=== PATIENT | female | born 1985 | race American Indian/Alaskan Native ===

== ENCOUNTER 2017-08-17 13:41 | Inpatient (IN) | payer MEDICAID ==
[2017-08-17] MEDS ORDERED: TYLENOL PO PRN (15:01)
[2017-08-17 15:29] LABS: Hematocrit 31.6 % (30.3-42.9); Hemoglobin 10.4 gm/dl (10.1-14.3); Mean Corpuscular HGB Conc 33 % (30-34); Mean Corpuscular Hemoglobin 28 pg (28-32); Mean Corpuscular Volume 86 fl (79-97); Platelet Count 260 K/mm3 (140-440); Red Blood Count 3.67 M/mm3 (3.65-5.03); Red Cell Distribution Width 13.9 % (13.2-15.2); White Blood Count 7.7 K/mm3 (4.5-11.0)
[2017-08-17 15:49] LABS: Alanine Aminotransferase 9 units/L (7-56); Lactate Dehydrogenase 330 units/L (91-180); Uric Acid 4.4 mg/dL (3.5-7.6)
--- NOTE | 2017-08-17 16:02 | History and Physical Report ---
History of Present Illness Date of examination: 08/17/17 Date of admission: 08/17/17 15:12 Chief complaint: SIUP at 26 weeks Elevated BP Visual disturbances History of present illness: Patient is a 32 year old female , lMP 02/23/17, EDC 11/22/17 who is at 26 weeks and 1 day gestation who was sent form [facility] [place] ED for elevated BP and visual disturbances. She is a patient of [facility] [employer] who has a h/o chronic HTN and has been on labetolol 200 mg BID. She also has been seeing [facility]. She had missed several PN appointments. As per patient, she developed white spots in front of her eyes yesterday. She denied any headache, RUQ pain, or dizziness. She reported good movement. She went to the ER at [facility] [place] and was transferred here because there is no OB service over there. On arrival here , her BP was 156/104, repeat BP was 147/94. PMH: migraines, chronic HTN, bipolar. PSH: C/section x 1 Allergy: NKDA Social: denies any smoking, ETOH, IVDA. Fam Hx: DM, CAD, cancer. Meds: labetolol, PNV ROS: as above. Prenatals labs: early GcT 158 Physical exam: Gnl: NAD Vitals:BP 153/97, T98.1F, HR 97, RR 18 HEENT: normal Abd: soft, NT, gravid uterus 30 cm fundus. Vagina: cervix closed/long/post. Ext: no edema, no calf TN, no Idalia's sign. Labs: H/H: 10.4/31.6 Uric acid: 4.4, LFTs: WNL. Assessment: 1. 32 year old at 26 weeks and 1 day gestation with superimposed pre- eclampsia on chronic HTN. 2. Previous C/section x 1 Plan: 1. Admit to Labor and delivery. 2. start magnesium. Monitor Mg level. Monitor urine output. Monitor BP. 3. Start 24-hr urine. 4. [facility] consult. 5. GCT before 28 weeks. 6. Sonogram for BPP and growth. She was admitted amd Mg sulfate was started. She is is being maintained at 2gm/ hr. 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 STATE History: abnormal PAP smear, herpes Family/Genetic History: diabetes, heart disease, hypertension, cancer (breast, colon, skin) Social history: no significant social history - Obstetrical History Expected Date of Delivery: 11/22/17 Actual Gestation: 26 Week(s) 1 Day(s) : 5 Para: 4 Hx # Term Pregnancies: 2 (pre-eclampsia) Number of Pregnancies: 2 (#3, at 36 weeks, pre-eclampsia, #4, Emergency C/section at 31 weeks for NRFHT ) Number of Living Children: 4 Medications and Allergies Allergies Allergy/AdvReac Type Severity Reaction Status Date / Time No Known Allergies Allergy Verified 11/14/13 21:30 Home Medications Medication Instructions Recorded Confirmed Last Taken Type Labetalol HCl [Labetalol HCl] 300 mg PO BID 11/14/13 12/27/13 12/26/13 17:30 History 300 Pnv with Ca,No.72/Iron/FA 1 tab PO DAILY 11/14/13 12/27/13 12/26/13 12:30 History [ Plus Tablet] 1 HYDROcodone/APAP 10-325 [[place] 1 each PO Q8HR PRN #20 tablet 03/22/14 Unknown Rx 10/325] Active Meds: Active Medications Acetaminophen (Tylenol) 650 mg PO Q4H PRN PRN Reason: Pain MILD(1-3)/Fever >100.5/MAO Docusate Sodium (Colace) 100 mg PO Q12H PRN PRN Reason: Constipation Multivitamins/Iron/Calcium ( Vitamin) 1 each PO QDAY NOELLE Review of Systems Eyes: blurred vision - Vital Signs Vital signs: Vital Signs Temp Resp Pulse Ox 98.1 F 18 98 08/17/17 14:01 08/17/17 14:01 08/17/17 14:01 Temp Pulse Resp BP Pulse Ox 98.1 F 102 H 18 149/97 99 08/17/17 14:01 08/17/17 15:57 08/17/17 14:01 08/17/17 15:06 08/17/17 15:57 - Physical Exam Breasts: Positive: deferred Cardiovascular: Normal S1, Normal S2 Lungs: Positive: Clear to auscultation Vulva: both: normal Cervix: Positive: other (Closed/long/post) Uterus: Positive: other (30 week size) Adnexa: both: normal Deep Tendon Reflex Grade: Normal +2 - Obstetrical FHR: other (130's bpm, + accels) Cervical Dilatation: 0 (closed/long/post) Cervical Effacement Percentage: 0 Uterine Contraction Pattern: Absent Results Result Diagrams: 08/17/17 14:20 08/17/17 14:20 Abnormal lab results 08/17/17 Range/Units 14:20 Creatinine 0.4 L (0.7-1.2) mg/dL Lactate Dehydrogenase 330 H (91-180) units/L All other labs normal. Ultrasound: pending Assessment and Plan - Patient Problems (1) Pre-eclampsia superimposed on chronic hypertension, antepartum Onset Date: ~08/17/17 Current Visit: Yes Status: Acute Plan to address problem: 1. Admit to Labor and Delivery Floor. 2. Mg sulfate 4 gm loading dose, then at 2 gm/hr. Monitor Mg level Q 6 hrs. 3. Toxemia labs sent. F/U results. 24-hr urine for protein and Cr clearance. 3. Monitor BP, urine output, 4. Continous monitoring. 5. [facility] consult. (2) Previous delivery, antepartum Current Visit: Yes Status: Acute
[2017-08-17] MEDS ORDERED: MAGNESIUM SULFATE 4GM/100ML 4 GM/100 ML BAG IV ONE (16:35)
[2017-08-17] MEDS ORDERED: LACTATED RINGERS 1,000 ML ONE (17:11)
[2017-08-17] MEDS: MAGNESIUM SULFATE 40GM/1000ML 40 GM/1,000 ML BAG IV SCH (18:06)
[2017-08-18] MEDS ORDERED: LACTATED RINGERS 1,000 ML ONE ×2 (07:01→23:39)
--- NOTE | 2017-08-18 07:32 | Ultrasound Report ---
ULTRASOUND BIOPHYSICAL PROFILE: History: well being, chronic hypotension, lower abdominal pain during Technique: Transabdominal ultrasound with Doppler interrogation. 2 - breathing movements 2 - movements 2 - posture and tone 2 - Qualitative amniotic fluid volume 8 - TOTAL SCORE OF POSSIBLE 8 Heart Rate (bpm) 153
--- NOTE | 2017-08-18 09:06 | Progress Note ---
Assessment and Plan - Patient Problems (1) Pre-eclampsia superimposed on chronic hypertension, antepartum Onset Date: ~08/17/17 Current Visit: Yes Status: Acute (2) Previous delivery, antepartum Current Visit: Yes Status: Acute Subjective - Subjective Date of service: 08/18/17 Interval history: Patient is a 32 year old female , lMP 02/23/17, EDC 11/22/17 who is at 26 weeks and 2 day gestation who was sent form [facility] ED for elevated BP and visual disturbances. She is a patient of [facility] [employer] who has a h/o chronic HTN and has been on labetolol 200 mg BID. She also [facility]. She had missed several PN appointments. As per patient, she developed white spots in front of her eyes yesterday. She denied any headache, RUQ pain, or dizziness. She reported good movement. She went to the ER at [facility] and was transferred here because there is no OB service over there. On arrival here , her BP was 156/104, repeat BP was 147/94. Since admission, BP has been stable in the 130/80's range. Today, she denies any headache, visual changes or RUQ pain. NsT is CAT 1, BPP is 8/8. She has been on magnesium sulfate and level is therapeutic. LFTs were normal. PMH: migraines, chronic HTN, bipolar. PSH: C/section x 1 Allergy: NKDA Social: denies any smoking, ETOH, IVDA. Fam Hx: DM, CAD, cancer. Meds: labetolol, PNV ROS: as above. Prenatals labs: early GcT 158 Physical exam: Gnl: NAD Vitals:BP 153/97, T98.1F, HR 97, RR 18 HEENT: normal Abd: soft, NT, gravid uterus 30 cm fundus. Vagina: cervix closed/long/post. Ext: no edema, no calf TN, no Idalia's sign. Labs: H/H: 10.4/31.6 Uric acid: 4.4, LFTs: WNL. Mg level 4.6. Assessment: 1. 32 year old at 26 weeks and 2 day gestation with superimposed pre- eclampsia on chronic HTN. She has been on Mg. 2. Previous C/section x 1. Plan: 1. Admit to Labor and delivery. 2. Monitor Mg level. Monitor urine output. Monitor BP. 3. F/U 24-hr urine. 4. [facility] consult. 5. GCT before 28 weeks. She was admitted amd Mg sulfate was started. She is is being maintained at 2gm/ hr. Objective - Vital Signs Vital Signs: Vital Signs - 12hr 08/17/17 08/17/17 08/17/17 21:07 21:10 21:12 Temperature Pulse Rate 116 H 114 H 113 H Respiratory Rate Blood Pressure 129/68 Blood Pressure [Left] O2 Sat by Pulse 97 94 95 Oximetry 08/17/17 08/17/17 08/17/17 21:17 21:22 21:28 Temperature Pulse Rate 117 H 111 H 114 H Respiratory Rate Blood Pressure Blood Pressure [Left] O2 Sat by Pulse 98 98 98 Oximetry 08/17/17 08/17/17 08/17/17 21:33 21:38 21:40 Temperature Pulse Rate 125 H 107 H 107 H Respiratory Rate Blood Pressure 131/85 Blood Pressure [Left] O2 Sat by Pulse 98 97 Oximetry 08/17/17 08/17/17 08/17/17 21:43 21:48 21:53 Temperature Pulse Rate 109 H 107 H 111 H Respiratory Rate Blood Pressure Blood Pressure [Left] O2 Sat by Pulse 97 97 98 Oximetry 08/17/17 08/17/17 08/17/17 21:58 22:03 22:08 Temperature Pulse Rate 107 H 104 H 107 H Respiratory Rate Blood Pressure Blood Pressure [Left] O2 Sat by Pulse 97 97 98 Oximetry 08/17/17 08/17/17 08/17/17 22:10 22:13 22:18 Temperature Pulse Rate 107 H 108 H 112 H Respiratory Rate Blood Pressure 131/81 Blood Pressure [Left] O2 Sat by Pulse 97 97 Oximetry 08/17/17 08/17/17 08/17/17 22:23 22:28 22:33 Temperature Pulse Rate 107 H 107 H 107 H Respiratory Rate Blood Pressure Blood Pressure [Left] O2 Sat by Pulse 99 98 99 Oximetry 08/17/17 08/17/17 08/17/17 22:38 22:40 22:43 Temperature Pulse Rate 106 H 111 H 110 H Respiratory Rate Blood Pressure 131/92 Blood Pressure [Left] O2 Sat by Pulse 99 98 Oximetry 08/17/17 08/17/17 08/17/17 22:48 22:53 22:58 Temperature Pulse Rate 104 H 100 H 99 H Respiratory Rate Blood Pressure Blood Pressure [Left] O2 Sat by Pulse 99 99 100 Oximetry 08/17/17 08/17/17 08/17/17 23:03 23:08 23:10 Temperature Pulse Rate 99 H 102 H 105 H Respiratory Rate Blood Pressure 157/86 Blood Pressure [Left] O2 Sat by Pulse 98 99 Oximetry 08/17/17 08/17/17 08/17/17 23:13 23:18 23:23 Temperature Pulse Rate 102 H 107 H 113 H Respiratory Rate Blood Pressure Blood Pressure [Left] O2 Sat by Pulse 99 98 100 Oximetry 08/17/17 08/17/17 08/17/17 23:28 23:33 23:38 Temperature Pulse Rate 110 H 104 H 108 H Respiratory Rate Blood Pressure Blood Pressure [Left] O2 Sat by Pulse 98 98 99 Oximetry 08/17/17 08/17/17 08/17/17 23:40 23:43 23:48 Temperature Pulse Rate 100 H 102 H 105 H Respiratory Rate Blood Pressure 138/83 Blood Pressure [Left] O2 Sat by Pulse 98 98 Oximetry 08/17/17 08/17/17 08/18/17 23:53 23:58 00:03 Temperature Pulse Rate 104 H 104 H 103 H Respiratory Rate Blood Pressure Blood Pressure [Left] O2 Sat by Pulse 98 99 99 Oximetry 08/18/17 08/18/17 08/18/17 00:08 00:13 00:18 Temperature Pulse Rate 104 H 104 H 104 H Respiratory Rate Blood Pressure Blood Pressure [Left] O2 Sat by Pulse 99 100 99 Oximetry 08/18/17 08/18/17 08/18/17 00:23 00:28 00:33 Temperature Pulse Rate 105 H 104 H 105 H Respiratory Rate Blood Pressure Blood Pressure [Left] O2 Sat by Pulse 99 98 99 Oximetry 08/18/17 08/18/17 08/18/17 00:38 00:40 00:43 Temperature Pulse Rate 101 H 100 H 105 H Respiratory Rate Blood Pressure 142/84 Blood Pressure [Left] O2 Sat by Pulse 98 99 Oximetry 08/18/17 08/18/17 08/18/17 00:48 00:53 00:58 Temperature Pulse Rate 101 H 100 H 99 H Respiratory Rate Blood Pressure Blood Pressure [Left] O2 Sat by Pulse 97 99 99 Oximetry 08/18/17 08/18/17 08/18/17 01:03 01:08 01:10 Temperature Pulse Rate 103 H 98 H 98 H Respiratory Rate Blood Pressure 131/83 Blood Pressure [Left] O2 Sat by Pulse 99 98 Oximetry 08/18/17 08/18/17 08/18/17 01:13 01:18 01:23 Temperature Pulse Rate 99 H 102 H 104 H Respiratory Rate Blood Pressure Blood Pressure [Left] O2 Sat by Pulse 99 99 99 Oximetry 08/18/17 08/18/17 08/18/17 01:28 01:33 01:35 Temperature Pulse Rate 100 H 98 H 101 H Respiratory Rate Blood Pressure Blood Pressure [Left] O2 Sat by Pulse 99 98 89 Oximetry 08/18/17 08/18/17 08/18/17 01:38 01:40 01:43 Temperature Pulse Rate 99 H 100 H 106 H Respiratory Rate Blood Pressure 134/87 Blood Pressure [Left] O2 Sat by Pulse 98 97 Oximetry 08/18/17 08/18/17 08/18/17 01:44 01:48 01:53 Temperature Pulse Rate 103 H 107 H 104 H Respiratory Rate Blood Pressure Blood Pressure [Left] O2 Sat by Pulse 94 95 96 Oximetry 08/18/17 08/18/17 08/18/17 01:58 02:03 02:08 Temperature Pulse Rate 105 H 105 H 106 H Respiratory Rate Blood Pressure Blood Pressure [Left] O2 Sat by Pulse 97 97 95 Oximetry 08/18/17 08/18/17 08/18/17 02:10 02:13 02:14 Temperature Pulse Rate 107 H 107 H 109 H Respiratory Rate Blood Pressure 139/83 Blood Pressure [Left] O2 Sat by Pulse 96 93 Oximetry 08/18/17 08/18/17 08/18/17 02:18 02:23 02:26 Temperature Pulse Rate 106 H 107 H 105 H Respiratory Rate Blood Pressure Blood Pressure [Left] O2 Sat by Pulse 97 98 93 Oximetry 08/18/17 08/18/17 08/18/17 02:28 02:33 02:38 Temperature Pulse Rate 106 H 106 H 101 H Respiratory Rate Blood Pressure Blood Pressure [Left] O2 Sat by Pulse 97 88 94 Oximetry 08/18/17 08/18/17 08/18/17 02:40 02:43 02:48 Temperature Pulse Rate 104 H 108 H 109 H Respiratory Rate Blood Pressure 129/82 Blood Pressure [Left] O2 Sat by Pulse 99 99 Oximetry 08/18/17 08/18/17 08/18/17 02:53 02:58 03:03 Temperature Pulse Rate 111 H 105 H 107 H Respiratory Rate Blood Pressure Blood Pressure [Left] O2 Sat by Pulse 98 98 96 Oximetry 08/18/17 08/18/17 08/18/17 03:08 03:10 03:13 Temperature Pulse Rate 112 H 104 H 101 H Respiratory Rate Blood Pressure 136/86 Blood Pressure [Left] O2 Sat by Pulse 96 99 Oximetry 08/18/17 08/18/17 08/18/17 03:18 03:23 03:28 Temperature Pulse Rate 108 H 102 H 101 H Respiratory Rate Blood Pressure Blood Pressure [Left] O2 Sat by Pulse 98 98 98 Oximetry 08/18/17 08/18/17 08/18/17 03:33 03:38 03:43 Temperature Pulse Rate 106 H 107 H 105 H Respiratory Rate Blood Pressure Blood Pressure [Left] O2 Sat by Pulse 97 97 97 Oximetry 08/18/17 08/18/17 08/18/17 03:48 03:53 03:58 Temperature Pulse Rate 105 H 105 H 101 H Respiratory Rate Blood Pressure Blood Pressure [Left] O2 Sat by Pulse 97 96 96 Oximetry 08/18/17 08/18/17 08/18/17 04:00 04:03 04:08 Temperature Pulse Rate 103 H 106 H 106 H Respiratory Rate Blood Pressure Blood Pressure [Left] O2 Sat by Pulse 94 96 97 Oximetry 08/18/17 08/18/17 08/18/17 04:13 04:17 04:18 Temperature Pulse Rate 106 H 108 H 107 H Respiratory Rate Blood Pressure Blood Pressure [Left] O2 Sat by Pulse 96 94 96 Oximetry 08/18/17 08/18/17 08/18/17 04:20 04:23 04:25 Temperature Pulse Rate 103 H 110 H 98 H Respiratory Rate Blood Pressure 126/78 Blood Pressure [Left] O2 Sat by Pulse 98 87 Oximetry 08/18/17 08/18/17 08/18/17 04:34 04:39 04:44 Temperature Pulse Rate 103 H 110 H 106 H Respiratory Rate Blood Pressure Blood Pressure [Left] O2 Sat by Pulse 99 98 99 Oximetry 08/18/17 08/18/17 08/18/17 04:49 04:54 04:59 Temperature Pulse Rate 103 H 105 H 100 H Respiratory Rate Blood Pressure Blood Pressure [Left] O2 Sat by Pulse 99 99 97 Oximetry 08/18/17 08/18/17 08/18/17 05:04 05:09 05:14 Temperature Pulse Rate 105 H 107 H 104 H Respiratory Rate Blood Pressure Blood Pressure [Left] O2 Sat by Pulse 97 97 96 Oximetry 08/18/17 08/18/17 08/18/17 05:17 05:19 05:20 Temperature Pulse Rate 107 H 104 H 104 H Respiratory Rate Blood Pressure 134/82 Blood Pressure [Left] O2 Sat by Pulse 94 96 Oximetry 08/18/17 08/18/17 08/18/17 05:24 05:29 05:34 Temperature Pulse Rate 105 H 106 H 104 H Respiratory Rate Blood Pressure Blood Pressure [Left] O2 Sat by Pulse 96 96 97 Oximetry 08/18/17 08/18/17 08/18/17 05:39 05:40 05:44 Temperature Pulse Rate 102 H 107 H 109 H Respiratory Rate Blood Pressure Blood Pressure [Left] O2 Sat by Pulse 96 94 99 Oximetry 08/18/17 08/18/17 08/18/17 05:49 05:54 05:59 Temperature Pulse Rate 102 H 104 H 108 H Respiratory Rate Blood Pressure Blood Pressure [Left] O2 Sat by Pulse 98 99 96 Oximetry 08/18/17 08/18/17 08/18/17 06:00 06:04 06:09 Temperature Pulse Rate 112 H 107 H 102 H Respiratory Rate Blood Pressure Blood Pressure [Left] O2 Sat by Pulse 94 98 99 Oximetry 08/18/17 08/18/17 08/18/17 06:14 06:19 06:20 Temperature Pulse Rate 107 H 111 H 111 H Respiratory Rate Blood Pressure 123/87 Blood Pressure [Left] O2 Sat by Pulse 99 99 Oximetry 08/18/17 08/18/17 08/18/17 06:24 06:29 06:34 Temperature Pulse Rate 109 H 104 H 109 H Respiratory Rate Blood Pressure Blood Pressure [Left] O2 Sat by Pulse 95 93 99 Oximetry 08/18/17 08/18/17 08/18/17 06:39 06:41 06:44 Temperature Pulse Rate 105 H 103 H 105 H Respiratory Rate Blood Pressure Blood Pressure [Left] O2 Sat by Pulse 98 93 97 Oximetry 08/18/17 08/18/17 08/18/17 06:46 06:49 06:54 Temperature Pulse Rate 107 H 111 H 106 H Respiratory Rate Blood Pressure Blood Pressure [Left] O2 Sat by Pulse 94 95 96 Oximetry 08/18/17 08/18/17 08/18/17 06:59 07:04 07:10 Temperature Pulse Rate 111 H 108 H 107 H Respiratory Rate Blood Pressure Blood Pressure [Left] O2 Sat by Pulse 98 99 99 Oximetry 08/18/17 08/18/17 08/18/17 07:15 07:20 07:24 Temperature Pulse Rate 109 H 113 H 106 H Respiratory Rate Blood Pressure 134/89 Blood Pressure [Left] O2 Sat by Pulse 98 96 93 Oximetry 08/18/17 08/18/17 08/18/17 07:25 07:30 07:34 Temperature Pulse Rate 103 H 106 H 104 H Respiratory Rate Blood Pressure Blood Pressure [Left] O2 Sat by Pulse 93 97 94 Oximetry 08/18/17 08/18/17 08/18/17 07:35 07:40 07:45 Temperature Pulse Rate 104 H 104 H 105 H Respiratory Rate Blood Pressure Blood Pressure [Left] O2 Sat by Pulse 96 97 97 Oximetry 08/18/17 08/18/17 08/18/17 07:50 07:52 07:55 Temperature 97.7 F Pulse Rate 107 H 107 H 110 H Respiratory 20 Rate Blood Pressure Blood Pressure 134/89 [Left] O2 Sat by Pulse 99 99 98 Oximetry 08/18/17 08/18/17 08/18/17 08:00 08:05 08:10 Temperature Pulse Rate 106 H 105 H 108 H Respiratory Rate Blood Pressure Blood Pressure [Left] O2 Sat by Pulse 99 98 98 Oximetry 08/18/17 08/18/17 08/18/17 08:15 08:20 08:24 Temperature Pulse Rate 111 H 107 H 113 H Respiratory Rate Blood Pressure 107/68 Blood Pressure [Left] O2 Sat by Pulse 97 97 Oximetry 08/18/17 08/18/17 08/18/17 08:25 08:30 08:36 Temperature Pulse Rate 107 H 104 H 103 H Respiratory Rate Blood Pressure Blood Pressure [Left] O2 Sat by Pulse 98 99 97 Oximetry 08/18/17 08/18/17 08/18/17 08:40 08:45 08:50 Temperature Pulse Rate 104 H 113 H 114 H Respiratory Rate Blood Pressure Blood Pressure [Left] O2 Sat by Pulse 99 98 99 Oximetry 08/18/17 08/18/17 08:54 08:55 Temperature Pulse Rate 111 H 111 H Respiratory Rate Blood Pressure 123/78 Blood Pressure [Left] O2 Sat by Pulse 98 Oximetry - Labs Labs: Abnormal Labs 08/17/17 08/17/17 08/18/17 14:20 17:51 00:00 Creatinine 0.4 L Magnesium 3.30 H 4.20 H Lactate Dehydrogenase 330 H 08/18/17 05:40 Creatinine Magnesium 4.60 H Lactate Dehydrogenase Laboratory Results - last 24 hr 08/17/17 08/17/17 08/17/17 14:20 14:20 17:51 WBC 7.7 RBC 3.67 Hgb 10.4 Hct 31.6 MCV 86 MCH 28 MCHC 33 RDW 13.9 Plt Count 260 Creatinine 0.4 L Estimated GFR > 60 Uric Acid 4.4 Magnesium 3.30 H AST 25 ALT 9 Lactate Dehydrogenase 330 H 08/18/17 08/18/17 00:00 05:40 WBC RBC Hgb Hct MCV MCH MCHC RDW Plt Count Creatinine Estimated GFR Uric Acid Magnesium 4.20 H 4.60 H AST ALT Lactate Dehydrogenase
[2017-08-18] MEDS: PRENATAL VITAMIN PO SCH (09:58)
[2017-08-18] MEDS: COLACE PO PRN (10:02)
[2017-08-18] MEDS: MAGNESIUM SULFATE 40GM/1000ML 40 GM/1,000 ML BAG IV SCH (13:34)
[2017-08-18] MEDS: NORMODYNE PO SCH ×2 (16:50→23:42)
--- NOTE | 2017-08-19 09:00 | Progress Note ---
Assessment and Plan - Patient Problems (1) Pre-eclampsia superimposed on chronic hypertension, antepartum Onset Date: ~08/17/17 Current Visit: Yes Status: Acute (2) Previous delivery, antepartum Current Visit: Yes Status: Acute Subjective - Subjective Date of service: 08/19/17 Principal diagnosis: Superimposed pre-eclampsia on chronic HTN Interval history: Patient is a 32 year old female , LMP 02/23/17, EDC 11/22/17 who is at 26 weeks and 3 day gestation who was sent form [facility] [place] for elevated BP and visual disturbances. She is a patient of [facility] who has a h/o chronic HTN and has been on labetolol 200 mg BID. She also has been seeing [facility]. She had missed several PN appointments. As per patient, she developed white spots in front of her eyes yesterday. She denied any headache, RUQ pain, or dizziness. She reported good movement. She went to the [place] at [facility] and was transferred here because there is no OB service over there. On arrival here , her BP was 156/104, repeat BP was 147/94. She was started on Mg sulfate. Tox labs were normal, 24-hr urine protein was 30 mg. Since admission, BP has been stable in the 130/80's range yesterday and in the 120/70's range. Physical exam: Gnl: NAD Vitals:BP 107/75, T97.2F, HR 89, RR 18 HEENT: normal Abd: soft, NT, gravid uterus 30 cm fundus. Vagina: cervix closed/long/post. Ext: no edema, no calf TN, no Idalia's sign. Labs: H/H: 10.4/31.6 Uric acid: 4.4, LFTs: WNL. Mg level 4.6. Assessment: 1. 32 year old at 26 weeks and 3 day gestation with superimposed pre- eclampsia on chronic HTN. She has been on Mg. 2. Previous C/section x 1. Plan: 1. Admit to Labor and delivery. 2. Monitor Mg level. Monitor urine output. Monitor BP. 3. Betamethasone for lung maturity. 4. [facility] consult. 5. GCT before 28 weeks. She was admitted amd Mg sulfate was started. She is is being maintained at 2gm/ hr. Objective - Vital Signs Vital Signs: Vital Signs - 12hr 08/18/17 08/18/17 08/18/17 21:35 22:15 22:55 Temperature Pulse Rate 100 H 102 H 100 H Respiratory Rate Blood Pressure 136/73 133/86 130/76 Blood Pressure [Left] O2 Sat by Pulse Oximetry 08/18/17 08/18/17 08/18/17 23:35 23:42 23:44 Temperature Pulse Rate 100 H 100 H 100 H Respiratory Rate Blood Pressure 142/75 140/66 140/66 Blood Pressure [Left] O2 Sat by Pulse Oximetry 08/19/17 08/19/17 08/19/17 00:15 00:55 01:35 Temperature Pulse Rate 103 H 103 H 100 H Respiratory Rate Blood Pressure 132/73 123/76 118/74 Blood Pressure [Left] O2 Sat by Pulse Oximetry 08/19/17 08/19/17 08/19/17 02:15 02:38 02:39 Temperature 98.9 F Pulse Rate 100 H 98 H Respiratory 22 Rate Blood Pressure 120/65 Blood Pressure [Left] O2 Sat by Pulse 98 Oximetry 08/19/17 08/19/17 08/19/17 02:44 02:49 02:54 Temperature Pulse Rate 98 H 98 H 98 H Respiratory Rate Blood Pressure Blood Pressure [Left] O2 Sat by Pulse 97 97 96 Oximetry 08/19/17 08/19/17 08/19/17 02:55 02:59 03:04 Temperature Pulse Rate 96 H 98 H 97 H Respiratory Rate Blood Pressure 111/64 Blood Pressure [Left] O2 Sat by Pulse 96 96 Oximetry 08/19/17 08/19/17 08/19/17 03:09 03:14 03:19 Temperature Pulse Rate 97 H 97 H 95 H Respiratory Rate Blood Pressure Blood Pressure [Left] O2 Sat by Pulse 96 96 96 Oximetry 08/19/17 08/19/17 08/19/17 03:35 04:15 04:55 Temperature Pulse Rate 93 H 96 H 93 H Respiratory Rate Blood Pressure 107/65 110/80 106/56 Blood Pressure [Left] O2 Sat by Pulse Oximetry 08/19/17 08/19/17 08/19/17 05:35 05:50 05:52 Temperature Pulse Rate 93 H 95 H 98 H Respiratory Rate Blood Pressure 117/71 112/66 Blood Pressure [Left] O2 Sat by Pulse 98 Oximetry 08/19/17 08/19/17 08/19/17 05:57 06:02 06:07 Temperature Pulse Rate 95 H 95 H 95 H Respiratory Rate Blood Pressure Blood Pressure [Left] O2 Sat by Pulse 98 97 96 Oximetry 08/19/17 08/19/17 08/19/17 06:12 06:17 06:22 Temperature Pulse Rate 96 H 95 H 96 H Respiratory Rate Blood Pressure Blood Pressure [Left] O2 Sat by Pulse 97 97 97 Oximetry 08/19/17 08/19/17 08/19/17 06:27 06:32 06:33 Temperature Pulse Rate 100 H 94 H 98 H Respiratory Rate Blood Pressure Blood Pressure [Left] O2 Sat by Pulse 96 93 91 Oximetry 08/19/17 08/19/17 08/19/17 06:37 06:42 06:47 Temperature Pulse Rate 97 H 98 H 98 H Respiratory Rate Blood Pressure Blood Pressure [Left] O2 Sat by Pulse 94 98 97 Oximetry 08/19/17 08/19/17 08/19/17 06:52 06:57 07:02 Temperature Pulse Rate 96 H 99 H 98 H Respiratory Rate Blood Pressure Blood Pressure [Left] O2 Sat by Pulse 99 98 97 Oximetry 08/19/17 08/19/17 08/19/17 07:07 07:12 07:17 Temperature Pulse Rate 98 H 99 H 98 H Respiratory Rate Blood Pressure Blood Pressure [Left] O2 Sat by Pulse 97 95 96 Oximetry 08/19/17 08/19/17 08/19/17 07:22 07:27 07:32 Temperature Pulse Rate 99 H 97 H 98 H Respiratory Rate Blood Pressure Blood Pressure [Left] O2 Sat by Pulse 95 96 96 Oximetry 08/19/17 08/19/17 08/19/17 07:37 07:42 07:47 Temperature Pulse Rate 99 H 97 H 91 H Respiratory Rate Blood Pressure Blood Pressure [Left] O2 Sat by Pulse 95 100 97 Oximetry 08/19/17 08/19/17 08/19/17 07:52 07:57 08:02 Temperature Pulse Rate 98 H 97 H 92 H Respiratory Rate Blood Pressure Blood Pressure [Left] O2 Sat by Pulse 96 99 98 Oximetry 08/19/17 08/19/17 08/19/17 08:07 08:12 08:17 Temperature Pulse Rate 99 H 96 H 103 H Respiratory Rate Blood Pressure Blood Pressure [Left] O2 Sat by Pulse 98 99 98 Oximetry 08/19/17 08/19/17 08/19/17 08:21 08:22 08:25 Temperature 97.2 F L Pulse Rate 93 H 98 H 96 H Respiratory 18 Rate Blood Pressure 107/75 Blood Pressure 107/75 [Left] O2 Sat by Pulse 98 98 Oximetry 08/19/17 08/19/17 08/19/17 08:27 08:32 08:37 Temperature Pulse Rate 89 94 H 100 H Respiratory Rate Blood Pressure Blood Pressure [Left] O2 Sat by Pulse 97 98 98 Oximetry 08/19/17 08/19/17 08/19/17 08:42 08:47 08:50 Temperature Pulse Rate 99 H 101 H 100 H Respiratory Rate Blood Pressure 126/78 Blood Pressure [Left] O2 Sat by Pulse 96 90 Oximetry 08/19/17 08/19/17 08:52 08:57 Temperature Pulse Rate 98 H 103 H Respiratory Rate Blood Pressure Blood Pressure [Left] O2 Sat by Pulse 97 99 Oximetry - Labs Labs: Abnormal Labs 08/17/17 08/17/17 08/18/17 14:20 17:51 00:00 Creatinine 0.4 L Magnesium 3.30 H 4.20 H Lactate Dehydrogenase 330 H Ur Creatinine 24 Hour Ur Microalbumin 24 Hr 08/18/17 08/18/17 08/18/17 05:40 14:17 16:00 Creatinine Magnesium 4.60 H 4.40 H Lactate Dehydrogenase Ur Creatinine 24 Hour 0.7 L Ur Microalbumin 24 Hr 30.0 H 08/18/17 08/19/17 19:02 04:08 Creatinine Magnesium 4.60 H 4.50 H Lactate Dehydrogenase Ur Creatinine 24 Hour Ur Microalbumin 24 Hr Laboratory Results - last 24 hr 08/18/17 08/18/17 08/18/17 14:17 16:00 19:02 Magnesium 4.40 H 4.60 H Urine Total Volume 3600 Urine Creatinine 18.9 Ur Creatinine 24 Hour 0.7 L Urine Microalbumin < 1.2 Ur Microalbumin 24 Hr 30.0 H 08/19/17 04:08 Magnesium 4.50 H Urine Total Volume Urine Creatinine Ur Creatinine 24 Hour Urine Microalbumin Ur Microalbumin 24 Hr
[2017-08-19] MEDS ORDERED: LACTATED RINGERS 1,000 ML ONE (09:41)
[2017-08-19] MEDS: MAGNESIUM SULFATE 40GM/1000ML 40 GM/1,000 ML BAG IV SCH (09:49)
[2017-08-19] MEDS: NORMODYNE PO SCH ×2 (09:51→22:40)
[2017-08-19] MEDS: PRENATAL VITAMIN PO SCH (09:53)
[2017-08-19] MEDS: CELESTONE SOLUSPAN IM SCH (09:54)
[2017-08-19] MEDS ORDERED: LACTATED RINGERS 1,000 ML IV SCH (11:00)
--- NOTE | 2017-08-19 13:33 | Consultation ---
History of Present Illness Reason for consult: other (Patient is a 32 year old female , LMP 02/23/17 , EDC 11/22/17 who is at 26 weeks and 3 day gestation patient was admiited for elevated BP and visual disturbances. She is a patient of [facility] who has a h/o chronic HTN and has been on labetolol 200 mg BID. Followed by [facility] for CHTN and Morbid Obesity Reported non compliance with OB appointments . As per patient [place] [facility] [place] [facility] Admission BP 140-150's/90-100's. MgSO in progress and BMZ in progress 24-hr urine protein was 30 mg. Since admission, BP has been stable in the 130/80's range yesterday and today 110-120's/70's range. Denies VB, ABD pain, epigastric pain, contractions, and sxs of superimposed PreEclampsia. 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 History: abnormal PAP smear, herpes Family/Genetic History: diabetes, heart disease, hypertension, cancer (breast, colon, skin) - Obstetrical History : 5 Medications and Allergies Allergies Allergy/AdvReac Type Severity Reaction Status Date / Time No Known Allergies Allergy Verified 11/14/13 21:30 Home Medications Medication Instructions Recorded Confirmed Last Taken Type Pnv with Ca,No.72/Iron/FA 1 tab PO DAILY 11/14/13 08/18/17 08/16/17 21:00 History [ Plus Tablet] 1 Labetalol HCl [Labetalol HCl] 1 tab PO BID 08/18/17 08/18/17 08/17/17 09:00 History 1 Active Meds: Active Medications Acetaminophen (Tylenol) 650 mg PO Q4H PRN PRN Reason: Pain MILD(1-3)/Fever >100.5/MAO Last Admin: 08/18/17 07:51 Dose: 650 mg Betamethasone Acet/Betameth SodPhos (Celestone Soluspan) 12 mg IM Q24HR NOELLE Stop: 08/20/17 10:01 Last Admin: 08/19/17 09:54 Dose: 12 mg Docusate Sodium (Colace) 100 mg PO Q12H PRN PRN Reason: Constipation Last Admin: 08/18/17 10:02 Dose: 100 mg Lactated Ringer's (Lactated Ringers) 1,000 mls @ 75 mls/hr IV DIRECT [facility] Labetalol HCl (Normodyne) 200 mg PO BID [facility] Last Admin: 08/19/17 09:51 Dose: 200 mg Multivitamins/Iron/Calcium ( Vitamin) 1 each PO QDAY [facility] Last Admin: 08/19/17 09:53 Dose: 1 each Review of Systems Constitutional: no fever Eyes: no photophobia, no other (scotoma) Ears, nose, mouth and throat: no headache Cardiovascular: high blood pressure (CHTN under medical regimen ), no chest pain , no palpitations, no rapid/irregular heart beat, no edema, no syncope Respiratory: no shortness of breath Breasts: deferred Gastrointestinal: no abdominal pain, no nausea, no vomiting, no indigestion Genitourinary: no vaginal bleeding, no vaginal discharge, no leakage of fluid Integumentary: no rash Neurological: no seizures, no syncope, no headaches Hematologic/Lymphatic: no easy bruising, no easy bleeding Allergic/Immunologic: no wheezing - Vital Signs Vital signs: Vital Signs Temp Resp Pulse Ox 98.1 F 18 98 08/17/17 14:01 08/17/17 14:01 08/17/17 14:01 Temp Pulse Resp BP Pulse Ox 97.2 F L 98 H 18 121/69 100 08/19/17 08:21 08/19/17 12:51 08/19/17 08:21 08/19/17 12:51 08/19/17 10:10 - Physical Exam Cardiovascular: Regular rate Lungs: Positive: Normal air movement Abdomen: Negative: tenderness, guarding Uterus: Positive: other (gravid). Negative: tender Extremities: Positive: normal Deep Tendon Reflex Grade: Normal +2 - Obstetrical FHR: category 1 Uterine Contraction Monitor Mode: External Uterine Contraction Pattern: Absent Results Result Diagrams: 08/17/17 14:20 08/17/17 14:20 Abnormal lab results 08/18/17 08/18/17 08/18/17 Range/Units 14:17 16:00 16:00 Magnesium 4.40 H (1.7-2.3) mg/dL Ur Creatinine 24 Hour 0.7 L (0.8-2.8) Ur Microalbumin 24 Hr 30.0 H (0-29) mcg/min Urine Total Protein < 4 L (5-11.8) mg/dL 08/18/17 08/19/17 Range/Units 19:02 04:08 Magnesium 4.60 H 4.50 H (1.7-2.3) mg/dL Ur Creatinine 24 Hour (0.8-2.8) Ur Microalbumin 24 Hr (0-29) mcg/min Urine Total Protein (5-11.8) mg/dL All other labs normal. Ultrasound: pending (Preliminary [facility] report BPP 06/14 with + FHT 153), report reviewed Assessment and Plan Assessment: 1. IUP 26 .3 weeks 2. CHTN adeqaute BP control under current antihypertensive regimen ( Labetalol ) 3. BP 110-120's/70-80's mm Hg with no CLINICAL RESEARCH MANAGER findingd 4. Concern for superimposed pre-eclampsia on chronic HTN. 5. MgSO4 in progress 6. BPP 8/ on 08/17/17 7. Protein, 24 hr urine " Non reportable" 8. Previous C/section x 1. 9. History of PTD at 32 weeks currently 17 [place] 10. 1 GTT screen of 138 mg /dl 11. 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 LFT WNL Plan: 1. Continue inpatient management 2. Continue current medical regimen . 3. Complete Betamethasone for lung maturity. 4. NICU consult. 5. Daily Valtrex with any concern of outbreaks and for suppression regimen at 35-36 weeks 6. With concerns notify art consultant [facility] provider- Dr. Morales
--- NOTE | 2017-08-20 09:50 | Progress Note ---
Assessment and Plan A: 32 year old female , LMP 02/23/17, EDC 11/22/17 who is at 26 weeks and 4 day gestation -Chronic HTN Issues: - SONIA little BP control under current antihypertensive regimen ( Labetalol ) - BP 110-120's/70-80's mm Hg with no ELECTRIC CONTAINER TESTER findings - Oral hx of superimposed pre-eclampsia w/ prior deliveries - s/p Celestone on 08/20/17 - s/p MgSO4 - BPP 8/8 on 08/17/17 - Protein, 24 hr urine ~ less than 5 mg so Non reportable - Previous C/section x 1. 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 Bacon and he agrees Subjective - Subjective Date of service: 08/20/17 Principal diagnosis: IUP at 26+4 wks, r/o Superimposed pre-eclampsia on chronic HTN Interval history: Patient seen and examined, stable doing well. Denies headache, shortness of breath or chest pain, no scotomata or epigastric discomfort. Blood pressure has been well controlled on labetalol 200 mg twice a day, currently 116-120/60 to 80s. Last BPP on 08/17/2017 was 8 out of 8. She has no contractions, no vaginal bleeding and no loss of fluid plus movement She will complete her second dose of steroids today at about ~ 10 AM Patient reports: new complaints, movement normal, no loss of fluid, no vaginal bleeding, no contractions Objective - Vital Signs Vital Signs: Vital Signs - 12hr 08/19/17 08/19/17 08/19/17 21:52 21:57 22:02 Temperature Pulse Rate 107 H 109 H 104 H Respiratory Rate Blood Pressure Blood Pressure [Left] O2 Sat by Pulse 100 99 99 Oximetry 08/19/17 08/19/17 08/19/17 22:07 22:12 22:17 Temperature Pulse Rate 107 H 108 H 103 H Respiratory Rate Blood Pressure Blood Pressure [Left] O2 Sat by Pulse 99 99 98 Oximetry 08/19/17 08/19/17 08/19/17 22:22 22:27 22:32 Temperature Pulse Rate 105 H 111 H 111 H Respiratory Rate Blood Pressure Blood Pressure [Left] O2 Sat by Pulse 99 99 99 Oximetry 08/19/17 08/19/17 08/19/17 22:37 22:40 22:42 Temperature Pulse Rate 108 H 106 H 109 H Respiratory Rate Blood Pressure 124/77 Blood Pressure [Left] O2 Sat by Pulse 99 100 Oximetry 08/19/17 08/19/17 08/19/17 22:47 22:50 22:51 Temperature Pulse Rate 113 H 110 H 105 H Respiratory Rate Blood Pressure 124/77 Blood Pressure [Left] O2 Sat by Pulse 99 73 L Oximetry 08/19/17 08/19/17 08/19/17 22:52 22:57 23:00 Temperature 99.1 F Pulse Rate 108 H 107 H 105 H Respiratory 20 Rate Blood Pressure Blood Pressure 124/77 [Left] O2 Sat by Pulse 99 98 97 Oximetry 08/19/17 08/19/17 08/19/17 23:02 23:07 23:12 Temperature Pulse Rate 108 H 105 H 105 H Respiratory Rate Blood Pressure Blood Pressure [Left] O2 Sat by Pulse 98 97 97 Oximetry 08/19/17 08/19/17 08/20/17 23:17 23:22 00:21 Temperature Pulse Rate 107 H 106 H 109 H Respiratory Rate Blood Pressure Blood Pressure [Left] O2 Sat by Pulse 98 97 97 Oximetry 08/20/17 08/20/17 08/20/17 00:26 00:31 00:36 Temperature Pulse Rate 98 H 104 H 102 H Respiratory Rate Blood Pressure Blood Pressure [Left] O2 Sat by Pulse 97 97 98 Oximetry 08/20/17 08/20/17 08/20/17 00:41 00:46 00:55 Temperature Pulse Rate 97 H 100 H 95 H Respiratory Rate Blood Pressure Blood Pressure [Left] O2 Sat by Pulse 97 97 98 Oximetry 08/20/17 08/20/17 08/20/17 01:00 01:05 01:10 Temperature Pulse Rate 96 H 99 H 99 H Respiratory Rate Blood Pressure Blood Pressure [Left] O2 Sat by Pulse 97 98 96 Oximetry 08/20/17 08/20/17 08/20/17 01:18 01:23 01:28 Temperature Pulse Rate 103 H 100 H 98 H Respiratory Rate Blood Pressure Blood Pressure [Left] O2 Sat by Pulse 100 98 99 Oximetry 08/20/17 08/20/17 08/20/17 01:33 01:38 01:43 Temperature Pulse Rate 98 H 100 H 101 H Respiratory Rate Blood Pressure Blood Pressure [Left] O2 Sat by Pulse 100 99 99 Oximetry 08/20/17 08/20/17 08/20/17 01:58 03:17 03:22 Temperature Pulse Rate 62 104 H 93 H Respiratory Rate Blood Pressure Blood Pressure [Left] O2 Sat by Pulse 71 L 98 97 Oximetry 08/20/17 08/20/17 08/20/17 03:27 03:32 03:37 Temperature Pulse Rate 98 H 94 H 99 H Respiratory Rate Blood Pressure Blood Pressure [Left] O2 Sat by Pulse 97 98 98 Oximetry 08/20/17 08/20/17 08/20/17 03:42 03:47 03:52 Temperature Pulse Rate 89 88 87 Respiratory Rate Blood Pressure Blood Pressure [Left] O2 Sat by Pulse 95 95 95 Oximetry 08/20/17 08/20/17 08/20/17 03:57 04:02 04:07 Temperature Pulse Rate 87 87 96 H Respiratory Rate Blood Pressure Blood Pressure [Left] O2 Sat by Pulse 98 97 96 Oximetry 08/20/17 08/20/17 08/20/17 04:12 04:17 04:22 Temperature Pulse Rate 94 H 102 H 93 H Respiratory Rate Blood Pressure Blood Pressure [Left] O2 Sat by Pulse 98 96 96 Oximetry 08/20/17 08/20/17 08/20/17 04:27 04:32 04:37 Temperature Pulse Rate 90 90 96 H Respiratory Rate Blood Pressure Blood Pressure [Left] O2 Sat by Pulse 96 96 97 Oximetry 08/20/17 08/20/17 08/20/17 04:42 04:47 04:50 Temperature 98.2 F Pulse Rate 93 H 84 90 Respiratory 18 Rate Blood Pressure 120/63 122/62 Blood Pressure 122/62 [Left] O2 Sat by Pulse 96 96 Oximetry 08/20/17 08/20/17 08/20/17 04:52 04:57 05:02 Temperature Pulse Rate 96 H 95 H 94 H Respiratory Rate Blood Pressure Blood Pressure [Left] O2 Sat by Pulse 97 99 95 Oximetry 08/20/17 08/20/17 08/20/17 05:07 05:12 05:17 Temperature Pulse Rate 98 H 98 H 121 H Respiratory Rate Blood Pressure Blood Pressure [Left] O2 Sat by Pulse 95 94 94 Oximetry 08/20/17 08/20/17 08/20/17 05:22 05:27 05:32 Temperature Pulse Rate 97 H 96 H 104 H Respiratory Rate Blood Pressure Blood Pressure [Left] O2 Sat by Pulse 96 97 96 Oximetry 08/20/17 08/20/17 08/20/17 05:37 05:42 05:47 Temperature Pulse Rate 96 H 101 H 102 H Respiratory Rate Blood Pressure Blood Pressure [Left] O2 Sat by Pulse 96 95 96 Oximetry 08/20/17 08/20/17 08/20/17 05:51 05:52 05:57 Temperature Pulse Rate 95 H 98 H 98 H Respiratory Rate Blood Pressure 121/75 Blood Pressure [Left] O2 Sat by Pulse 96 95 Oximetry 08/20/17 08/20/17 08/20/17 06:02 06:07 06:12 Temperature Pulse Rate 98 H 99 H 96 H Respiratory Rate Blood Pressure Blood Pressure [Left] O2 Sat by Pulse 96 97 95 Oximetry 08/20/17 08/20/17 08/20/17 06:17 06:22 06:27 Temperature Pulse Rate 94 H 73 99 H Respiratory Rate Blood Pressure Blood Pressure [Left] O2 Sat by Pulse 96 91 95 Oximetry 08/20/17 08/20/17 08/20/17 06:32 06:37 06:42 Temperature Pulse Rate 103 H 101 H 101 H Respiratory Rate Blood Pressure Blood Pressure [Left] O2 Sat by Pulse 94 94 94 Oximetry 08/20/17 08/20/17 08/20/17 06:47 06:51 06:52 Temperature Pulse Rate 92 H 100 H 83 Respiratory Rate Blood Pressure 121/70 Blood Pressure [Left] O2 Sat by Pulse 97 74 L Oximetry 08/20/17 08/20/17 08/20/17 06:57 07:02 07:07 Temperature Pulse Rate 101 H 100 H 100 H Respiratory Rate Blood Pressure Blood Pressure [Left] O2 Sat by Pulse 96 96 96 Oximetry 08/20/17 08/20/17 08/20/17 07:12 07:17 07:22 Temperature Pulse Rate 104 H 104 H 93 H Respiratory Rate Blood Pressure Blood Pressure [Left] O2 Sat by Pulse 96 96 98 Oximetry 08/20/17 08/20/17 08/20/17 07:27 07:32 07:37 Temperature Pulse Rate 96 H 95 H 99 H Respiratory Rate Blood Pressure Blood Pressure [Left] O2 Sat by Pulse 97 97 96 Oximetry 08/20/17 08/20/17 08/20/17 07:42 07:47 07:51 Temperature Pulse Rate 100 H 92 H 96 H Respiratory Rate Blood Pressure 112/55 Blood Pressure [Left] O2 Sat by Pulse 97 96 Oximetry 08/20/17 08/20/17 08/20/17 07:52 07:57 08:02 Temperature Pulse Rate 95 H 94 H 97 H Respiratory Rate Blood Pressure Blood Pressure [Left] O2 Sat by Pulse 97 98 97 Oximetry 08/20/17 08/20/17 08/20/17 08:07 08:12 08:16 Temperature 99.1 F Pulse Rate 97 H 94 H Respiratory 18 Rate Blood Pressure Blood Pressure [Left] O2 Sat by Pulse 98 97 Oximetry 08/20/17 08/20/17 08/20/17 09:17 09:50 09:51 Temperature Pulse Rate 107 H 96 H 56 L Respiratory Rate Blood Pressure 127/73 Blood Pressure [Left] O2 Sat by Pulse 98 67 L Oximetry - Exam Cardiovascular: Regular rate, Normal S1, Normal S2 Lungs: Clear to auscultation, Normal air movement Abdomen: Present: normal appearance, soft. Absent: distention, tenderness, guarding, rigidity Uterus: Absent: tenderness - Labs Labs: Abnormal Labs 08/17/17 08/17/17 08/18/17 14:20 17:51 00:00 Creatinine 0.4 L Magnesium 3.30 H 4.20 H Lactate Dehydrogenase 330 H Ur Creatinine 24 Hour Ur Microalbumin 24 Hr Urine Total Protein 08/18/17 08/18/17 08/18/17 05:40 14:17 16:00 Creatinine Magnesium 4.60 H 4.40 H Lactate Dehydrogenase Ur Creatinine 24 Hour 0.7 L Ur Microalbumin 24 Hr 30.0 H Urine Total Protein 08/18/17 08/18/17 08/19/17 16:00 19:02 04:08 Creatinine Magnesium 4.60 H 4.50 H Lactate Dehydrogenase Ur Creatinine 24 Hour Ur Microalbumin 24 Hr Urine Total Protein < 4 L Laboratory Results - last 24 hr 08/18/17 08/20/17 16:00 08:16 Urine Total Volume 3600 Ur Total Protein 24 Hr Not Reportable Urine Total Protein < 4 L Blood Type O POSITIVE
--- NOTE | 2017-08-20 10:06 | Discharge Summary ---
Providers - Providers Date of Admission: 08/18/17 09:11 Date of discharge: 08/20/17 Attending physician: KARLA HOWE MD Primary care physician: KARLA HOWE MD Hospitalization Reason for admission: IUP - , observation Discharge diagnosis: other (IUP at 26+4 weeks, Chronic HTN hypertension) Hospital course: Patient is a 32 year old female , LMP 02/23/17, EDC 11/22/17 admitted at 26 weeks and 1 day gestation for elevated BP and visual disturbances. She is a patient of [facility] who has a h/o chronic HTN and has been on labetolol 200 mg BID. Followed by [facility] for CHTN and Morbid Obesity Reported non compliance with OB appointments . As per patient Initial addmission @ [facility] [place] and was then tranferred to [facility]. Admission BP 140-150's/90-100's. She completed Celestone course and magnesium sulfate per protocol . 24-hr urine protein was less than 5 mg in 24 hours so nonreportable HELLP labs were negative Since admission, BP has been stable in the 130/80's range yesterday and today 110-120's/70's range. Denies VB, ABD pain, epigastric pain, contractions, and sxs of superimposed PreEclampsia. Patient reports AFM BPP on 08/20/2017 was 8 out of 8 She is discharged home to follow-up with M and her primary care physician Condition at discharge: Good Disposition: DC-01 TO HOME OR SELFCARE - Discharge Diagnoses (1) 26 weeks gestation of Status: Acute (2) Hypertension complicating Status: Acute Qualifiers: Trimester: T (3) Non-compliance with treatment Status: Acute Plan - Provider Discharge Summary Activity: no heavy lifting 4 weeks, no strenuous exercise Diet: other (Low salt diet) Instructions: other (RTC for headache, scotomata, DFM, VBor epigastric pain) Additional instructions: [] Smoking cessation referral if applicable(refer to patient education folder for contact #) [] Refer to [facility] Booklet Call your doctor immediately for: * Fever > 100.5 * Heavy vaginal bleeding ( >1 pad per hour) * Severe persistent headache * Shortness of breath * Reddened, hot, painful area to leg or breast * Drainage or odor from incision. * Keep incision clean and dry at all times and follow doctor's instructions regarding bathing/showering - Follow up plan Follow up: KARLA HOWE MD [Primary Care Provider] - 3 Days
[2017-08-20] MEDS: PRENATAL VITAMIN PO SCH (10:20)
[2017-08-20] MEDS: NORMODYNE PO SCH (10:20)
[2017-08-20] MEDS: COLACE PO PRN (10:20)
[2017-08-20] MEDS: CELESTONE SOLUSPAN IM SCH (10:23)
[2017-08-20 12:49] VITALS: BP 126/78
--- NOTE | 2017-08-21 13:38 | Ultrasound Report ---
BIOPHYSICAL PROFILE: 08/18/17 09:11:00 CLINICAL: [facility] FINDINGS: The biophysical profile was scored as followin - breathing movements 2 - movements 2 - posture and tone 2 - Qualitative amniotic fluid volume 8 - TOTAL SCORE OF POSSIBLE 8 Heart Rate (bpm) = 160 IMPRESSION: Normal study
== END 2017-08-20 12:50 | disposition home or self-care (01) | DRG 781 ==
LOC: TRG 13:41 → LD 15:12 → OBSVTOIN 08-18 09:11
PROVIDERS: ADMIT Obstetrics & Gynecology; ATTEND Obstetrics & Gynecology
DX: O11.2 Pre-existing hypertension with pre-eclampsia, second trimester (principal); O34.211 Maternal care for low transverse scar from previous cesarean delivery; O99.352 Diseases of the nervous system complicating pregnancy, second trimester; G43.909 Migraine, unspecified, not intractable, without status migrainosus; O99.342 Other mental disorders complicating pregnancy, second trimester; F31.9 Bipolar disorder, unspecified; Z3A.26 26 weeks gestation of pregnancy; Z83.3 Family history of diabetes mellitus; Z82.49 Family history of ischemic heart disease and other diseases of the circulatory system; Z91.19 Patient's noncompliance with other medical treatment and regimen
CPT/HCPCS: 36415; 76819; 82043; 82565; 82570; 83615; 83735; 84156; 84450; 84460; 84550; 85027; 86900; 86901; G0378; J0702; J3475; J7120

== ENCOUNTER 2017-10-08 08:48 | Inpatient (IN) | payer MEDICAID ==
[2017-10-08] MEDS ORDERED: LACTATED RINGERS 500 ML IV ONE (09:15)
[2017-10-08] MEDS ORDERED: APRESOLINE IV ONE ×2 (10:10→12:00)
[2017-10-08] MEDS ORDERED: CELESTONE SOLUSPAN IM NR (10:17)
[2017-10-08] MEDS ORDERED: MAGNESIUM SULFATE 4GM/100ML 4 GM/100 ML BAG IV NR (10:18)
[2017-10-08] MEDS ORDERED: MAGNESIUM SULFATE 40GM/1000ML 40 GM/1,000 ML BAG IV SCH (11:00)
--- NOTE | 2017-10-08 11:15 | History and Physical Report ---
History of Present Illness Date of examination: 10/08/17 Date of admission: 10/08/17 09:15 Chief complaint: Chief complaint: fell at home. HPI: 32 year old presented to L&D at 33 weeks, 4 days gestation complaining of falling at home this morning in her kitchen. Patient states that when she awakened this morning she felt dizzy and had a headache; she also states she had visual disturbance (saw "stars"). Patient states she walked into her kitchen to get something to eat and she fell in the kitchen and hit her abdomen on the open refrigerator door. She also landed on her left wrist as she fell. She states she thinks she may have also hit her head but does not know. She states she does not think she lost consciousness and does not know how long she remained on the floor. She did not feel confused; she did not have chest pain, shortness of breath, or palpitations prior to or after falling. She states she still has a frontal headache and still has visual disturbance. She states her left wrist hurts and she is now also having abodominal pain. She denies vaginal bleeding or leaking of fluid. She reports active movement. She denies contractions. Patient has been receiving care at [facility] but no records are available here in L&D. She states she takes Labetalol 200 mg po BID for chronic hypertension and that she has also been told she has preeclampsia. She states she sees [facility]. Patient has had 3 previous vaginal deliveries and one LTCS (with her last delivery). Patient reports that at her last visit to [facility] she was told she has extra amniotic fluid. She also states she failed her first sugar test but passed her second sugar test at the office. History of present illness: See above. 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 denies: smoking, alcohol abuse, prescription drug abuse, IV drug use - Obstetrical History Expected Date of Delivery: 11/22/17 Actual Gestation: 33 Week(s) 4 Day(s) : 5 Para: 4 Hx # Term Pregnancies: 2 Number of Pregnancies: 3 Spontaneous Abortions: 0 Induced : 0 Number of Living Children: 4 Medications and Allergies Allergies Allergy/AdvReac Type Severity Reaction Status Date / Time No Known Allergies Allergy Verified 11/14/13 21:30 Home Medications Medication Instructions Recorded Confirmed Last Taken Type Pnv with Ca,No.72/Iron/FA 1 tab PO DAILY 11/14/13 10/08/17 10/07/17 21:00 History [ Plus Tablet] Labetalol [Normodyne TAB] 200 mg PO BID #60 tablet 08/20/17 10/08/17 10/07/17 21 :00 Rx Active Meds: Active Medications Betamethasone Acet/Betameth SodPhos (Celestone Soluspan) 12 mg IM ONCE NR Stop: 10/08/17 12:00 Magnesium Sulfate (Magnesium Sulfate 4gm/100ml) 4 gm in 100 mls @ 300 mls/hr IV ONCE NR Stop: 10/08/17 11:18 Magnesium Sulfate (Magnesium Sulfate 40gm/1000ml) 40 gm in 1,000 mls @ 50 mls/ hr IV DIRECT NOELLE PRN Reason: 2 GM/HR Review of Systems All systems: negative (headache, visual changes, dizziness, abdominal pain) - Vital Signs Vital signs: Vital Signs Pulse Pulse Ox 100 H 99 10/08/17 09:15 10/08/17 09:15 Temp Pulse Resp BP Pulse Ox 98.6 F 105 H 20 156/97 100 10/08/17 09:17 10/08/17 11:06 10/08/17 09:17 10/08/17 11:06 10/08/17 10:34 - Physical Exam Cardiovascular: Regular rate, Normal S1, Normal S2 Lungs: Positive: Clear to auscultation Abdomen: Positive: normal appearance, soft. Negative: distention, tenderness, guarding, rigidity Genitourinary (Female): Positive: other (genital exam deferred until US for placental location is available) Uterus: Positive: enlarged. Negative: tender Extremities: Positive: edema. Negative: tenderness - Obstetrical FHR: category 1 Uterine Contraction Monitor Mode: External Uterine Contraction Pattern: Irregular Uterine Contraction Intensity: Mild Results Result Diagrams: 10/08/17 10:53 All other labs normal. Assessment and Plan A: at 33 weeks, 4 days gestation. Severe preeclampsia superimposed on chronic hypertension. Fall at home. Abdominal pain. Previous low transverse section. P: Admit patient. IV hydralazine for elevated blood pressure. Magnesium sulfate per protocol for prevention of seizures. US for placental integrity and location and BPP. Preeclamptic labs stat. Continuous EFM. Consulted with Dr. Wei regarding this patient due to severe preeclampsia, fall at home, abdominal pain, previous section, and headache with dizziness and visual change. Dr. Wei to assume care of this patient for remainder of her stay.
[2017-10-08 11:17] LABS: Urine Drugs of Abuse Note Disclamer
[2017-10-08 11:23] LABS: Basophils % (Auto) 0.1 % (0.0-1.8); Eosinophils % (Auto) 1.1 % (0.0-4.3); Hematocrit 28.8 % (30.3-42.9); Hemoglobin 9.8 gm/dl (10.1-14.3); Mean Corpuscular HGB Conc 34 % (30-34); Mean Corpuscular Hemoglobin 27 pg (28-32); Mean Corpuscular Volume 80 fl (79-97); Platelet Count 248 K/mm3 (140-440); Red Blood Count 3.59 M/mm3 (3.65-5.03); Red Cell Distribution Width 14.1 % (13.2-15.2); White Blood Count 7.3 K/mm3 (4.5-11.0)
[2017-10-08 11:35] LABS: Bacteria,Urine 1+ /HPF (Negative); Bilirubin,Urine NEG (Negative); Blood,Urine SM (Negative); Ketones,Urine NEG (Negative); Leukocyte Esterase,Urine TR (Negative); Nitrite,Urine NEG (Negative); Protein,Urine <15 mg/dL mg/dL (Negative); Urobilinogen,Urine < 2.0 mg/dL (<2.0)
[2017-10-08 11:43] LABS: Alanine Aminotransferase 6 units/L (7-56); Albumin/Globulin Ratio 0.9 %; Alkaline Phosphatase 72 units/L (35-129); Anion Gap 20 mmol/L; BUN/Creatinine Ratio 10; Blood Urea Nitrogen 3 mg/dL (7-17); Calcium 8.7 mg/dL (8.4-10.2); Carbon Dioxide 20 mmol/L (22-30); Glucose 83 mg/dL (65-100); Potassium 3.6 mmol/L (3.6-5.0); Sodium 141 mmol/L (137-145); Total Protein 6.2 g/dL (6.3-8.2)
--- NOTE | 2017-10-08 11:56 | Ultrasound Report ---
ULTRASOUND BIOPHYSICAL PROFILE: History: well being, maternal fall Technique: Transabdominal ultrasound with Doppler interrogation. 2 - breathing movements 2 - movements 2 - posture and tone 2 - Qualitative amniotic fluid volume 8 - TOTAL SCORE OF POSSIBLE 8 Heart Rate (bpm) 157
--- NOTE | 2017-10-08 11:57 | Ultrasound Report ---
ULTRASOUND OB LIMITED History: well being, maternal fall, abdominal pain Technique: Transabdominal ultrasound with Doppler interrogation. Gestation: Single Position: Transverse, head to maternal right Amniotic Fluid: Normal YOVANI = 18.1 cm Placenta: Posterior Placental Grade: 0 Heart Rate: 141 BPM Comment: No evidence for abruption.
--- NOTE | 2017-10-08 13:48 | Cat Scan Report ---
CT HEAD WITHOUT CONTRAST: HISTORY: Headache. TECHNIQUE: Sequential 2.5mm CT images. COMPARISON: none. FINDINGS: Cerebral Parenchyma: Within normal limits. Cerebellum: Within normal limits. Brainstem: Within normal limits. Ventricles: Normal. Sella: Normal. Extra-axial spaces: Normal. Basal Cisterns: Normal. Intracranial Hemorrhage: None. Midline Shift: None. Calvarium: Normal. Sinuses: Normal. Mastoid Air Cells: Normal. Visualized Orbits: Normal. IMPRESSION: Cranial CT scan within normal limits.
[2017-10-08] MEDS ORDERED: SUBLIMAZE ONE (16:30)
--- NOTE | 2017-10-08 16:31 | Event Note ---
Date: 10/08/17 Pt having chest pains, SOB and nelsy q 1 min despite IV Magnesium sulfate. BP's still elevated 170/94; P 134; Pulse ox 98% Will proceed with a Repeat C Section ANA MARIA.
[2017-10-08] MEDS ORDERED: ANCEF/STERILE WATER 2 GM/20 ML 2 GM/20 ML SYRINGE IV ONE (16:35)
[2017-10-08] MEDS ORDERED: PITOCin/NS 20 UNIT/1000ML DRIP 20,000 MILLIUNITS/1,000 ML BAG IV ONE (16:35)
[2017-10-08] MEDS ORDERED: BICITRA ONE (16:35)
[2017-10-08] MEDS ORDERED: REGLAN ONE (16:35)
[2017-10-08] MEDS ORDERED: PEPCID IV ONE ×2 (16:35→17:00)
[2017-10-08] MEDS ORDERED: REGLAN IV ONE (16:46)
[2017-10-08] MEDS ORDERED: PITOCin/NS 20 UNIT/1000ML DRIP 20 UNITS/1,000 ML BAG IV SCH ×2 (17:00→19:00)
[2017-10-08] MEDS ORDERED: LACTATED RINGERS 1,000 ML IV SCH (17:00)
[2017-10-08] MEDS ORDERED: ANCEF/STERILE WATER 2 GM/20 ML 2 GM/20 ML SYRINGE IV NR (17:00)
[2017-10-08] MEDS ORDERED: BICITRA PO ONE (17:00)
[2017-10-08] MEDS ORDERED: ZOFRAN ONE (17:11)
[2017-10-08] MEDS ORDERED: MORPHINE ONE (17:11)
[2017-10-08] MEDS ORDERED: NEO SYNEPHRINE/NS Syringe(OR USE) IV ONE (17:30)
[2017-10-08] MEDS ORDERED: XYLOCAINE MPF 2% ONE ×2 (17:30→17:37)
[2017-10-08] MEDS ORDERED: VERSED ONE (17:43)
--- NOTE | 2017-10-08 18:23 | Operative Report ---
Operative Report Operative Report: Date of procedure: 10/08/2017 Pre-operative diagnosis: 1. Intrauterine at 33-4/7 weeks in labor 2. Chronic hypertension with superimposed preeclampsia 3. Previous C- section 4. Transverse presentation Post-operative diagnosis: Same Procedure name(s): Repeat low transverse section Surgeon: Chino Wei MD Manager Employee Relations: None Anesthesia: Spinal anesthesia by Dr. Carpenter EBL: 800 mL Findings: A 2622 g female Apgars 8 at 1 minute and 8 at 5 minutes. Clear amniotic fluid. Normal uterus. Normal tubes and ovaries bilaterally Procedure: After the patient was prepped and draped in usual sterile fashion, and after satisfactory level of epidural anesthesia was obtained, the skin knife was used to make a transverse skin incision through the previous skin scar. The incision was excised down to layer of the fascia, which was nicked in the midline and extended laterally using the Bovie cautery. The rectus muscles were dissected off the rectus fascia both superiorly and inferiorly. The rectus bellies in the midline, and the peritoneum was entered under direct visualization. The peritoneal incision was extended superiorly and inferiorly. A bladder flap was created and the bladder blade was then placed. The uterus was scored in a curvilinear linear fashion, entered in the midline revealing clear amniotic fluid. The infant's head was delivered from a transverse position onto the surgical field, and the oropharynx and nasopharynx were bulb suctioned. The rest of the infant's body was delivered, cord was doubly clamped and cut and the was handed to the waiting respiratory team. Cord blood was then obtained. The placenta was manually removed from the uterus, and the uterus removed from its normal anatomical position. After gentle uterine lavage, the incision was inspected and found to be without extensions. It was then closed in 2 layers using 0 Vicryl suture in a running interlocking fashion, the second layer imbricating the first. After good hemostasis was achieved, copious amounts or irrigation was performed, and the gutters were suctioned free of blood and blood clots. The uterus was then returned to its normal anatomical position, and after excellent hemostasis assured, the peritoneum was re-approximated using 3-0 Vicryl suture in a running interlocking fashion, and then the rectus muscles were re-approximated using 3-0 Vicryl suture in a [id number] configuration. The fascia was then re-approximated using 0 Vicryl suture in running interlocking fashion. The subcutaneous layer was made hemostatic using Bovie cautery, and the skin edges re-approximated using 4-0 Vicryl suture in a sub-cuticular fashion. Patient tolerated the procedure well was transported to recovery in stable condition.
[2017-10-08] MEDS ORDERED: NARCAN 0.4 MG/1 ML IV PRN ×2 (18:24→18:25)
[2017-10-08] MEDS ORDERED: ZOFRAN IV PRN (18:24)
--- NOTE | 2017-10-08 18:24 | Anesthesia Consultation ---
Anesthesia Consult and Med Hx Date of service: 10/08/17 - Airway Anesthetic Teeth Evaluation: Good ROM Head & Neck: Adequate Mental/Hyoid Distance: Adequate Mallampati Class: Class II Intubation Access Assessment: Probably Good - Pulmonary Exam CTA: Yes - Cardiac Exam Cardiac Exam: RRR - Pre-Operative Health Status ASA Pre-Surgery Classification: ASA3, Emergency Proposed Anesthetic Plan: Epidural, Spinal - Pulmonary Hx Asthma: No COPD: No Hx Pneumonia: No - Cardiovascular System Hx Hypertension: Yes (CHRONIC HTN WITH SUPERIMPOSED PRE-ECLAMPSIA) - Central Nervous System Hx Seizures: No Hx Psychiatric Problems: No - Endocrine Hx Renal Disease: No Hx End Stage Renal Disease: No Hx Hypothyroidism: No Hx Hyperthyroidism: No - Hematic Hx Anemia: Yes Hx Sickle Cell Disease: No - Other Systems Hx Alcohol Use: No Hx Obesity: Yes - Additional Comments Anesthesia Medical History Comments: IUP, PREVIOUS
--- NOTE | 2017-10-08 18:24 | Anesthesia Day of Surgery ---
Anesthesia Day of Surgery - Day of Surgery Patient Examined: Yes Patient H&P Reviewed: Yes Patient is NPO: Yes Beta Blockers: Yes
--- NOTE | 2017-10-08 18:24 | Post Anesthesia Evaluation ---
- Post Anesthesia Evaluation Patient Participated: Yes Airway Patent: Yes Stable Respiratory Function: Yes Nausea/Vomiting: No Temp > 96.8F: Yes Pain Manageable: Yes Adequeate Hydration: Yes Anesthesia Complications: No Block Receding Appropriately: Not Applicable Patient on Ventilator: No
[2017-10-08] MEDS ORDERED: MILK OF MAGNESIA PO PRN (18:25)
[2017-10-08] MEDS ORDERED: MYLICON PO PRN (18:25)
[2017-10-08] MEDS ORDERED: SENOKOT PO PRN (18:25)
[2017-10-08] MEDS ORDERED: DILAUDID IV PRN (18:25)
[2017-10-08] MEDS ORDERED: TUCKS PAD TP PRN (18:25)
[2017-10-08] MEDS ORDERED: PHENERGAN PR PRN (18:25)
[2017-10-08] MEDS ORDERED: NORCO 5/325 PO PRN (18:25)
[2017-10-08] MEDS ORDERED: TYLENOL PO PRN (18:25)
[2017-10-08] MEDS ORDERED: BENADRYL IV PRN (18:26)
[2017-10-08] MEDS ORDERED: SODIUM CHLORIDE FLUSH SYRINGE 10 ML IV NR ×2 (19:00)
[2017-10-08] MEDS ORDERED: ANCEF/NS 1 GM/50 ML 1 GM/50 ML BAG IV SCH (19:00)
[2017-10-08] MEDS ORDERED: D5LR 1,000 ML IV SCH (19:00)
[2017-10-08] MEDS: TORADOL IV PRN (20:19)
[2017-10-09] MEDS: ceFAZolin 1 GM in NACL 0.9% 20 ML IV SCH ×2 (00:45→11:01)
[2017-10-09] MEDS ORDERED: ANCEF/NS 1 GM/50 ML 1 GM/50 ML BAG IV SCH (01:00)
[2017-10-09] MEDS: TORADOL IV PRN (02:30)
[2017-10-09] MEDS: FEOSOL PO SCH (10:05)
[2017-10-09] MEDS: PRENATAL VITAMIN PO SCH (10:05)
[2017-10-09] MEDS: NORMODYNE PO SCH ×2 (10:05→21:31)
--- NOTE | 2017-10-09 11:48 | Progress Note ---
Assessment and Plan A: /postop day 1 S/P repeat LTCS. Anemia. Preeclampsia. P: Continue magnesium sulfate. Iron supplementation when eating normally. Subjective - Subjective Date of service: 10/09/17 Principal diagnosis: /postop day 1 S/P repeat LTCS Interval history: day 1 S/P repeat LTCS. Patient feels well. She is still receiving magnesium sulfate. She denies headache, visual disturbance, cough, shortness of breath, chest pain, nausea or vomiting, abdominal pain, or leg pain. She reports small amount of lochia. Patient reports: appetite normal, pain well controlled, flatus : doing well, in NICU Objective - Vital Signs Latest vital signs: Vital Signs Temp Pulse Resp BP BP BP Pulse Ox 10/09/17 10:05 108 H 139/94 10/09/17 10:00 99 F 108 H 18 139/94 97 10/09/17 08:00 98.9 F 97 H 18 138/93 98 10/09/17 05:49 98.5 F 90 18 141/95 10/09/17 04:05 98.2 F 94 H 18 143/94 10/09/17 02:30 16 10/09/17 02:00 97.8 F 90 20 145/100 10/09/17 00:05 98.5 F 86 18 140/89 10/08/17 22:10 98.7 F 88 16 141/86 10/08/17 20:57 98.5 F 84 18 143/97 10/08/17 20:49 16 10/08/17 20:19 16 10/08/17 19:21 99 H 23 156/101 100 10/08/17 19:20 97.4 F L 102 H 19 156/101 100 10/08/17 19:15 102 H 20 150/104 100 10/08/17 19:10 109 H 24 146/101 100 10/08/17 19:05 107 H 21 144/92 100 10/08/17 19:01 118 H 32 H 135/87 100 10/08/17 18:55 113 H 24 135/87 99 10/08/17 18:50 111 H 22 133/84 100 10/08/17 18:45 111 H 18 126/83 100 10/08/17 18:40 113 H 19 126/77 100 10/08/17 18:35 106 H 18 120/72 99 10/08/17 18:30 106 H 19 121/66 100 10/08/17 18:25 108 H 15 104/65 97 10/08/17 18:20 108 H 20 100/59 99 10/08/17 18:16 110 H 15 97 10/08/17 16:57 123 H 165/99 10/08/17 16:54 129 H 167/108 10/08/17 16:44 131 H 98 10/08/17 16:39 134 H 98 10/08/17 16:34 133 H 98 10/08/17 16:29 122 H 97 10/08/17 16:27 125 H 170/94 10/08/17 16:24 134 H 98 10/08/17 16:19 132 H 99 10/08/17 16:12 122 H 135/75 10/08/17 15:57 120 H 138/88 10/08/17 15:42 115 H 139/84 10/08/17 13:11 122 H 99 10/08/17 13:06 125 H 98 10/08/17 13:01 126 H 129/76 99 10/08/17 12:56 116 H 99 10/08/17 12:51 119 H 99 10/08/17 12:46 125 H 99 10/08/17 12:44 118 H 152/75 10/08/17 12:40 118 H 131/68 10/08/17 12:34 116 H 138/68 10/08/17 12:29 121 H 148/83 10/08/17 12:23 125 H 139/73 10/08/17 12:18 123 H 132/72 10/08/17 12:14 125 H 136/74 10/08/17 12:08 120 H 136/71 10/08/17 12:03 123 H 141/75 10/08/17 12:00 120 H 135/73 10/08/17 11:55 137 H 183/99 10/08/17 11:50 122 H 133/89 Intake and Output 10/08/17 10/09/17 10/09/17 23:59 07:59 15:59 Intake Total 1200 Output Total 575 1400 Balance 625 -1400 Intake: IV 1200 Output: Urine 575 1400 Indwelling Catheter 1400 Other: Total, Output Amount 1400 - Exam Cardiovascular: Present: Regular rate, Normal S1, Normal S2 Lungs: Present: Clear to auscultation Abdomen: Present: normal appearance, soft, normal bowel sounds. Absent: tenderness, guarding, rigidity Uterus: Present: normal, firm, fundal height below umbilicus. Absent: bogginess , tenderness Extremities: Present: edema (mild pedal edema bilaterally). Absent: tenderness Incision: Present: normal, dry, intact, dressed - Labs Labs: Abnormal lab results 10/08/17 10/09/17 10/09/17 Range/Units 12:51 00:21 05:48 Magnesium 3.90 H 4.50 H (1.7-2.3) mg/dL Lactate Dehydrogenase 228 H (91-180) units/L
[2017-10-09] MEDS: MOTRIN PO PRN ×2 (14:12→21:30)
[2017-10-09] MEDS: PERCOCET 5/325 PO PRN ×2 (14:13→21:30)
[2017-10-09 14:15] LABS: Hemoglobin 9.6 gm/dl (10.1-14.3)
[2017-10-09 14:52] LABS: HIV-1 Antigen p24 Non React (Non React); HIVR-1/2 Ab Non React (Non React)
--- NOTE | 2017-10-09 16:18 | Event Note ---
Date: 10/09/17 Labs show rubella non-immune. Patient will need rubella vaccination on day of hospital discharge.
[2017-10-09] MEDS ORDERED: BOOSTRIX IM ONE (18:28)
[2017-10-09] MEDS ORDERED: M-M-R II VACCINE SUB-Q ONE (18:28)
[2017-10-10] MEDS: PERCOCET 5/325 PO PRN ×2 (05:21→17:56)
[2017-10-10] MEDS: MOTRIN PO PRN ×2 (05:21→12:11)
[2017-10-10] MEDS ORDERED: BOOSTRIX IM ONE (06:00)
[2017-10-10] MEDS: NORMODYNE PO SCH ×3 (10:37→22:08)
[2017-10-10] MEDS: FEOSOL PO SCH (10:38)
[2017-10-10] MEDS: PRENATAL VITAMIN PO SCH (10:38)
--- NOTE | 2017-10-10 12:50 | Progress Note ---
Subjective Date of service: 10/10/17 Principal diagnosis: /postop day 1 S/P repeat LTCS Interval history: 2nd POD after Patient is in the bed, comfortable. Pain is well controlled with pain meds. Ambulated well. No residual neurological deficit. No anesthesia complications Objective - Constitutional Vitals: Vital Signs - 12hr 10/10/17 10/10/17 10/10/17 05:50 08:05 10:37 Temperature 97.9 F 98.6 F Pulse Rate 93 H 94 H 85 Respiratory 20 20 Rate Blood Pressure 145/98 138/86 Blood Pressure 127/72 145/98 [Left] - Labs CBC & Chem 7: 10/09/17 13:53 10/08/17 10:53 Labs: Abnormal lab results 10/09/17 10/09/17 10/09/17 Range/Units 13:53 13:53 19:33 Hgb 9.6 L (10.1-14.3) gm/dl Hct 29.0 L (30.3-42.9) % Magnesium 3.80 H 3.00 H (1.7-2.3) mg/dL
--- NOTE | 2017-10-10 18:10 | Progress Note ---
Assessment and Plan A: POD 2 - stable Chronic HTN with superimposed pre-eclampsia Anemia - asymptomatic P: Continue current management Anticipate discharge tomorrow Subjective - Subjective Date of service: 10/10/17 Principal diagnosis: /postop day 2 S/P repeat LTCS Interval history: Magnesium therapy completed 10/09/17. Patient denies headache, vision changes, epigastric pain or nausea and vomiting. Patient reports: appetite normal, voiding normally, pain well controlled, flatus , ambulating normally : doing well, in NICU Objective - Vital Signs Latest vital signs: Vital Signs Temp Pulse Resp BP BP Pulse Ox 10/10/17 17:56 20 10/10/17 17:05 98.8 F 107 H 20 137/87 98 10/10/17 12:50 98.7 F 89 20 142/85 10/10/17 10:37 85 138/86 10/10/17 08:05 98.6 F 94 H 20 145/98 145/98 10/10/17 05:50 97.9 F 93 H 20 127/72 10/10/17 00:40 98.5 F 89 20 111/60 10/09/17 21:34 98 H 146/82 10/09/17 21:31 98 H 146/82 Intake and Output 10/10/17 10/10/17 10/10/17 07:59 15:59 23:59 Intake Total 240 600 Output Total 500 Balance 240 100 Intake: Oral 600 Intake, Free Water 240 Output: Urine 500 Void 500 Other: Total, Intake Amount 240 Total, Output Amount 500 # Voids Void 1 1 - Exam Breasts: Present: deferred Cardiovascular: Present: Regular rate, Normal S1, Normal S2 Lungs: Present: Clear to auscultation, Normal air movement Abdomen: Present: normal appearance, soft Vulva: both: normal Uterus: Present: normal, firm, fundal height below umbilicus. Absent: bogginess Extremities: Present: edema (1+ BLE). Absent: tenderness Deep Tendon Reflex Grade: Normal +2 Incision: Present: normal, dry, intact - Labs Labs: Abnormal lab results 10/09/17 Range/Units 19:33 Magnesium 3.00 H (1.7-2.3) mg/dL
[2017-10-11] MEDS: PERCOCET 5/325 PO PRN ×3 (02:54→17:05)
[2017-10-11] MEDS: MOTRIN PO PRN ×2 (08:41→17:04)
--- NOTE | 2017-10-11 09:19 | Progress Note ---
Assessment and Plan A: POD # 3 stable P; Discharge home today. Subjective - Subjective Date of service: 10/11/17 Principal diagnosis: /postop day 3 S/P repeat LTCS Patient reports: appetite normal [place]: in NICU Objective - Vital Signs Latest vital signs: Vital Signs Temp Pulse Resp BP BP Pulse Ox 10/11/17 03:54 16 10/11/17 02:54 16 10/11/17 00:25 98.4 F 100 H 20 117/75 97 10/10/17 22:08 90 140/85 10/10/17 18:56 18 10/10/17 17:56 20 10/10/17 17:05 98.8 F 107 H 20 137/87 98 10/10/17 12:50 98.7 F 89 20 142/85 10/10/17 10:37 85 138/86 Intake and Output 10/10/17 10/11/17 10/11/17 22:59 06:59 14:59 Intake Total 480 Balance 480 Intake: Oral 480 Other: Total, Intake Amount 240 # Voids Void 1 - Exam Breasts: Present: deferred, mass Lungs: Present: Clear to auscultation Abdomen: Present: soft Vulva: both: normal Uterus: Present: fundal height below umbilicus Extremities: Present: normal Incision: Present: intact
--- NOTE | 2017-10-11 09:21 | Discharge Summary ---
Providers - Providers Date of Admission: 10/08/17 09:15 Date of discharge: 10/11/17 Attending physician: KARLA HOWE MD Primary care physician: KARLA HOWE MD Hospitalization Reason for admission: active labor, IUP - Delivery: Procedure: repeat low transverse Episiotomy: none Laceration: none Incision: intact Other procedures: none complications: none Discharge diagnosis: IUP at term delivered baby: female Condition at discharge: Good Disposition: DC-01 TO HOME OR SELFCARE Plan - Discharge Medications Prescriptions: Ferrous Sulfate [Feosol 325 MG tab] 325 mg PO BID #60 tablet HYDROcodone/APAP 5-325 [[place] 5/325] 1 each PO Q6HR PRN #30 tablet PRN Reason: Pain Ibuprofen [Motrin] 800 mg PO Q8HR PRN #30 tablet PRN Reason: Moder Pain Unrelieved By [place] Labetalol [Normodyne TAB] 200 mg PO BID #60 tablet Vit Calc,Iron,Folic [ Vitamins] 1 each PO DAILY #30 tablet - Provider Discharge Summary Activity: routine, no sex for 6 weeks, no strenuous exercise Diet: routine Instructions: routine Additional instructions: [] Smoking cessation referral if applicable(refer to patient education folder for contact #) [] Refer to [facility]'s [facility] Booklet Call your doctor immediately for: * Fever > 100.5 * Heavy vaginal bleeding ( >1 pad per hour) * Severe persistent headache * Shortness of breath * Reddened, hot, painful area to leg or breast * Drainage or odor from incision. * Keep incision clean and dry at all times and follow doctor's instructions regarding bathing/showering - Follow up plan Follow up: KARLA HOWE MD [Primary Care Provider] - 14 Days
[2017-10-11] MEDS: NORMODYNE PO SCH (10:02)
[2017-10-11] MEDS: FEOSOL PO SCH (10:02)
[2017-10-11] MEDS: PRENATAL VITAMIN PO SCH (10:02)
[2017-10-11] MEDS ORDERED: M-M-R II VACCINE SUB-Q ONE (12:17)
[2017-10-11 19:00] VITALS: BP 140/88
== END 2017-10-11 18:15 | disposition home or self-care (01) | DRG 765 ==
LOC: TRG 08:48 → LD 09:15 → OBSVTOIN 09:15 → OB 19:51
PROVIDERS: ADMIT Obstetrics & Gynecology; ATTEND Obstetrics & Gynecology
PROC: 10D00Z1 Extraction of Products of Conception, Low, Open Approach (ICD-10-PCS; principal; 2017-10-08)
PROC: 3E0234Z Introduction of Serum, Toxoid and Vaccine into Muscle, Percutaneous Approach (ICD-10-PCS; 2017-10-09)
DX: O34.211 Maternal care for low transverse scar from previous cesarean delivery (principal); O11.4 Pre-existing hypertension with pre-eclampsia, complicating childbirth; O10.92 Unspecified pre-existing hypertension complicating childbirth; O99.02 Anemia complicating childbirth; D64.9 Anemia, unspecified; O99.214 Obesity complicating childbirth; E66.9 Obesity, unspecified; Z3A.33 33 weeks gestation of pregnancy; Z37.0 Single live birth; Z83.3 Family history of diabetes mellitus; Z82.3 Family history of stroke; Z82.49 Family history of ischemic heart disease and other diseases of the circulatory system; Z68.38 Body mass index [BMI] 38.0-38.9, adult; Z23 Encounter for immunization
CPT/HCPCS: 36415; 70450; 76815; 76819; 80053; 80307; 81001; 83615; 83735; 85014; 85018; 85025; 86592; 86706; 86762; 86850; 86900; 86901; 87806; 88307; 90471; 90472; 90707; 90715; 93005; 93010; 99211; G0463; J0360; J0690; J0702; J1885; J2250; J2270; J2370; J2405; J2590; J2765; J3010; J3475; J7120; J7121

== ENCOUNTER 2017-10-22 23:14 | Inpatient (IN) | payer MEDICAID ==
[2017-10-22] MEDS ORDERED: PROVENTIL IH ONE ×2 (23:38→23:51)
[2017-10-22] MEDS ORDERED: ATROVENT IH ONE (23:38)
--- NOTE | 2017-10-22 23:44 | Emergency Department Report ---
HPI - General Chief Complaint: Dyspnea/Respdistress Time Seen by Provider: 10/22/17 23:34 - HPI HPI: This is a 32-year-old female presents to the emergency department via EMS from home with a complaint of shortness of breath and a mixed dry and productive cough. The cough has been going on for a couple of days and the patient thought that she was getting over a cold or upper respiratory infection. However this evening she started having some trouble breathing. She did not receive anything for her symptoms or take anything prior to presentation. She presents with a pulse ox of about 90% on room air. She has a past medical history only significant for hypertension. She denies any tobacco or illicit drug use. Her primary care doctor is a doctor Ana. No recent travel, recent surgeries, or any sick contacts at home. She denies any fever, chest pain, back pain, nausea, vomiting or diaphoresis. ED Past Medical Hx - Past Medical History Previous Medical History?: Yes Hx Hypertension: Yes (CHRONIC HTN WITH SUPERIMPOSED PRE-ECLAMPSIA) Hx Congestive Heart Failure: No Hx Diabetes: No Hx Deep Vein Thrombosis: No Hx Renal Disease: No Hx Sickle Cell Disease: No Hx Seizures: No Hx Asthma: No Hx COPD: No Hx HIV: No Additional medical history: - Surgical History Past Surgical History?: Yes Additional Surgical History: c section - Social History Smoking Status: Never Smoker Substance Use Type: Alcohol - Medications Home Medications: Home Medications Medication Instructions Recorded Confirmed Last Taken Type Pnv with Ca,No.72/Iron/FA 1 tab PO DAILY 11/14/13 10/08/17 10/07/17 21:00 History [ Plus Tablet] Ferrous Sulfate [Feosol 325 MG tab] 325 mg PO BID #60 tablet 10/08/17 Unknown Rx HYDROcodone/APAP 5-325 [[place] 1 each PO Q6HR PRN #30 tablet 10/08/17 Unknown Rx 5/325] Ibuprofen [Motrin] 800 mg PO Q8HR PRN #30 tablet 10/08/17 Unknown Rx Labetalol [Normodyne TAB] 200 mg PO BID #60 tablet 10/08/17 Unknown Rx Vit Calc,Iron,Folic 1 each PO DAILY #30 tablet 10/08/17 Unknown Rx [ Vitamins] ED Review of Systems ROS: Stated complaint: DIFFICULTY IN BREATHING Other details as noted in HPI Comment: All other systems reviewed and negative Constitutional: denies: chills, fever Eyes: denies: eye pain, eye discharge, vision change ENT: denies: ear pain, throat pain Respiratory: cough, shortness of breath, wheezing Cardiovascular: denies: chest pain, edema Gastrointestinal: denies: abdominal pain, nausea, diarrhea Genitourinary: denies: urgency, dysuria, discharge Musculoskeletal: denies: back pain, joint swelling, arthralgia Skin: denies: rash, lesions Neurological: denies: headache, weakness, paresthesias Physical Exam - Physical Exam Vital Signs: Vital Signs 10/22/17 10/22/17 23:34 23:39 Temperature 98.8 F Pulse Rate 119 H 119 H Respiratory 24 Rate Blood Pressure 176/145 O2 Sat by Pulse 96 Oximetry Physical Exam: GENERAL: The patient is well-developed well-nourished. HENT: Normocephalic. Atraumatic. Patient has moist mucous membranes. EYES: Extraocular motions are intact. Pupils equal reactive to light bilaterally. NECK: Supple. Trachea is midline. CHEST/LUNGS: There are some coarse breath sounds heard throughout the chest. There is some rhonchi heard bilaterally. There is tachypnea and accessory muscle use. She has a hacking cough heard. There is some conversational dyspnea. There is respiratory distress noted. HEART/CARDIOVASCULAR: Regular. There is mild tachycardia. There is no murmur. ABDOMEN: Abdomen is soft, nontender. Patient has normal bowel sounds. There is no abdominal distention. SKIN: Skin is warm and dry. NEURO: The patient is awake, alert, and oriented. The patient is cooperative. The patient has no focal neurologic deficits. The patient has normal speech. MUSCULOSKELETAL: There is no tenderness or deformity. There is no limitation range of motion. There is no evidence of acute injury. ED Course Vital Signs 10/22/17 10/22/17 23:34 23:39 Temperature 98.8 F Pulse Rate 119 H 119 H Respiratory 24 Rate Blood Pressure 176/145 O2 Sat by Pulse 96 Oximetry ED Medical Decision Making - Lab Data Result diagrams: 10/22/17 23:51 10/22/17 23:51 - EKG Data -: EKG Interpreted by Wi EKG shows normal: sinus rhythm, axis, intervals, QRS complexes, ST-T waves ( there are some lateral T-wave inversions) Rate: tachycardia (119 bpm) - EKG Data Interpretation: other (sinus tachycardia, normal axis, normal intervals, T-wave inversions to the lateral leads. No ST elevation ID) - Radiology Data Radiology results: report reviewed, image reviewed interpreted by me: Chest x-ray shows bilateral infiltrates with right greater than left, especially in the perihilar region. There also appears to be some vascular congestion. EXAM: CTA Chest w Contrast CLINICAL INDICATIONS: SOB, ELEV D-DIMER FINDINGS: Contrast-enhanced CT angiography of the chest was performed and data was reformatted into the sagittal and coronal planes. These images demonstrate no CT evidence of pulmonary thromboembolic disease. There is no aortic dissection. There is extensive bilateral airspace disease affecting all lobes of both lungs which could represent pulmonary edema or pneumonitis. There are small bilateral pleural effusions. There is no pericardial effusion. In the upper abdomen the adrenal glands are within normal limits. The visualized portion of the liver and spleen are unremarkable. IMPRESSION: NO CT EVIDENCE OF PULMONARY THROMBOEMBOLIC DISEASE EXTENSIVE BILATERAL AIRSPACE DISEASE AFFECTING ALL LOBES OF BOTH LUNGS WHICH COULD REPRESENT PULMONARY EDEMA OR EXTENSIVE PNEUMONITIS SMALL BILATERAL PLEURAL EFFUSIONS Transcribed By: TRIP Dictated By: CARSON ALCANTAR MD Electronically Authenticated By: CARSON ALCANTAR MD Signed Date/Time: 10/22/172153 - Medical Decision Making This patient presents with some acute shortness of breath and a few days of a cough. She has some hypoxia. She has coarse breath sounds and some rhonchi. X -ray shows infiltrates and some fluid. She has a BNP of almost 3000. Elevated d-dimer greater than 1000. CT angiography was done that does not show any pulmonary blows them but shows diffuse pneumonitis, infiltrates and possible pleural effusions. The patient presented with some respiratory distress but after getting supplemental oxygen, breathing treatments and steroids, she is feeling improved and no longer appears in distress. However she still will require admission and further evaluation. She has gotten Lasix for diuresis, antibiotics and blood cultures have been sent. She has been accepted for admission by the hospitalist, Dr. Laguna. - Differential Diagnosis pneumonia, CHF, PE, bronchitis Critical Care Time: No Critical care attestation.: If time is entered above; I have spent that time in minutes in the direct care of this critically ill patient, excluding procedure time. ED Disposition Clinical Impression: Hypertension Qualifiers: Hypertension type: essential hypertension Qualified Code(s): I10 - Essential ( primary) hypertension CHF (congestive heart failure) Qualifiers: Congestive heart failure type: unspecified congestive heart failure type Congestive heart failure chronicity: acute Qualified Code(s): I50.9 - Heart failure, unspecified Pneumonia Qualifiers: Pneumonia type: due to unspecified organism Laterality: bilateral Lung location : unspecified part of lung Qualified Code(s): J18.9 - Pneumonia, unspecified organism Disposition: 09 OP ADMIT IP TO THIS HOSP Is pt being admited?: Yes Condition: Fair Time of Disposition: 04:41
[2017-10-23] MEDS ORDERED: ROBITUSSIN AC PO ONE (00:09)
[2017-10-23 00:12] LABS: Basophils % (Auto) 0.3 % (0.0-1.8); Eosinophils % (Auto) 2.2 % (0.0-4.3); Hematocrit 38.7 % (30.3-42.9); Hemoglobin 12.1 gm/dl (10.1-14.3); Mean Corpuscular HGB Conc 31 % (30-34); Mean Corpuscular Hemoglobin 26 pg (28-32); Mean Corpuscular Volume 84 fl (79-97); Platelet Count 371 K/mm3 (140-440); Red Blood Count 4.61 M/mm3 (3.65-5.03); Red Cell Distribution Width 17.2 % (13.2-15.2); White Blood Count 10.1 K/mm3 (4.5-11.0)
[2017-10-23] MEDS ORDERED: ROBITUSSIN ONE (00:14)
[2017-10-23 00:27] LABS: Anion Gap 19 mmol/L; BUN/Creatinine Ratio 17; Blood Urea Nitrogen 15 mg/dL (7-17); Calcium 8.4 mg/dL (8.4-10.2); Carbon Dioxide 18 mmol/L (22-30); Chloride 108.1 mmol/L (98-107); Glucose 96 mg/dL (65-100); Potassium 4.4 mmol/L (3.6-5.0); Sodium 141 mmol/L (137-145)
[2017-10-23 00:34] LABS: ISTAT Base Excess -7; ISTAT HCO3 17.9; ISTAT PCO2 30.5 (35-45); ISTAT PH 7.377 (7.35-7.45); ISTAT PO2 67 (80-105); ISTAT SO2 93; ISTAT TCO2 19
[2017-10-23] MEDS ORDERED: NACL ONE (00:56)
--- NOTE | 2017-10-23 01:58 | Cat Scan Report ---
FINAL REPORT EXAM: CTA Chest w Contrast CLINICAL INDICATIONS: SOB, ELEV D-DIMER FINDINGS: Contrast-enhanced CT angiography of the chest was performed and data was reformatted into the sagittal and coronal planes. These images demonstrate no CT evidence of pulmonary thromboembolic disease. There is no aortic dissection. There is extensive bilateral airspace disease affecting all lobes of both lungs which could represent pulmonary edema or pneumonitis. There are small bilateral pleural effusions. There is no pericardial effusion. In the upper abdomen the adrenal glands are within normal limits. The visualized portion of the liver and spleen are unremarkable. IMPRESSION: NO CT EVIDENCE OF PULMONARY THROMBOEMBOLIC DISEASE EXTENSIVE BILATERAL AIRSPACE DISEASE AFFECTING ALL LOBES OF BOTH LUNGS WHICH COULD REPRESENT PULMONARY EDEMA OR EXTENSIVE PNEUMONITIS SMALL BILATERAL PLEURAL EFFUSIONS
[2017-10-23] MEDS ORDERED: ZITHROMAX 500 MG in NACL 0.9% 250ML 250 ML IV ONE (02:09)
[2017-10-23] MEDS ORDERED: cefTRIAXone 1 GM in NACL 0.9% 20 ML IV ONE (02:09)
--- NOTE | 2017-10-23 02:41 | XRay Report ---
FINAL REPORT PROCEDURE: XR CHEST 1V AP TECHNIQUE: Chest radiograph anteroposterior view. CPT 68252 HISTORY: Dyspnea COMPARISON: No prior studies are available for comparison. FINDINGS: Heart: Normal. Mediastinum/Vessels: Normal. Lungs/Pleural space: There are bilateral pulmonary infiltrates worse on the right. There are no effusions or pneumothoraces per. Bony thorax: No acute osseous abnormality. Life support devices: None. IMPRESSION: Bilateral perihilar pneumonitis worse on the right..
[2017-10-23] MEDS ORDERED: LASIX IV ONE (02:43)
--- NOTE | 2017-10-23 03:11 | History and Physical Report ---
History of Present Illness Date of examination: 10/23/17 Date of admission: 10/23/17 Chief complaint: cough History of present illness: This is a 32-year-old female with a past medical history of hypertension who presents to the emergency department via EMS from home with a complaint of shortness of breath and productive cough. The cough has progressively worsened over the last couple of days. The patient also reports progressive shortness of breath that started today. She did not receive anything for her symptoms or take anything prior to presentation. Patient presented to the ER with a pulse ox of about 90% on room air. She denies any tobacco or illicit drug use. Patient does report recent hospitalization with a performed on 10/08/[address] Chilel.the patient was discharged home on 10/11/17. Patient denies recent travel, recent surgeries, or any sick contacts at home. She denies any fever, chest pain, back pain, nausea, vomiting or diaphoresis. Past History Past Medical History: hypertension Past Surgical History: Social history: no significant social history Family history: no significant family history Medications and Allergies Allergies Allergy/AdvReac Type Severity Reaction Status Date / Time No Known Allergies Allergy Verified 11/14/13 21:30 Home Medications Medication Instructions Recorded Confirmed Last Taken Type Pnv with Ca,No.72/Iron/FA 1 tab PO DAILY 11/14/13 10/08/17 10/07/17 21:00 History [ Plus Tablet] Ferrous Sulfate [Feosol 325 MG tab] 325 mg PO BID #60 tablet 10/08/17 Unknown Rx HYDROcodone/APAP 5-325 [[place] 1 each PO Q6HR PRN #30 tablet 10/08/17 Unknown Rx 5/325] Ibuprofen [Motrin] 800 mg PO Q8HR PRN #30 tablet 10/08/17 Unknown Rx Labetalol [Normodyne TAB] 200 mg PO BID #60 tablet 10/08/17 Unknown Rx Vit Calc,Iron,Folic 1 each PO DAILY #30 tablet 10/08/17 Unknown Rx [ Vitamins] Active Meds: Active Medications Azithromycin 500 mg/ Sodium (Chloride) 250 mls @ 250 mls/hr IV ONCE.ED ONE Stop: 10/23/17 03:08 Review of Systems All systems: negative Exam - Constitutional Vitals: Temp Pulse Resp BP Pulse Ox 98.5 F 116 H 22 176/145 93 10/22/17 23:51 10/23/17 00:12 10/23/17 00:12 10/22/17 23:34 10/22/17 23:51 General appearance: Present: no acute distress, well-nourished - EENT Eyes: Present: PERRL ENT: hearing intact, clear oral mucosa - Neck Neck: Present: supple, normal ROM - Respiratory Respiratory effort: normal Respiratory: bilateral: diminished, rhonchi - Cardiovascular Heart Sounds: Present: S1 & S2. Absent: rub, click - Extremities Extremities: pulses symmetrical, No edema Peripheral Pulses: within normal limits - Abdominal General gastrointestinal: Present: soft, non-tender, non-distended, normal bowel sounds Female genitourinary: Present: normal - Integumentary Integumentary: Present: clear, warm, dry - Musculoskeletal Musculoskeletal: gait normal, strength equal bilaterally - Psychiatric Psychiatric: appropriate mood/affect, intact judgment & insight - Neurologic Neurologic: CNII-XII intact, moves all extremities Results - Labs CBC & Chem 7: 10/22/17 23:51 10/22/17 23:51 Labs: Laboratory Last Values WBC 10.1 K/mm3 (4.5-11.0) 10/22/17 23:51 RBC 4.61 M/mm3 (3.65-5.03) 10/22/17 23:51 Hgb 12.1 gm/dl (10.1-14.3) 10/22/17 23:51 Hct 38.7 % (30.3-42.9) 10/22/17 23:51 MCV 84 fl (79-97) 10/22/17 23:51 MCH 26 pg (28-32) L 10/22/17 23:51 MCHC 31 % (30-34) 10/22/17 23:51 RDW 17.2 % (13.2-15.2) H 10/22/17 23:51 Plt Count 371 K/mm3 (140-440) 10/22/17 23:51 Lymph % (Auto) 17.6 % (13.4-35.0) 10/22/17 23:51 [place] % (Auto) 3.8 % (0.0-7.3) 10/22/17 23:51 Eos % (Auto) 2.2 % (0.0-4.3) 10/22/17 23:51 Baso % (Auto) 0.3 % (0.0-1.8) 10/22/17 23:51 Lymph # 1.8 K/mm3 (1.2-5.4) 10/22/17 23:51 [place] # 0.4 K/mm3 (0.0-0.8) 10/22/17 23:51 Eos # 0.2 K/mm3 (0.0-0.4) 10/22/17 23:51 Baso # 0.0 K/mm3 (0.0-0.1) 10/22/17 23:51 Seg Neutrophils % 76.1 % (40.0-70.0) H 10/22/17 23:51 Seg Neutrophils # 7.7 K/mm3 (1.8-7.7) 10/22/17 23:51 D-Dimer 1221.57 ng/mlDDU (0-234) H 10/22/17 23:51 POC ABG pH 7.377 (7.35-7.45) 10/23/17 00:20 POC ABG pCO2 30.5 (35-45) L 10/23/17 00:20 POC ABG pO2 67 (80-105) L 10/23/17 00:20 POC ABG HCO3 17.9 10/23/17 00:20 POC ABG Total CO2 19 10/23/17 00:20 POC ABG O2 Sat 93 10/23/17 00:20 POC ABG Base Excess -7 10/23/17 00:20 FiO2 55 % 10/23/17 00:20 Sodium 141 mmol/L (137-145) 10/22/17 23:51 Potassium 4.4 mmol/L (3.6-5.0) 10/22/17 23:51 Chloride 108.1 mmol/L (98-107) H 10/22/17 23:51 Carbon Dioxide 18 mmol/L (22-30) L 10/22/17 23:51 Anion Gap 19 mmol/L 10/22/17 23:51 BUN 15 mg/dL (7-17) 10/22/17 23:51 Creatinine 0.9 mg/dL (0.7-1.2) 10/22/17 23:51 Estimated GFR > 60 ml/min 10/22/17 23:51 BUN/Creatinine Ratio 17 % 10/22/17 23:51 Glucose 96 mg/dL (65-100) 10/22/17 23:51 Calcium 8.4 mg/dL (8.4-10.2) 10/22/17 23:51 Magnesium 1.90 mg/dL (1.7-2.3) 10/22/17 23:51 Troponin T < 0.010 ng/mL (0.00-0.029) 10/22/17 23:51 NT-Pro-B Natriuret Pep 2927 pg/mL (0-450) H 10/23/17 02:08 HCG, Qual Positive (Negative) 10/22/17 23:51 Assessment and Plan Assessment and plan: Acute hypoxemic respiratory failure. Continue O2 for supportive care. [place] BiPAP as clinically indicated. Etiology may be secondary to pneumonitis versus pulmonary edema. CT of the chest reveals extensive bilateral airspace disease affecting all lobes of both lungs which could represent pulmonary edema or extensive pneumonitis. Consider cardiology and pulmonary consultations. Acute pulmonary edema. Etiology may be secondary to cardiomyopathy. Check echocardiogram and consider cardiology consultation. Patient does have elevated BNP at 2927. Patient may also have flash pulmonary edema secondary to elevated BP. Start Lasix IV daily. ? Pneumonitis. Continue empiric antibiotics of ceftriaxone and azithromycin. Accelerated hypertension/preeclampsia persisting after delivery. Continue current medications. Labetalol IV prn
[2017-10-23] MEDS ORDERED: NORMODYNE PO ONE (03:13)
[2017-10-23] MEDS ORDERED: NORMODYNE ONE (03:16)
[2017-10-23] MEDS ORDERED: MOTRIN PO PRN (03:46)
[2017-10-23] MEDS ORDERED: DULCOLAX PR PRN (03:48)
[2017-10-23] MEDS ORDERED: TYLENOL PO PRN (03:48)
[2017-10-23] MEDS ORDERED: MILK OF MAGNESIA PO PRN (03:48)
[2017-10-23] MEDS ORDERED: ZOFRAN IV PRN (03:48)
[2017-10-23] MEDS ORDERED: NORMODYNE IV PRN (03:54)
[2017-10-23] MEDS ORDERED: NORCO 5/325 ONE (04:38)
[2017-10-23] MEDS ORDERED: NORMODYNE IV ONE ×2 (04:38→05:22)
[2017-10-23] MEDS: NORCO 5/325 PO PRN ×2 (04:42→18:55)
[2017-10-23] MEDS: FEOSOL PO SCH ×2 (09:39→21:45)
[2017-10-23] MEDS: LASIX IV SCH (09:41)
[2017-10-23] MEDS: ZITHROMAX 500 MG in NACL 0.9% 250ML 250 ML IV SCH (09:41)
[2017-10-23] MEDS: LOVENOX SUB-Q SCH (09:42)
[2017-10-23] MEDS ORDERED: NORMODYNE PO SCH ×2 (10:00→14:00)
[2017-10-23] MEDS ORDERED: [UNRECOGNIZED DRUG - REMARK] PO SCH (10:00)
[2017-10-23] MEDS ORDERED: ROCEPHIN/NS 1 GM/50 ML 1 GM/50 ML BAG IV SCH ×2 (10:00)
[2017-10-23] MEDS: PRENATAL VITAMIN PO SCH (10:30)
[2017-10-23] MEDS: PROCARDIA XL PO SCH (13:36)
[2017-10-23] MEDS: APRESOLINE PO SCH ×2 (13:36→21:45)
[2017-10-23] MEDS ORDERED: MAGNESIUM SULFATE 4GM/100ML 4 GM/100 ML BAG IV ONE (14:00)
[2017-10-23 14:12] LABS: Basophils % (Auto) 0.6 % (0.0-1.8); Hematocrit 39.9 % (30.3-42.9); Hemoglobin 12.9 gm/dl (10.1-14.3); Mean Corpuscular HGB Conc 32 % (30-34); Mean Corpuscular Hemoglobin 27 pg (28-32); Mean Corpuscular Volume 84 fl (79-97); Platelet Count 330 K/mm3 (140-440); Red Blood Count 4.73 M/mm3 (3.65-5.03); Red Cell Distribution Width 17.4 % (13.2-15.2); White Blood Count 7.9 K/mm3 (4.5-11.0)
[2017-10-23 14:31] LABS: Bilirubin,Urine NEG (Negative); Blood,Urine NEG (Negative); Ketones,Urine NEG (Negative); Leukocyte Esterase,Urine NEG (Negative); Mucus,Urine FEW /HPF; Nitrite,Urine NEG (Negative); Protein,Urine <15 mg/dL mg/dL (Negative); RBC,Urine < 1.0 /HPF (0.0-6.0); Urobilinogen,Urine < 2.0 mg/dL (<2.0); WBC,Urine < 1.0 /HPF (0.0-6.0)
[2017-10-23 14:32] LABS: Alanine Aminotransferase 11 units/L (7-56); Albumin 3.7 g/dL (3.9-5); Alkaline Phosphatase 59 units/L (35-129); Anion Gap 22 mmol/L; BUN/Creatinine Ratio 23; Blood Urea Nitrogen 18 mg/dL (7-17); Calcium 8.7 mg/dL (8.4-10.2); Carbon Dioxide 19 mmol/L (22-30); Chloride 101.5 mmol/L (98-107); Glucose 152 mg/dL (65-100); Potassium 4.4 mmol/L (3.6-5.0); Sodium 138 mmol/L (137-145); Total Protein 7.3 g/dL (6.3-8.2)
[2017-10-23] MEDS ORDERED: APRESOLINE IV ONE (14:56)
[2017-10-23] MEDS ORDERED: MAGNESIUM SULFATE 40GM/1000ML 40 GM/1,000 ML BAG IV SCH (15:00)
--- NOTE | 2017-10-23 18:49 | Event Note ---
Date: 10/23/17 Patient seen and examined Medical records reviewed admitted this morning with worsening shortness of breath and hypoxic respiratory failure Workup is in progress, agree with the current management Plan of care discussed with the patient and her nurse
[2017-10-23] MEDS: GUAIFENESIN DM SYRUP PO PRN (18:55)
[2017-10-23] MEDS: NORMODYNE PO SCH (21:46)
--- NOTE | 2017-10-23 22:02 | Consultation ---
History of Present Illness Consult date: 10/23/17 Reason for consult: other (HTN) History of present illness: Patient is a 32 year old , who is s/p repeat C/section at 33 weeks on for severe superimposed pre-eclampsia on chronic HTN, who presented to the ER last night complaining of shortness of breath and productive cough for 4 days. She denied any fever or chest pain. She has been on PO labetolol for her chronic HTN. As per patient, she developed a cough and suddenly became unable to breath. In the ER, her O2 sat was 90% at RA, BP was 181/142, repeat was 176/ 145, HR 123. She was given oxygen, BiPAP, IV anti-hypertensive. CXR showed bilateral pulmonary infiltrates and pulmonary edema. Chest CT showed similar findings and was negative for pulmonary embolism. She was given IV rocephin and zithromax for pneumonia. She has been under the care of the hospitalist team since admission. I was called for a automatic typewriter inspector consult today. I found the patient sitting in bed with oxygen via NC. She denies any headache, visual changes, or RUQ pain. When I was called for the consult, I ordered toxemia labs and started her on magnesium sulfate for superimposed pre-eclampsia on chronic HTN. Past History Past Medical History: hypertension Past Surgical History: section - Obstetrical History : 5 Para: 5 Hx # Term Pregnancies: 2 Number of Pregnancies: 3 Number of Living Children: 5 Medications and Allergies Allergies Allergy/AdvReac Type Severity Reaction Status Date / Time No Known Allergies Allergy Verified 11/14/13 21:30 Home Medications Medication Instructions Recorded Confirmed Last Taken Type Pnv with Ca,No.72/Iron/FA 1 tab PO DAILY 11/14/13 10/08/17 10/07/17 21:00 History [ Plus Tablet] Ferrous Sulfate [Feosol 325 MG tab] 325 mg PO BID #60 tablet 10/08/17 Unknown Rx HYDROcodone/APAP 5-325 [[place] 1 each PO Q6HR PRN #30 tablet 10/08/17 Unknown Rx 5/325] Ibuprofen [Motrin] 800 mg PO Q8HR PRN #30 tablet 10/08/17 Unknown Rx Labetalol [Normodyne TAB] 200 mg PO BID #60 tablet 10/08/17 Unknown Rx Vit Calc,Iron,Folic 1 each PO DAILY #30 tablet 10/08/17 Unknown Rx [ Vitamins] Active Meds: Active Medications Acetaminophen (Tylenol) 650 mg PO Q4H PRN PRN Reason: Pain MILD(1-3)/Fever >100.5/MAO Acetaminophen/Hydrocodone Bitart ([place] 5/325) 1 each PO Q6H PRN PRN Reason: Pain Last Admin: 10/23/17 18:55 Dose: 1 each Bisacodyl (Dulcolax) 10 mg DC QDAY PRN PRN Reason: Constipation unrelieved by MOM Enoxaparin Sodium (Lovenox) 40 mg SUB-Q QDAY [facility] Last Admin: 10/23/17 09:42 Dose: 40 mg Ferrous Sulfate (Feosol) 325 mg PO BID [facility] Last Admin: 10/23/17 21:45 Dose: 325 mg Furosemide (Lasix) 40 mg IV DAILY [facility] Last Admin: 10/23/17 09:41 Dose: 40 mg Guaifenesin (Guaifenesin Dm Syrup) 10 ml PO Q8H PRN PRN Reason: Cough Last Admin: 10/23/17 18:55 Dose: 10 ml Hydralazine HCl (Apresoline) 25 mg PO Q8HR [facility] Last Admin: 10/23/17 21:45 Dose: 25 mg Azithromycin 500 mg/ Sodium (Chloride) 250 mls @ 250 mls/hr IV Q24HR [facility] Last Admin: 10/23/17 09:41 Dose: 250 mls/hr Ceftriaxone Sodium 1 gm/ (Sodium Chloride) 20 mls @ 2 mls/min IV Q24HR [facility] Magnesium Sulfate (Magnesium Sulfate 40gm/1000ml) 40 gm in 1,000 mls @ 25 mls/ hr IV DIRECT [facility] PRN Reason: 1 GM/HR Last Admin: 10/23/17 15:51 Dose: 1 gm/hr, 25 mls/hr Ibuprofen (Motrin) 800 mg PO Q8H PRN PRN Reason: Moder Pain unrelieved by [place] Labetalol HCl (Normodyne) 10 mg IV PRN PRN PRN Reason: Blood Pressure Last Admin: 10/23/17 04:42 Dose: 10 mg Labetalol HCl (Normodyne) 100 mg PO NOW [facility] Last Admin: 10/23/17 13:36 Dose: 100 mg Labetalol HCl (Normodyne) 300 mg PO BID [facility] Last Admin: 10/23/17 21:46 Dose: 300 mg Magnesium Hydroxide (Milk Of Magnesia) 30 ml PO Q4H PRN PRN Reason: Constipation Multivitamins/Iron/Calcium ( Vitamin) 1 each PO DAILY [facility] Last Admin: 10/23/17 10:30 Dose: 1 each Nifedipine (Procardia Xl) 30 mg PO QDAY [facility] Last Admin: 10/23/17 13:36 Dose: 30 mg Ondansetron HCl (Zofran) 4 mg IV Q8H PRN PRN Reason: N/V unrelieved by Reglan Pneumococcal Polyvalent Vaccine (Pneumovax 23) 0.5 ml IM .ONCE ONE Stop: 10/24/17 12:01 - Vital Signs Vital signs: Vital Signs BP 181/142 10/22/17 23:24 Temp Pulse Resp BP Pulse Ox 98.4 F 104 H 20 126/86 96 10/23/17 20:07 10/23/17 21:40 10/23/17 20:07 10/23/17 21:40 10/23/17 21:40 - Physical Exam Cardiovascular: Normal S1, Normal S2 Lungs: Positive: Other (rales B/L) Vulva: both: normal Results Result Diagrams: 10/23/17 13:45 10/23/17 13:45 Abnormal lab results 10/22/17 10/22/17 10/22/17 Range/Units 23:51 23:51 23:51 MCH 26 L (28-32) pg RDW 17.2 H (13.2-15.2) % Lymph % (Auto) (13.4-35.0) % Lymph # (1.2-5.4) K/mm3 Seg Neutrophils % 76.1 H (40.0-70.0) % D-Dimer 1221.57 H (0-234) ng/mlDDU POC ABG pCO2 (35-45) POC ABG pO2 (80-105) Chloride 108.1 H (98-107) mmol/L Carbon Dioxide 18 L (22-30) mmol/L BUN (7-17) mg/dL Glucose (65-100) mg/dL Lactate Dehydrogenase (91-180) units/L NT-Pro-B Natriuret Pep (0-450) pg/mL Albumin (3.9-5) g/dL 10/23/17 10/23/17 10/23/17 Range/Units 00:20 02:08 13:45 MCH 27 L (28-32) pg RDW 17.4 H (13.2-15.2) % Lymph % (Auto) 8.5 L (13.4-35.0) % Lymph # 0.7 L (1.2-5.4) K/mm3 Seg Neutrophils % 88.4 H (40.0-70.0) % D-Dimer (0-234) ng/mlDDU POC ABG pCO2 30.5 L (35-45) POC ABG pO2 67 L (80-105) Chloride (98-107) mmol/L Carbon Dioxide (22-30) mmol/L BUN (7-17) mg/dL Glucose (65-100) mg/dL Lactate Dehydrogenase (91-180) units/L NT-Pro-B Natriuret Pep 2927 H (0-450) pg/mL Albumin (3.9-5) g/dL 10/23/17 10/23/17 Range/Units 13:45 13:45 MCH (28-32) pg RDW (13.2-15.2) % Lymph % (Auto) (13.4-35.0) % Lymph # (1.2-5.4) K/mm3 Seg Neutrophils % (40.0-70.0) % D-Dimer (0-234) ng/mlDDU POC ABG pCO2 (35-45) POC ABG pO2 (80-105) Chloride (98-107) mmol/L Carbon Dioxide 19 L (22-30) mmol/L BUN 18 H (7-17) mg/dL Glucose 152 H (65-100) mg/dL Lactate Dehydrogenase 389 H (91-180) units/L NT-Pro-B Natriuret Pep (0-450) pg/mL Albumin 3.7 L (3.9-5) g/dL All other labs normal. Assessment and Plan - Patient Problems (1) delivery delivered Current Visit: Yes Status: Acute Plan to address problem: Patient is taking tylenol and motrin for pain as needed. Incision is healing well. (2) Respiratory failure Current Visit: Yes Status: Acute Plan to address problem: Patient is on oxygen, IV antibiotics for pneumonia. Continue care as per hospitalist and ball truing machine operator. (3) Pneumonia Current Visit: Yes Status: Acute Plan to address problem: care as per ball truing machine operator. (4) Pre-eclampsia superimposed on chronic hypertension Current Visit: Yes Status: Acute Plan to address problem: Patient is on Magnesium sulfate. Will continue to monitor BP, Mg level, DTR, and urine output. She is on labetolol and nifedipine. IV hydralazine for diastolic BP >105. (5) Pulmonary edema Current Visit: Yes Status: Acute Plan to address problem: Care as per ball truing machine operator.
[2017-10-24] MEDS: NORCO 5/325 PO PRN (00:55)
[2017-10-24] MEDS: APRESOLINE PO SCH ×3 (06:26→21:38)
[2017-10-24] MEDS: PROCARDIA XL PO SCH (09:49)
[2017-10-24] MEDS: NORMODYNE PO SCH ×2 (09:49→21:39)
[2017-10-24] MEDS: PRENATAL VITAMIN PO SCH (09:52)
[2017-10-24] MEDS: FEOSOL PO SCH ×2 (09:52→21:38)
[2017-10-24] MEDS: LOVENOX SUB-Q SCH (09:53)
[2017-10-24] MEDS: LASIX IV SCH (09:53)
[2017-10-24] MEDS ORDERED: PNEUMOVAX 23 IM ONE (12:00)
[2017-10-24] MEDS: ROCEPHIN 1 GM in NACL 0.9% 20 ML IV SCH (12:25)
[2017-10-24] MEDS: ZITHROMAX 500 MG in NACL 0.9% 250ML 250 ML IV SCH (12:26)
--- NOTE | 2017-10-24 13:32 | Progress Note ---
Assessment and Plan A: 32 year old who is admitted for acute respiratory failure -?Pneumonia -?Peripartum cardiomyopathy with Diastolic dysfunction (NB: BNP >2000) -s/p repeat C/section at 33 weeks on 10/08/17 -Superimposed pre-eclampsia on chronic HTN Meds: -Labetalol 300 mg twice a day -Procardia 30 mg XL daily -Lasix 40 mg daily -Magnesium sulfate per protocol P: -Hospitalist notes reviewed, thanks -We'll discontinue magnesium at this time -Echo result appears to show normal ejection fraction ?Diastolic dysfxn -Disposition as per hospitalist team/internal medicine - Patient Problems (1) Respiratory failure Current Visit: Yes Status: Acute (2) delivery delivered Current Visit: Yes Status: Acute (3) Pre-eclampsia superimposed on chronic hypertension Current Visit: Yes Status: Acute Subjective - Subjective Date of service: 10/24/17 Principal diagnosis: ARF ?Pneumonia ??Peripartum cardiomyopathy Interval history: Patient seen and examined, still complains of shortness of breath. No chest pain. No headache, no scotomata or epigastric pain. As adequate urine output Echo seems to show normal ejection fraction Patient reports: appetite normal, voiding normally, pain well controlled Objective - Vital Signs Latest vital signs: Vital Signs Temp Pulse Resp BP BP Pulse Ox 10/24/17 09:49 114/67 10/24/17 07:33 98.6 F 92 H 20 114/67 98 10/24/17 06:23 88 18 113/68 95 10/24/17 04:36 97.8 F 92 H 18 121/73 98 10/24/17 00:22 98.6 F 92 H 20 129/78 96 10/23/17 21:40 104 H 126/86 96 10/23/17 20:07 98.4 F 109 H 20 128/84 97 10/23/17 18:51 104 H 10/23/17 18:09 104 H 150/102 10/23/17 15:38 99.1 F 103 H 20 138/80 10/23/17 15:12 100 H 156/109 10/23/17 14:39 99.1 F 100 H 18 156/109 95 10/23/17 13:36 99 H 154/106 Intake and Output 10/23/17 10/24/17 10/24/17 23:59 07:59 15:59 Intake Total 100 480 Output Total 550 675 Balance -450 -195 Intake: Oral 100 480 Output: Urine 550 675 Indwelling Catheter 550 675 Other: Total, Intake Amount 100 120 Total, Output Amount 200 200 Voiding Method Indwelling Catheter # Bowel Movements 0 Weight 88.496 kg Patient Weight 10/24/17 23:59 Weight 88.496 kg - Exam Abdomen: Present: normal appearance, soft. Absent: distention, tenderness, guarding, rigidity Uterus: Present: firm, fundal height below umbilicus Extremities: Present: normal Incision: Present: dry, intact - Labs Labs: Abnormal lab results 10/23/17 10/23/17 10/23/17 Range/Units 13:45 13:45 13:45 MCH 27 L (28-32) pg RDW 17.4 H (13.2-15.2) % Lymph % (Auto) 8.5 L (13.4-35.0) % Lymph # 0.7 L (1.2-5.4) K/mm3 Seg Neutrophils % 88.4 H (40.0-70.0) % Carbon Dioxide 19 L (22-30) mmol/L BUN 18 H (7-17) mg/dL Glucose 152 H (65-100) mg/dL Lactate Dehydrogenase 389 H (91-180) units/L Albumin 3.7 L (3.9-5) g/dL
--- NOTE | 2017-10-24 17:58 | Progress Note ---
Assessment and Plan Assessment and plan: --Acute hypoxic respiratory failure; secondary to fluid overload Possible .Marisela/ cardiomyopathy, diastolic dysfunction BNP more than 2000s, left ventricle ejection fraction 50-55% Continue anti-failure medications, closely monitor input output, consider cardiology evaluation if needed --Malignant hypertension/ preeclampsia and chronic hypertension; Continue current antihypertensives and when necessary medications,PIZZA DELIVERY DRIVER following --Acute pulmonary edema/secondary to diastolic congestive heart failure and fluid overload, IV diuretics, fluid restriction, input output monitoring --Elevated d-dimer's; negative PE, check lower extremity venous Doppler to rule out DVT, supportive care --Status post /peripartum state, continue supportive care --DVT prophylaxis; Lovenox Ambulate as tolerated, follow lower extremity venous Doppler We will closely monitor the patient and adjust management as needed Possible discharge home tomorrow if stable History Interval history: Patient seen and evaluated this morning medical records reviewed No new events reported by nursing staff Patient has mild shortness of breath, received magnesium sulfate drip per PIZZA DELIVERY DRIVER Vital signs reviewed Hospitalist Physical - Constitutional Vitals: Temp Pulse Resp BP Pulse Ox 98.6 F 72 20 128/73 93 10/24/17 15:28 10/24/17 15:31 10/24/17 15:28 10/24/17 16:33 10/24/17 15:31 General appearance: Present: no acute distress, well-nourished, obese - EENT Eyes: Present: PERRL, EOM intact - Neck Neck: Present: supple, normal ROM - Respiratory Respiratory effort: normal Respiratory: bilateral: diminished, negative: rales, rhonchi, wheezing - Cardiovascular Rhythm: regular Heart Sounds: Present: S1 & S2 - Extremities Extremities: no ischemia, No edema - Abdominal General gastrointestinal: soft, non-tender, non-distended, normal bowel sounds - Integumentary Integumentary: Present: clear, warm - Psychiatric Psychiatric: appropriate mood/affect, cooperative - Neurologic Neurologic: CNII-XII intact, moves all extremities Results - Labs CBC & Chem 7: 10/23/17 13:45 10/23/17 13:45 Labs: Laboratory Last Values WBC 7.9 K/mm3 (4.5-11.0) 10/23/17 13:45 RBC 4.73 M/mm3 (3.65-5.03) 10/23/17 13:45 Hgb 12.9 gm/dl (10.1-14.3) 10/23/17 13:45 Hct 39.9 % (30.3-42.9) 10/23/17 13:45 MCV 84 fl (79-97) 10/23/17 13:45 MCH 27 pg (28-32) L 10/23/17 13:45 MCHC 32 % (30-34) 10/23/17 13:45 RDW 17.4 % (13.2-15.2) H 10/23/17 13:45 Plt Count 330 K/mm3 (140-440) 10/23/17 13:45 Lymph % (Auto) 8.5 % (13.4-35.0) L 10/23/17 13:45 [place] % (Auto) 2.5 % (0.0-7.3) 10/23/17 13:45 Eos % (Auto) 0.0 % (0.0-4.3) 10/23/17 13:45 Baso % (Auto) 0.6 % (0.0-1.8) 10/23/17 13:45 Lymph # 0.7 K/mm3 (1.2-5.4) L 10/23/17 13:45 [place] # 0.2 K/mm3 (0.0-0.8) 10/23/17 13:45 Eos # 0.0 K/mm3 (0.0-0.4) 10/23/17 13:45 Baso # 0.0 K/mm3 (0.0-0.1) 10/23/17 13:45 Seg Neutrophils % 88.4 % (40.0-70.0) H 10/23/17 13:45 Seg Neutrophils # 6.9 K/mm3 (1.8-7.7) 10/23/17 13:45 D-Dimer 1221.57 ng/mlDDU (0-234) H 10/22/17 23:51 POC ABG pH 7.377 (7.35-7.45) 10/23/17 00:20 POC ABG pCO2 30.5 (35-45) L 10/23/17 00:20 POC ABG pO2 67 (80-105) L 10/23/17 00:20 POC ABG HCO3 17.9 10/23/17 00:20 POC ABG Total CO2 19 10/23/17 00:20 POC ABG O2 Sat 93 10/23/17 00:20 POC ABG Base Excess -7 10/23/17 00:20 FiO2 55 % 10/23/17 00:20 Sodium 138 mmol/L (137-145) 10/23/17 13:45 Potassium 4.4 mmol/L (3.6-5.0) 10/23/17 13:45 Chloride 101.5 mmol/L (98-107) 10/23/17 13:45 Carbon Dioxide 19 mmol/L (22-30) L 10/23/17 13:45 Anion Gap 22 mmol/L 10/23/17 13:45 BUN 18 mg/dL (7-17) H 10/23/17 13:45 Creatinine 0.8 mg/dL (0.7-1.2) 10/23/17 13:45 Estimated GFR > 60 ml/min 10/23/17 13:45 BUN/Creatinine Ratio 23 % 10/23/17 13:45 Glucose 152 mg/dL (65-100) H 10/23/17 13:45 Uric Acid 6.7 mg/dL (3.5-7.6) 10/23/17 02:13 Calcium 8.7 mg/dL (8.4-10.2) 10/23/17 13:45 Magnesium 1.90 mg/dL (1.7-2.3) 10/22/17 23:51 Total Bilirubin 0.30 mg/dL (0.1-1.2) 10/23/17 13:45 AST 17 units/L (5-40) 10/23/17 13:45 ALT 11 units/L (7-56) 10/23/17 13:45 Alkaline Phosphatase 59 units/L (35-129) 10/23/17 13:45 Lactate Dehydrogenase 389 units/L (91-180) H 10/23/17 13:45 Troponin T < 0.010 ng/mL (0.00-0.029) 10/22/17 23:51 NT-Pro-B Natriuret Pep 2927 pg/mL (0-450) H 10/23/17 02:08 Total Protein 7.3 g/dL (6.3-8.2) 10/23/17 13:45 Albumin 3.7 g/dL (3.9-5) L 10/23/17 13:45 Albumin/Globulin Ratio 1.0 % 10/23/17 13:45 HCG, Qual Positive (Negative) 10/22/17 23:51 Urine Color Yellow (Yellow) 10/23/17 14:00 Urine Turbidity Clear (Clear) 10/23/17 14:00 Urine pH 5.0 (5.0-7.0) 10/23/17 14:00 Ur Specific [place] 1.012 (1.003-1.030) 10/23/17 14:00 Urine Protein <15 mg/dl mg/dL (Negative) 10/23/17 14:00 Urine Glucose (UA) Neg mg/dL (Negative) 10/23/17 14:00 Urine Ketones Neg mg/dL (Negative) 10/23/17 14:00 Urine Blood Neg (Negative) 10/23/17 14:00 Urine Nitrite Neg (Negative) 10/23/17 14:00 Urine Bilirubin Neg (Negative) 10/23/17 14:00 Urine Urobilinogen < 2.0 mg/dL (<2.0) 10/23/17 14:00 Ur Leukocyte Esterase Neg (Negative) 10/23/17 14:00 Urine WBC (Auto) < 1.0 /HPF (0.0-6.0) 10/23/17 14:00 Urine RBC (Auto) < 1.0 /HPF (0.0-6.0) 10/23/17 14:00 Hyaline Casts 1 /LPF 10/23/17 14:00 Urine Mucus Few /HPF 10/23/17 14:00
[2017-10-24] MEDS: GUAIFENESIN DM SYRUP PO PRN (22:12)
[2017-10-25] MEDS: APRESOLINE PO SCH ×2 (06:33→13:48)
[2017-10-25] MEDS ORDERED: ZITHROMAX PO SCH (10:00)
[2017-10-25] MEDS: LOVENOX SUB-Q SCH (11:13)
[2017-10-25] MEDS: PRENATAL VITAMIN PO SCH (11:14)
[2017-10-25] MEDS: NORMODYNE PO SCH (11:14)
[2017-10-25] MEDS: PROCARDIA XL PO SCH (11:14)
[2017-10-25] MEDS: LASIX IV SCH (11:14)
[2017-10-25] MEDS: FEOSOL PO SCH (11:15)
[2017-10-25] MEDS: ROCEPHIN 1 GM in NACL 0.9% 20 ML IV SCH (12:04)
--- NOTE | 2017-10-25 12:10 | Discharge Summary ---
Providers - Providers Date of Admission: 10/23/17 03:48 Date of discharge: 10/25/17 Attending physician: BAYRON CADENA 10/23/17 03:48 Consult to Physician [CONS] Routine Consulting Provider: KARLA GREGG Reason For Exam: recent C-sec Place consult to:: dr. gregg Notified:: answering service Phone number called:: Was contact made?: Yes If yes, spoke with:: jessica Time called:: 12:21 Primary care physician: SCARLET JUÁREZ Hospitalization Reason for admission: worsening shortness of breath/cough Condition: Fair Pertinent studies: Lower extremity venous Doppler; negative for DVT CT angiogram of the chest; pulmonary edema, pneumonitis Chest x-ray; bilateral perihilar pneumonitis Echocardiogram; ejection fraction 50-55%, small pericardial effusion Hospital course: Pleasant 52-year-old -[place]e female patient with past medical history of hypertension recently had a on 10/08/2017 is admitted through emergency room with worsening shortness of breath and cough Patient was initially evaluated and admitted to the hospital symptomatically managed for pulmonary edema secondary to congestive heart failure Echocardiogram revealed diastolic dysfunction Patient had elevated d-dimer is, negative for PE and DVT CT scan and chest x-ray show acute pneumonitis for which patient received empiric antibiotics Symptoms significantly improved Today she is comfortable in bed no new complaints, Vital signs stable [id number] evaluation and physical examination done by me. Discharge is unremarkable Patient is hemodynamically and clinically stable for discharge, Follow-up with primary care physician/primary ADMINISTRATIVE TECHNICIAN and wild animal caretaker per Scheduled for further evaluation and management Patient is stable at the time of discharge Discharge diagnosis: --Acute hypoxic respiratory failure; secondary to fluid overload --Acute pneumonitis --Acute pulmonary edema due to diastolic congestive heart failure --Peripartum diastolic congestive heart failure and fluid overload, --Malignant hypertension/ preeclampsia and chronic hypertension; --Elevated d-dimer's; negative PE, negative DVT --Status post /peripartum state, Disposition: DC-30 STILL A PATIENT Time spent for discharge: 33 min Core Measure Documentation - Palliative Care Palliative Care/ Comfort Measures: Not Applicable - Core Measures Any of the following diagnoses?: none Exam - Constitutional Vitals: Temp Pulse Resp BP Pulse Ox 98.8 F 80 20 146/86 97 10/25/17 11:52 10/25/17 11:52 10/25/17 11:52 10/25/17 11:52 10/25/17 11:52 General appearance: Present: no acute distress, well-nourished - EENT Eyes: Present: PERRL, EOM intact - Neck Neck: Present: supple, normal ROM - Respiratory Respiratory effort: normal Respiratory: negative: rales, rhonchi, wheezing - Cardiovascular Rhythm: regular Heart Sounds: Present: S1 & S2 - Extremities Extremities: no ischemia Extremity abnormal: edema - Abdominal General gastrointestinal: Present: soft, non-tender, non-distended, normal bowel sounds - Integumentary Integumentary: Present: clear, warm - Musculoskeletal Musculoskeletal: strength equal bilaterally - Psychiatric Psychiatric: appropriate mood/affect, cooperative - Neurologic Neurologic: CNII-XII intact, moves all extremities Plan Activity: no restrictions Diet: low salt Follow up with: SCARLET JUÁREZ MD [Primary Care Provider] - 3-5 Days MILI LOW MD [Staff Physician] - 7 Days VLADIMIR HICKEY MD [Staff Physician] - 7 Days Forms: Work/School Release Form Prescriptions: Cephalexin [Keflex] 500 mg PO Q8HR #15 cap Furosemide [Lasix] 20 mg PO DAILY #30 tablet hydrALAZINE [Apresoline TAB] 25 mg PO Q8HR #90 tablet Labetalol [Normodyne TAB] 300 mg PO BID #60 tablet NIFEdipine XL [Procardia Xl] 30 mg PO QDAY #30 tablet
[2017-10-25 17:38] VITALS: BP 135/93
== END 2017-10-25 17:50 | disposition home or self-care (01) | DRG 776 ==
LOC: ED 23:14 → 3A 10-23 03:48 → UNDOADMIN 10-23 03:48
PROVIDERS: ADMIT Hospitalist; ATTEND Internal Medicine
PROC: 4A033R1 Measurement of Arterial Saturation, Peripheral, Percutaneous Approach (ICD-10-PCS; 2017-10-23)
PROC: 3E0234Z Introduction of Serum, Toxoid and Vaccine into Muscle, Percutaneous Approach (ICD-10-PCS; principal; 2017-10-24)
DX: O99.53 Diseases of the respiratory system complicating the puerperium (principal); J96.01 Acute respiratory failure with hypoxia; J18.9 Pneumonia, unspecified organism; O11.5 Pre-existing hypertension with pre-eclampsia, complicating the puerperium; O10.93 Unspecified pre-existing hypertension complicating the puerperium; I50.30 Unspecified diastolic (congestive) heart failure; I11.0 Hypertensive heart disease with heart failure; O90.89 Other complications of the puerperium, not elsewhere classified; O88.23 Thromboembolism in the puerperium; O90.3 Peripartum cardiomyopathy; Z23 Encounter for immunization
CPT/HCPCS: 36415; 71010; 71275; 80048; 80053; 81001; 82803; 83615; 83735; 83880; 84484; 84550; 84703; 85025; 85379; 87040; 90732; 93306; 93970; 94640; 96365; 96366; 96367; 96375; J0360; J0456; J0696; J1650; J1940; J2930; J3475; J7050; Q9967

== ENCOUNTER 2019-07-10 15:43 | Inpatient (IN) | payer MEDICAID ==
[2019-07-10] MEDS ORDERED: LACTATED RINGERS 500 ML IV ONE (16:03)
[2019-07-10 17:02] LABS: Bilirubin,Urine NEG (Negative); Blood,Urine NEG (Negative); Color,Urine Straw (Yellow); Mucus,Urine FEW /HPF; Protein,Urine <15 mg/dL mg/dL (Negative); Urobilinogen,Urine < 2.0 mg/dL (<2.0)
[2019-07-10 17:08] LABS: Amphetamine Screen,Urine PRESUMPTIVE NEGATIVE; Benzodiazepines Screen,Urine PRESUMPTIVE NEGATIVE; Cannabinoid Screen,Urine PRESUMPTIVE NEGATIVE; Cocaine Screen,Urine PRESUMPTIVE NEGATIVE; Methadone Screen,Urine PRESUMPTIVE NEGATIVE; Opiate Screen,Urine PRESUMPTIVE NEGATIVE
[2019-07-10 17:09] LABS: Hematocrit 31.6 % (30.3-42.9); Hemoglobin 10.3 gm/dl (10.1-14.3); Mean Corpuscular HGB Conc 33 % (30-34); Mean Corpuscular Volume 80 fl (79-97); Platelet Count 254 K/mm3 (140-440); Red Blood Count 3.93 M/mm3 (3.65-5.03)
[2019-07-10 17:14] LABS: Red Cell Distribution Width 20.2 % (13.2-15.2)
[2019-07-10 17:36] LABS: Alanine Aminotransferase 5 units/L (7-56); Uric Acid 4.5 mg/dL (3.5-7.6)
[2019-07-10] MEDS ORDERED: ZOFRAN IV PRN (17:52)
[2019-07-10] MEDS ORDERED: ALUM-MAG HYDROX-SIMETH 200-200-20MG/5ML PO PRN (17:52)
--- NOTE | 2019-07-10 18:10 | History and Physical Report ---
History of Present Illness Date of examination: 07/10/19 Date of admission: 07/10/19 Chief complaint: SIUP at 24 weeks and 1 day gestation with elevated BP. Previous C/section. History of present illness: Patient is a 34 year old , LMP 01/22/19, EDC 10/29/19 at 24 weeks and 1 day gestation who was sent from the office for elevated BP. She has a history of chronic HTN and has been on lebetolol 200 mg BID. In the office, her BP [id number]/102-119. In the triage, her BP was 168/90. She denies any headache, visual changes or RUQ pain, any contraction, fluid leakage or bleeding. She reports movement. She is co-managed with [facility] for CHTN and advanced maternal age. Past History Past Medical History: hypertension, migraines, other (schizophrenia) Past Surgical History: section, D&C STEMHOLE BORER History: herpes Family/Genetic History: none - Obstetrical History Expected Date of Delivery: 10/29/19 Actual Gestation: 24 Week(s) 1 Day(s) : 7 Para: 5 Hx # Term Pregnancies: 3 Number of Pregnancies: 2 Number of Living Children: 5 Medications and Allergies Allergies Allergy/AdvReac Type Severity Reaction Status Date / Time No Known Allergies Allergy Verified 11/14/13 21:30 Home Medications Medication Instructions Recorded Confirmed Last Taken Type Pnv with Ca,No.72/Iron/FA 1 tab PO DAILY 11/14/13 10/24/17 10/23/17 History [ Plus Tablet] Ferrous Sulfate [Feosol 325 MG tab] 325 mg PO BID #60 tablet 10/08/17 10/24/17 10/23/17 Rx HYDROcodone/APAP 5-325 [[place] 1 each PO Q6HR PRN #30 tablet 10/08/17 10/24/17 10/23/17 Rx 5-325 mg TAB] Labetalol [Labetalol 200mg TAB] 200 mg PO BID #60 tablet 10/08/17 10/24/17 10/23/17 Rx Vit Calc,Iron,Folic 1 each PO DAILY #30 tablet 10/08/17 10/24/17 10/23/17 Rx [ Vitamins] Furosemide [Lasix] 20 mg PO DAILY #30 tablet 12/19/17 Unknown Rx Labetalol [Labetalol 200mg TAB] 300 mg PO BID #60 tablet 10/25/17 Unknown Rx NIFEdipine XL [Procardia Xl] 30 mg PO QDAY #30 tablet 10/25/17 Unknown Rx cephALEXin [Keflex] 500 mg PO Q8HR #15 cap 10/25/17 Unknown Rx hydrALAZINE [Apresoline TAB] 25 mg PO Q8HR #90 tablet 10/25/17 Unknown Rx - Vital Signs Vital signs: Vital Signs Pulse BP 92 H 178/95 07/10/19 16:09 07/10/19 16:09 Temp Pulse Resp BP Pulse Ox 98.3 F 90 20 145/84 98 07/10/19 16:11 07/10/19 16:36 07/10/19 16:11 07/10/19 16:36 07/10/19 16:33 - Physical Exam Cardiovascular: Normal S1, Normal S2 Lungs: Positive: Clear to auscultation Vulva: both: normal Adnexa: both: normal Deep Tendon Reflex Grade: Normal +2 - Obstetrical FHR: category 1 Uterine Contraction Monitor Mode: External Cervical Dilatation: 0 Uterine Contraction Pattern: Absent Results Result Diagrams: 07/10/19 16:26 07/10/19 16:26 Abnormal lab results 07/10/19 07/10/19 Range/Units 16:26 16:26 MCH 26 L (28-32) pg RDW 20.2 H (13.2-15.2) % Creatinine 0.6 L (0.7-1.2) mg/dL ALT 5 L (7-56) units/L All other labs normal. Assessment and Plan - Patient Problems (1) 24 weeks gestation of Current Visit: Yes Status: Acute (2) Pre-eclampsia superimposed on chronic hypertension Current Visit: No Status: Acute Plan to address problem: Admit to labor floor. Toxemia labs are normal. Magnesium sulfate. Monitor Magnesium levels, urine output, DTRs. Monitor BP. Continue labetolol 300 PO BID. Add nefedipine. Celestone for FLM. 24-hr urine for protein and creatinine clearance. monitoring. BPP 8/8, YOVANI 14 cm. NICU and [facility] consults. (3) Previous section Current Visit: Yes Status: Acute (4) Advanced maternal age (AMA) in Current Visit: Yes Status: Acute (5) Late care Current Visit: Yes Status: Acute (6) Anemia Current Visit: Yes Status: Acute Qualifiers: Anemia type: iron deficiency
[2019-07-10] MEDS ORDERED: CELESTONE SOLUSPAN IM SCH (19:00)
--- NOTE | 2019-07-10 19:02 | Ultrasound Report ---
ULTRASOUND BIOPHYSICAL PROFILE AND LIMITED OB ULTRASOUND INDICATION / CLINICAL INFORMATION: Estimated weight. COMPARISON: None available. FINDINGS: BREATHING MOVEMENT = 2 GROSS BODY MOVEMENT = 2 TONE = 2 QUALITATIVE AMNIOTIC FLUID VOLUME = 2 TOTAL BIOPHYSICAL SCORE = 8/8 AMNIOTIC FLUID INDEX (cm) = 11.4 PRESENTATION: Cephalic. HEART RATE (beats per minute): 145 The estimated sonographic gestational age is 24 weeks 3 days with an IRASEMA of 10/27/2019. The estimated weight is 691 +/- 102 g. IMPRESSION: 1. biophysical profile = 8/8 2. The estimated weight is 691 +/- 102 g. Signer Name: Brown Deluca MD Signed: 07/10/2019 6:58 PM Workstation Name: [email or web address]
[2019-07-10] MEDS: MAGNESIUM SULFATE 4GM/100ML 4 GM/100 ML BAG IV ONE ×2 (20:02→20:33)
[2019-07-10] MEDS ORDERED: LACTATED RINGERS 1,000 ML ONE (20:08)
[2019-07-10] MEDS: PROCARDIA XL PO SCH (20:22)
[2019-07-10] MEDS: NORMODYNE PO SCH (23:27)
[2019-07-10] MEDS: MAGNESIUM SULFATE 40GM/1000ML 40 GM/1,000 ML BAG IV SCH (23:27)
[2019-07-11] MEDS: COLACE PO PRN (08:56)
[2019-07-11] MEDS: TYLENOL PO PRN ×2 (08:56→17:57)
--- NOTE | 2019-07-11 09:40 | Progress Note ---
Assessment and Plan - Patient Problems (1) 24 weeks gestation of Current Visit: Yes Status: Acute (2) Pre-eclampsia superimposed on chronic hypertension Current Visit: No Status: Acute Plan to address problem: Continue Magnesium sulfate until 6 PM tonight. Monitor Magnesium levels, urine output, DTRs. Mg level was not done at 12 AM and 6 AM as ordered. STAT Mg level ordered and I called the lab and spoke with Glenda. She will sned someone to draw it now. Monitor BP. Continue labetolol 300 PO BID and nefedipine 30 mg PO QD. Celestone for FLM, second dose due tonight. 24-hr urine for protein and creatinine clearance in progress. Continuous monitoring. NICU and [facility] consults. (3) Previous section Current Visit: Yes Status: Acute (4) Advanced maternal age (AMA) in Current Visit: Yes Status: Acute (5) Late care Current Visit: Yes Status: Acute (6) Anemia Current Visit: Yes Status: Acute Qualifiers: Anemia type: iron deficiency Subjective - Subjective Date of service: 07/11/19 Principal diagnosis: 24 weeks with pre-eclampsia superimposed on CHTN. Interval history: Patient is a 34 year old , LMP 01/22/19, EDC 10/29/19 at 24 weeks and 2 days gestation who was sent from the office yesterday for elevated BP. She has a history of chronic HTN and has been on lebetolol 200 mg BID. In the office, her BP [id number]/102-119. In the triage, her BP was 168/90. She denies any headache, visual changes or RUQ pain, any contraction, fluid leakage or bleeding. She reports movement. She is co-managed with [facility] for CHTN and advanced maternal age. Sonogram showed BPP 8/8, YOVANI 11.4, EFW 691 gm. Her toxemia labs were normal. 24-hr urine is in progress. She is on magnesium sulfate at 2gm/hr, labetolol 300 mg PO BID, nifedipine 30 mg PO QD. Celestone for FLM dose# has been given. Her BP has been stable overnight. This AM, she denies any headache, visual changes or RUQ pain. Mg level was ordered but was not done. Patient's DTRs are normal. Objective - Vital Signs Vital Signs: Vital Signs - 12hr 07/10/19 07/10/19 07/11/19 23:32 23:34 00:38 Temperature Pulse Rate 113 H 106 H 96 H Respiratory Rate Blood Pressure 166/107 138/78 115/62 07/11/19 07/11/19 07/11/19 01:38 02:38 03:38 Temperature Pulse Rate 95 H 100 H 93 H Respiratory Rate Blood Pressure 129/70 130/73 124/76 07/11/19 07/11/19 07/11/19 04:38 05:38 06:38 Temperature Pulse Rate 95 H 97 H 104 H Respiratory Rate Blood Pressure 131/79 127/80 129/67 07/11/19 07/11/19 07/11/19 07:38 08:32 08:38 Temperature 97.7 F Pulse Rate 100 H 102 H Respiratory 20 Rate Blood Pressure 119/57 134/85 - Exam Cardiovascular: Normal S1, Normal S2 Lungs: Clear to auscultation Vulva: both: normal FHR: category 1 Uterine Contraction Monitor Mode: External Uterine Contraction Pattern: Absent Deep Tendon Reflex Grade: Normal +2 - Labs Labs: Abnormal Labs 07/10/19 07/10/19 16:26 16:26 MCH 26 L RDW 20.2 H Creatinine 0.6 L ALT 5 L Laboratory Results - last 24 hr 07/10/19 07/10/19 07/10/19 16:26 16:26 Unknown WBC 6.9 RBC 3.93 Hgb 10.3 Hct 31.6 MCV 80 MCH 26 L MCHC 33 RDW 20.2 H Plt Count 254 Creatinine 0.6 L Estimated GFR > 60 Uric Acid 4.5 AST 12 ALT 5 L Lactate Dehydrogenase 175 Urine Color Straw Urine Turbidity Clear Urine pH 7.0 Ur Specific [place] 1.006 Urine Protein <15 mg/dl Urine Glucose (UA) Neg Urine Ketones Neg Urine Blood Neg Urine Nitrite Neg Urine Bilirubin Neg Urine Urobilinogen < 2.0 Ur Leukocyte Esterase Neg Urine WBC (Auto) 1.0 Urine RBC (Auto) 1.0 U Epithel Cells (Auto) 4.0 Urine Mucus Few Urine Opiates Screen Urine Methadone Screen Ur Barbiturates Screen Ur Phencyclidine Scrn Ur Amphetamines Screen U Benzodiazepines Scrn Urine Cocaine Screen U Marijuana (THC) Screen Drugs of Abuse Note 07/10/19 Unknown WBC RBC Hgb Hct MCV MCH MCHC RDW Plt Count Creatinine Estimated GFR Uric Acid AST ALT Lactate Dehydrogenase Urine Color Urine Turbidity Urine pH Ur Specific [place] Urine Protein Urine Glucose (UA) Urine Ketones Urine Blood Urine Nitrite Urine Bilirubin Urine Urobilinogen Ur Leukocyte Esterase Urine WBC (Auto) Urine RBC (Auto) U Epithel Cells (Auto) Urine Mucus Urine Opiates Screen Presumptive negative Urine Methadone Screen Presumptive negative Ur Barbiturates Screen Presumptive negative Ur Phencyclidine Scrn Presumptive negative Ur Amphetamines Screen Presumptive negative U Benzodiazepines Scrn Presumptive negative Urine Cocaine Screen Presumptive negative U Marijuana (THC) Screen Presumptive negative Drugs of Abuse Note Disclamer - Results US- obstetric: report reviewed
[2019-07-11] MEDS: PRENATAL VITAMIN PO SCH (10:11)
[2019-07-11] MEDS: PROCARDIA XL PO SCH (10:11)
[2019-07-11] MEDS: NORMODYNE PO SCH ×2 (10:12→22:02)
[2019-07-11] MEDS ORDERED: LACTATED RINGERS 1,000 ML ONE (10:19)
--- NOTE | 2019-07-11 10:57 | Consultation ---
Consult Note - Parent Education I met with parent(s) and discussed the following:: Need for NICU admission, Poss ible need for intubation and surfactant or other resp support, Temperature regulation, Head ultrasounds to evaluate IVH, Eye exams for ROP screening, Possible need for IV fluids/TPN and IV antibiotics, Possible need for umbilical lines, Importance of providing breast milk & encouraged pumping aft delivery (Mother would like to breastfeed and is interested in DBM ), Donor breast milk if baby meets criteria after , Slow feeding advancement and monitoring of tolerance. NG/OG feeds, Need to monitor for jaundice, Data for survival & survival without significant co-morbidities Parent(s) demonstrated understanding of all the information:: Yes Assessment and Plan - Assessment Gestation:: 24 Estimated Weight: 691 grams (+/- 102 grams) PER US Baby's gender: Male Baby's name: Elias Additional Comment: 34 YO mother with h/o chronic HTN on labetol and nefedipine. H/o of previous at 32 week and 33 week in the NICU, bipolar, schizophrenia, HSV + on suppression. - Plan Plan: Agree with Mag & steroids Will attend delivery Please call NICU with questions
--- NOTE | 2019-07-11 12:13 | Consultation ---
History of Present Illness Consult date: 07/11/19 Reason for consult: other (Suspected Preeclampsia, CHTN hx) History of present illness: Ms. Mustafa is a 34 year old , IRASEMA 10/29/19 at 24.1 weeks who was sent from primary OB office to [facility] for elevated BP on 07/10/19. She is followed outpatient by [facility] due to CHTN hx, Preeclampsia hx, PTL/D hx, and AMA. Oupatient CHTN management on Labetalol 200mg BID. Initial BPs on admission to [facility] 160s-200s/80s-100s. Since admission, she has been initiated on Labetalol 300mg BID and Nifedipine ER 30mg once daily for antihypertensive management. Magnesium sulfate infusing and she has also received Betamethasone x 1. 24hour urine protein in progress. She denies any headache, visual changes, edema, or RUQ pain. She reports positive movements. She denies contractions, leaking of fluid, and bleeding. 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 [employer] History: herpes Family/Genetic History: none - Obstetrical History : 7 Medications and Allergies Allergies Allergy/AdvReac Type Severity Reaction Status Date / Time No Known Allergies Allergy Verified 11/14/13 21:30 Home Medications Medication Instructions Recorded Confirmed Last Taken Type Vit Calc,Iron,Folic 1 each PO DAILY #30 tablet 10/08/17 10/24/17 07/10/19 09:00 Rx [ Vitamins] Labetalol [Labetalol 200mg TAB] 300 mg PO BID #60 tablet 10/25/17 07/11/19 07/10/19 09:00 Rx 300 MG NIFEdipine XL [Procardia Xl] 30 mg PO QDAY #30 tablet 10/25/17 07/11/19 Unknown Rx Active Meds: Active Medications Acetaminophen (Tylenol) 650 mg PO Q4H PRN PRN Reason: Pain MILD(1-3)/Fever >100.5/MAO Last Admin: 07/11/19 08:56 Dose: 650 mg Documented by: Al Hydrox/Mg Hydrox/Simethicone (Alum-Mag Hydrox-Simeth [id number]/5ml) 30 ml PO Q6H PRN PRN Reason: Indigestion Docusate Sodium (Colace) 100 mg PO Q12H PRN PRN Reason: Constipation Last Admin: 07/11/19 08:56 Dose: 100 mg Documented by: Magnesium Sulfate (Magnesium Sulfate 40gm/1000ml) 40 gm in 1,000 mls @ 50 mls/hr IV DIRECT [facility] Last Admin: 07/10/19 23:27 Dose: 2 gm/hr, 50 mls/hr Documented by: Labetalol HCl (Normodyne) 300 mg PO BID [facility] Last Admin: 07/11/19 10:12 Dose: 300 mg Documented by: Multivitamins/Iron/Calcium ( Vitamin) 1 each PO QDAY [facility] Last Admin: 07/11/19 10:11 Dose: 1 each Documented by: Nifedipine (Procardia Xl) 30 mg PO QDAY [facility] Last Admin: 07/11/19 10:11 Dose: 30 mg Documented by: Ondansetron HCl (Zofran) 4 mg IV Q6H PRN PRN Reason: Nausea And Vomiting Zolpidem Tartrate (Ambien) 5 mg PO QHS PRN PRN Reason: Sleep Review of Systems Constitutional: other (denies fatigue, chills, fever) Eyes: other (denies visual disturbances) Ears, nose, mouth and throat: deferred Cardiovascular: other (denies chest pain, palpitations, edema) Respiratory: other (denies SOB, wheezing, coughing) Breasts: deferred Gastrointestinal: other (denies RUQ pain, diarrhea, constipation, nausea) Genitourinary: other (denies contractions, leaking of fluid, and bleeding) Rectal Exam: deferred Neurological: other (denies headaches) - Vital Signs Vital signs: Vital Signs Pulse BP 92 H 178/95 07/10/19 16:09 07/10/19 16:09 Temp Pulse Resp BP Pulse Ox 97.7 F 96 H 20 137/69 98 07/11/19 08:32 07/11/19 11:38 07/11/19 08:32 07/11/19 11:38 07/10/19 16:33 - Physical Exam Breasts: Positive: deferred Cardiovascular: Regular rate, Normal S1, Normal S2 Lungs: Positive: Clear to auscultation, Normal air movement Abdomen: Positive: soft, other (nontender, gravid) Deep Tendon Reflex Grade: Dull/Diminished +1 Results Result Diagrams: 07/10/19 16:26 07/10/19 16:26 Abnormal lab results 07/10/19 07/10/19 07/11/19 Range/Units 16:26 16:26 09:37 MCH 26 L (28-32) pg RDW 20.2 H (13.2-15.2) % Creatinine 0.6 L (0.7-1.2) mg/dL Magnesium 4.70 H (1.7-2.3) mg/dL ALT 5 L (7-56) units/L All other labs normal. Assessment and Plan A- Savage IUP at 24.1 weeks (IRASEMA 10/29/19) CHTN- managed on Labetalol 300mg BID, Nifedipine ER 30mg once daily VSS- 120s-130s/60s-90s Denies Preeclampsia symptoms 24 hour urine protein pending Plts- 254, AST/ALT 12/5, Uric Acid 4.5, LDH 175 Magneisum Sulfate infusing Betamethasone x1 received, 2nd dose this evening S/P ultrasound- please confirm ultrasound used correct IRASEMA of 10/29/19 S/P NICU consult Preeclampsia hx PTL/D hx history x 2 P- Continue with current plan of care Document 24 hour urine protein results Magnesium Sulfate x 24 hours Complete Betamethasone Aspirin 81mg PO once daily, due to preeclampsia hx With worsening Preeclampsia symptoms and poorly controlled blood pressures, consider delivery. With continued improvement in blood pressures, consider discharge with outpatient management. Thank you for your consult. For any additional questions/concerns, please contact land acquisition analyst ROCCO ARMSTRONG.
[2019-07-11] MEDS: BABY ASPIRIN PO SCH (17:45)
[2019-07-11] MEDS: MAGNESIUM SULFATE 40GM/1000ML 40 GM/1,000 ML BAG IV SCH (20:19)
--- NOTE | 2019-07-12 09:55 | Progress Note ---
Assessment and Plan - Patient Problems (1) 24 weeks gestation of Current Visit: Yes Status: Acute (2) Pre-eclampsia superimposed on chronic hypertension Current Visit: No Status: Acute Plan to address problem: Magnesium sulfate discontinued. Monitor BP. Continue labetolol 300 PO BID and nefedipine 30 mg PO QD. Celestone for FLM completed. 24-hr urine for protein and creatinine clearance in progress. Continuous monitoring. NICU and [facility] consults. (3) Previous section Current Visit: Yes Status: Acute (4) Advanced maternal age (AMA) in Current Visit: Yes Status: Acute (5) Late care Current Visit: Yes Status: Acute (6) Anemia Current Visit: Yes Status: Acute Qualifiers: Anemia type: iron deficiency Subjective - Subjective Date of service: 07/12/19 Principal diagnosis: 24 weeks with pre-eclampsia superimposed on CHTN. Interval history: Patient is a 34 year old , LMP 01/22/19, EDC 10/29/19 at 24 weeks and 3 days gestation who was admitted for elevated BP. She has a history of chronic HTN and has been on lebetolol 200 mg BID. In the office, her BP was 168-190/102-119. In the triage, her BP was 168/90. She denies any headache, visual changes or RUQ pain, any contraction, fluid leakage or bleeding. She reports movement. She is co-managed with [facility] for CHTN and advanced maternal age. Sonogram on admission showed BPP 8/8, YOVNAI 11.4, EFW 691 gm. Her toxemia labs were normal. 24-hr urine is in progress. She was given magnesium sulfate which was discontinued after 24-hrs (07/11), currently on labetolol 300 mg PO BID and nifedipine 30 mg PO QD. Celestone for FLM 2 doses have been given. Her BP has been elevated but stable overnight. This AM, she denies any headache, visual changes or RUQ pain. [facility] and NICU consults were done. Objective - Vital Signs Vital Signs: Vital Signs - 12hr 07/11/19 07/11/19 07/11/19 22:02 22:38 23:38 Temperature Pulse Rate 87 88 91 H Respiratory Rate Blood Pressure 143/80 138/84 133/75 Blood Pressure [Right] 09/03/2507/12/19 07/12/19 00:38 01:38 02:38 Temperature Pulse Rate 98 H 95 H 89 Respiratory Rate Blood Pressure 143/80 131/67 131/74 Blood Pressure [Right] 07/12/19 07/12/19 07/12/19 03:38 04:38 05:38 Temperature Pulse Rate 105 H 95 H 91 H Respiratory Rate Blood Pressure 137/83 138/65 148/76 Blood Pressure [Right] 07/12/19 07/12/19 07/12/19 06:38 07:24 07:26 Temperature Pulse Rate 81 90 107 H Respiratory Rate Blood Pressure 130/78 140/89 143/82 Blood Pressure [Right] 07/12/19 07/12/19 07/12/19 07:27 07:38 09:38 Temperature 98.9 F Pulse Rate 107 H 86 91 H Respiratory 16 Rate Blood Pressure 134/69 169/85 Blood Pressure 143/82 [Right] - Exam Cardiovascular: Normal S1, Normal S2 Lungs: Clear to auscultation Vulva: both: normal FHR: category 1 Uterine Contraction Monitor Mode: External Uterine Contraction Pattern: Absent Deep Tendon Reflex Grade: Normal +2 - Labs Labs: Abnormal Labs 07/10/19 07/10/19 07/11/19 16:26 16:26 09:37 MCH 26 L RDW 20.2 H Creatinine 0.6 L Magnesium 4.70 H ALT 5 L 07/11/19 07/12/19 20:31 00:34 MCH RDW Creatinine Magnesium 4.50 H 2.80 H ALT Laboratory Results - last 24 hr 07/11/19 07/11/19 07/12/19 09:37 20:31 00:34 Magnesium 4.70 H 4.50 H 2.80 H - Results US- obstetric: report reviewed
[2019-07-12] MEDS: NORMODYNE PO SCH ×2 (10:21→22:07)
[2019-07-12] MEDS: PRENATAL VITAMIN PO SCH (10:21)
[2019-07-12] MEDS: PROCARDIA XL PO SCH (10:24)
[2019-07-12] MEDS: BABY ASPIRIN PO SCH (10:25)
--- NOTE | 2019-07-12 12:02 | Ultrasound Report ---
ULTRASOUND BIOPHYSICAL PROFILE INDICATION: pre-eclampsia. COMPARISON: 07/10/2019 FINDINGS: heart rate is 141 beats per minute. breathing movement = 2 Gross body movement = 2 tone = 2 Qualitative amniotic fluid volume = 2 IMPRESSION: biophysical profile = 06/14 Signer Name: Chino Mahan Jr, MD Signed: 07/12/2019 11:57 AM Workstation Name: [id number]
--- NOTE | 2019-07-12 12:07 | Ultrasound Report ---
ULTRASOUND OB VELOCIMETRY UMBILICAL ARTERY HISTORY: Preeclampsia. TECHNIQUE: Transabdominal ultrasound with color and spectral Doppler imaging. COMPARISON: None. FINDINGS: 3 segments of the umbilical cord were evaluated. heart rate measures 139 bpm. The spectral wave forms are normal and persistent. No evidence for loss of end-diastolic flow. The resistive index ave rage measures 0.59. The S/D ratio average measures 2.45. IMPRESSION: Umbilical cord Doppler within normal limits. Signer Name: Chino Mahan Jr, MD Signed: 07/12/2019 12:02 PM Workstation Name: [id number]
--- NOTE | 2019-07-12 13:09 | Progress Note ---
Assessment and Plan A- Savage IUP at 24+ weeks (IRASEMA 10/29/19) CHTN- managed on Labetalol 300mg BID, Nifedipine ER 30mg once daily VSS- 130s-140s/60s-80s Denies Preeclampsia symptoms 24 hour urine protein in progress Plts- 254, AST/ALT 12/5, Uric Acid 4.5, LDH 175 S/P Magneisum Sulfate S/P Betamethasone S/P ultrasound- please confirm ultrasound used correct IRASEMA of 10/29/19 S/P NICU consult Preeclampsia hx PTL/D hx history x 2 P- Continue with current plan of care Document 24 hour urine protein results Complete Betamethasone Aspirin 81mg PO once daily, due to preeclampsia hx With worsening Preeclampsia symptoms and poorly controlled blood pressures, consider delivery. With continued improvement in blood pressures, normal labs and 24H urine, consider discharge tomorrow with outpatient management. Thank you for your consult. For any additional questions/concerns, please contact land commissioner ROCCO ARMSTRONG. Subjective - Subjective Date of service: 07/12/19 Principal diagnosis: 24+ weeks with pre-eclampsia superimposed on CHTN. Patient reports: other (patient denies headache, visual disturbances, epigastric pain, leakage of fluid, vaginal bleeding, contractions.) Objective - Vital Signs Vital Signs: Vital Signs - 12hr 07/12/19 07/12/19 07/12/19 01:38 02:38 03:38 Temperature Pulse Rate 95 H 89 105 H Respiratory Rate Blood Pressure 131/67 131/74 137/83 Blood Pressure [Right] 07/12/19 07/12/19 07/12/19 04:38 05:38 06:38 Temperature Pulse Rate 95 H 91 H 81 Respiratory Rate Blood Pressure 138/65 148/76 130/78 Blood Pressure [Right] 07/12/19 07/12/19 07/12/19 07:24 07:26 07:27 Temperature 98.9 F Pulse Rate 90 107 H 107 H Respiratory 16 Rate Blood Pressure 140/89 143/82 Blood Pressure 143/82 [Right] 07/12/19 07/12/19 07/12/19 07:38 09:38 10:21 Temperature Pulse Rate 86 91 H Respiratory Rate Blood Pressure 134/69 169/85 134/69 Blood Pressure [Right] - Exam Breasts: deferred Cardiovascular: Regular rate Lungs: Normal air movement Abdomen: Present: other (gravid) - Labs Labs: Abnormal Labs 07/10/19 07/10/19 07/11/19 16:26 16:26 09:37 MCH 26 L RDW 20.2 H Creatinine 0.6 L Magnesium 4.70 H ALT 5 L 07/11/19 07/12/19 20:31 00:34 MCH RDW Creatinine Magnesium 4.50 H 2.80 H ALT Laboratory Results - last 24 hr 07/11/19 07/12/19 20:31 00:34 Magnesium 4.50 H 2.80 H
[2019-07-13] MEDS: TYLENOL PO PRN (01:25)
[2019-07-13] MEDS: APRESOLINE IV PRN ×3 (03:37→16:28)
[2019-07-13] MEDS ORDERED: LACTATED RINGERS 1,000 ML ONE (03:53)
[2019-07-13] MEDS: NORMODYNE PO SCH ×2 (09:56→22:07)
[2019-07-13] MEDS: BABY ASPIRIN PO SCH (09:56)
[2019-07-13] MEDS: PRENATAL VITAMIN PO SCH (09:56)
[2019-07-13] MEDS: PROCARDIA XL PO SCH (09:58)
--- NOTE | 2019-07-13 12:26 | Progress Note ---
Assessment and Plan A- Savage IUP at 24.3 weeks (IRASEMA 10/29/19) CHTN- managed on Labetalol 300mg BID, Nifedipine ER 30mg once daily Labile BPs today- 130s-170s/60s-100s Denies Preeclampsia symptoms 24 hour urine protein-210, normal Plts- 254, AST/ALT 12/5, Uric Acid 4.5, LDH 175 (07/10/19) S/P Magneisum Sulfate S/P Betamethasone x 2 S/P NICU consult Preeclampsia hx PTL/D hx history x 2 P- Continue with current plan of care With continued labile BPs, consider Labetalol 400mg BID for CHTN management With worsening Preeclampsia symptoms and poorly controlled blood pressures, consider delivery. With improvement in blood pressures, consider discharge with outpatient management. Thank you for your consult. For any additional questions/concerns, please contact plant protection superintendent ROCCO ARMSTRONG. Subjective - Subjective Date of service: 07/13/19 Principal diagnosis: CHTN Patient reports: other (patient denies headache, visual disturbances, epigastric pain, leakage of fluid, vaginal bleeding, contractions.) Objective - Vital Signs Vital Signs: Vital Signs - 12hr 07/13/19 07/13/19 07/13/19 00:26 01:12 01:26 Temperature Pulse Rate 80 80 80 Respiratory Rate Blood Pressure 148/75 184/107 178/89 Blood Pressure [Left] Blood Pressure [Right] 07/13/19 07/13/19 07/13/19 01:41 01:56 02:11 Temperature Pulse Rate 64 78 83 Respiratory Rate Blood Pressure 175/97 178/100 182/107 Blood Pressure [Left] Blood Pressure [Right] 07/13/19 07/13/19 07/13/19 02:25 02:26 02:41 Temperature Pulse Rate 73 77 Respiratory 20 Rate Blood Pressure 172/98 159/96 Blood Pressure [Left] Blood Pressure [Right] 07/13/19 07/13/19 07/13/19 02:51 02:56 03:11 Temperature Pulse Rate 68 79 80 Respiratory Rate Blood Pressure 161/100 166/101 172/101 Blood Pressure [Left] Blood Pressure [Right] 07/13/19 07/13/19 07/13/19 03:37 03:44 03:52 Temperature Pulse Rate 80 75 86 Respiratory Rate Blood Pressure 172/101 170/92 154/83 Blood Pressure [Left] Blood Pressure [Right] 07/13/19 07/13/19 07/13/19 04:25 04:55 05:25 Temperature Pulse Rate 95 H 96 H 99 H Respiratory Rate Blood Pressure 155/84 164/80 170/90 Blood Pressure [Left] Blood Pressure [Right] 07/13/19 07/13/19 07/13/19 05:45 05:55 06:55 Temperature Pulse Rate 99 H 98 H 99 H Respiratory Rate Blood Pressure 170/90 139/68 143/87 Blood Pressure [Left] Blood Pressure [Right] 07/13/19 07/13/19 07/13/19 07:25 07:55 08:03 Temperature Pulse Rate 96 H 90 90 Respiratory Rate Blood Pressure 154/86 157/78 157/81 Blood Pressure [Left] Blood Pressure [Right] 07/13/19 07/13/19 07/13/19 08:04 09:03 09:56 Temperature 98.1 F Pulse Rate 90 96 H 100 H Respiratory 18 Rate Blood Pressure 144/84 159/83 Blood Pressure [Left] Blood Pressure 157/81 [Right] 07/13/19 07/13/19 09:58 11:33 Temperature 97.4 F L Pulse Rate 96 H 103 H Respiratory 18 Rate Blood Pressure 159/83 141/82 Blood Pressure 141/82 [Left] Blood Pressure [Right] - Exam Breasts: deferred Cardiovascular: Regular rate, Normal S1, Normal S2 Lungs: Clear to auscultation, Normal air movement Abdomen: Present: soft, other (nontender, gravid) - Labs Labs: Abnormal Labs 07/10/19 07/10/19 07/11/19 16:26 16:26 09:37 MCH 26 L RDW 20.2 H Creatinine 0.6 L Magnesium 4.70 H ALT 5 L 07/11/19 07/12/19 20:31 00:34 MCH RDW Creatinine Magnesium 4.50 H 2.80 H ALT
[2019-07-13 13:06] LABS: Creatinine 24 Hour,Urine 1.9 (0.8-2.8); Creatinine,Urine 61.7 mg/dL (0.1-20.0)
--- NOTE | 2019-07-13 16:52 | Progress Note ---
Subjective - Subjective Date of service: 07/13/19 Principal diagnosis: CHTN Interval history: S: At bedside, patient teary, wanting to go home. I explained in detail CHTN and PE, risks to mom and baby to include but not limited to . BP at bedside 183/94 I called for nursing to give Hydralazine 5mg IVPx1 dose stat. Patient and her mother understand plan of care. Patient is w/out complaint currently. No MAO, no BV, no swelling, no contractions, leaking or bleeding. Good movement. Vital Signs - 12hr 07/13/19 07/13/19 07/13/19 04:55 05:25 05:45 Temperature Pulse Rate 96 H 99 H 99 H Respiratory Rate Blood Pressure 164/80 170/90 170/90 Blood Pressure [Left] Blood Pressure [Right] 07/13/19 07/13/19 07/13/19 05:55 06:55 07:25 Temperature Pulse Rate 98 H 99 H 96 H Respiratory Rate Blood Pressure 139/68 143/87 154/86 Blood Pressure [Left] Blood Pressure [Right] 07/13/19 07/13/19 07/13/19 07:55 08:03 08:04 Temperature 98.1 F Pulse Rate 90 90 90 Respiratory 18 Rate Blood Pressure 157/78 157/81 Blood Pressure [Left] Blood Pressure 157/81 [Right] 07/13/19 07/13/19 07/13/19 09:03 09:56 09:58 Temperature Pulse Rate 96 H 100 H 96 H Respiratory Rate Blood Pressure 144/84 159/83 159/83 Blood Pressure [Left] Blood Pressure [Right] 07/13/19 07/13/19 07/13/19 11:33 13:06 14:04 Temperature 97.4 F L Pulse Rate 103 H 99 H 100 H Respiratory 18 Rate Blood Pressure 141/82 171/88 133/81 Blood Pressure 141/82 [Left] Blood Pressure [Right] 07/13/19 07/13/19 07/13/19 15:04 16:04 16:28 Temperature Pulse Rate 96 H 92 H Respiratory Rate Blood Pressure 135/76 184/93 184/93 Blood Pressure [Left] Blood Pressure [Right] PE: vitas as above RRR LCTAB Soft, NT, FH24cm Pelvic deferred Ext: no edema, DTR2/4 bilaterally Active Medications Generic Name Dose Route Start Last Admin Trade Name Freq PRN Reason Stop Dose Admin Acetaminophen 650 mg 07/10/19 17:52 07/13/19 01:25 Tylenol PO 650 mg Q4H PRN Administration Pain MILD(1-3)/Fever >100.5/MAO Al Hydrox/Mg Hydrox/Simethicone 30 ml 07/10/19 17:52 Alum-Mag Hydrox-Simeth [id number]/5ml PO Q6H PRN Indigestion Aspirin 81 mg 07/11/19 15:00 07/13/19 09:56 Baby Aspirin PO 81 mg QDAY NOELLE Administration Docusate Sodium 100 mg 07/10/19 17:52 07/11/19 08:56 Colace PO 100 mg Q12H PRN Administration Constipation Hydralazine HCl 10 mg 07/13/19 03:25 07/13/19 16:28 Apresoline IV 10 mg Q30MIN PRN Administration Blood Pressure Magnesium Sulfate 40 gm in 1,000 mls @ 50 mls/hr 07/10/19 19:00 07/11/19 20:33 Magnesium Sulfate 40gm/1000ml IV Infused DIRECT NOELLE Infusion 2 GM/HR Labetalol HCl 300 mg 07/10/19 22:00 07/13/19 09:56 Normodyne PO 300 mg BID NOELLE Administration Multivitamins/Iron/Calcium 1 each 07/11/19 10:00 07/13/19 09:56 Vitamin PO 1 each QDAY NOELLE Administration Nifedipine 30 mg 07/10/19 19:00 07/13/19 09:58 Procardia Xl PO 30 mg QDAY NOELLE Administration Ondansetron HCl 4 mg 07/10/19 17:52 Zofran IV Q6H PRN Nausea And Vomiting Zolpidem Tartrate 5 mg 07/10/19 17:52 Ambien PO QHS PRN Sleep Abnormal Lab Results 07/12/19 Unknown Urine Total Volume 3000 Urine Creatinine 61.7 H Ur Creatinine 24 Hour 1.9 Ur Total Protein 24 Hr 210.00 H Urine Total Protein 7 A: CHTN with suspected Superimposed Pre-eclampsia P: Hydralazine 5mgx1 dose, monitor BP closely. Continue to be labile on Labetalol 300mg BID and Nifedipine 30mg QD, consider increase to 400mg BID in AM if labile overnight. Overall status reassuring for gestational age. Appreciate MFM recommendations. Monitor closely, overall maternal status stable. Christel Alcantar MD Patient reports: other (patient denies headache, visual disturbances, epigastric pain, leakage of fluid, vaginal bleeding, contractions.) Objective - Vital Signs Vital Signs: Vital Signs - 12hr 07/13/19 07/13/19 07/13/19 04:55 05:25 05:45 Temperature Pulse Rate 96 H 99 H 99 H Respiratory Rate Blood Pressure 164/80 170/90 170/90 Blood Pressure [Left] Blood Pressure [Right] 07/13/19 07/13/19 07/13/19 05:55 06:55 07:25 Temperature Pulse Rate 98 H 99 H 96 H Respiratory Rate Blood Pressure 139/68 143/87 154/86 Blood Pressure [Left] Blood Pressure [Right] 07/13/19 07/13/19 07/13/19 07:55 08:03 08:04 Temperature 98.1 F Pulse Rate 90 90 90 Respiratory 18 Rate Blood Pressure 157/78 157/81 Blood Pressure [Left] Blood Pressure 157/81 [Right] 07/13/19 07/13/19 07/13/19 09:03 09:56 09:58 Temperature Pulse Rate 96 H 100 H 96 H Respiratory Rate Blood Pressure 144/84 159/83 159/83 Blood Pressure [Left] Blood Pressure [Right] 07/13/19 07/13/19 07/13/19 11:33 13:06 14:04 Temperature 97.4 F L Pulse Rate 103 H 99 H 100 H Respiratory 18 Rate Blood Pressure 141/82 171/88 133/81 Blood Pressure 141/82 [Left] Blood Pressure [Right] 07/13/19 07/13/19 07/13/19 15:04 16:04 16:28 Temperature Pulse Rate 96 H 92 H Respiratory Rate Blood Pressure 135/76 184/93 184/93 Blood Pressure [Left] Blood Pressure [Right] - Labs Labs: Abnormal Labs 07/10/19 07/10/19 07/11/19 16:26 16:26 09:37 MCH 26 L RDW 20.2 H Creatinine 0.6 L Magnesium 4.70 H ALT 5 L Urine Creatinine Ur Total Protein 24 Hr 07/11/19 07/12/19 07/12/19 20:31 00:34 Unknown MCH RDW Creatinine Magnesium 4.50 H 2.80 H ALT Urine Creatinine 61.7 H Ur Total Protein 24 Hr 210.00 H Laboratory Results - last 24 hr 07/12/19 Unknown Urine Total Volume 3000 Urine Creatinine 61.7 H Ur Creatinine 24 Hour 1.9 Ur Total Protein 24 Hr 210.00 H Urine Total Protein 7
[2019-07-13] MEDS: AMBIEN PO PRN (22:07)
[2019-07-14] MEDS: APRESOLINE IV PRN ×3 (06:12→23:00)
--- NOTE | 2019-07-14 07:22 | Progress Note ---
Subjective - Subjective Date of service: 07/14/19 Principal diagnosis: CHTN Interval history: S: Patient doing well, BP's 180/90's. AAOx3 at bedside. Patient is w/out complaint currently. No MAO, no BV, no swelling, no contractions, leaking or bleeding. Good movement. Vital Signs - 24 hr 07/13/19 07/13/19 07/13/19 07:25 07:55 08:03 Temperature Pulse Rate 96 H 90 90 Respiratory Rate Blood Pressure 154/86 157/78 157/81 Blood Pressure [Left] Blood Pressure [Right] 07/13/19 07/13/19 07/13/19 08:04 09:03 09:56 Temperature 98.1 F Pulse Rate 90 96 H 100 H Respiratory 18 Rate Blood Pressure 144/84 159/83 Blood Pressure [Left] Blood Pressure 157/81 [Right] 07/13/19 07/13/19 07/13/19 09:58 11:33 13:06 Temperature 97.4 F L Pulse Rate 96 H 103 H 99 H Respiratory 18 Rate Blood Pressure 159/83 141/82 171/88 Blood Pressure 141/82 [Left] Blood Pressure [Right] 07/13/19 07/13/19 07/13/19 14:04 15:04 16:04 Temperature Pulse Rate 100 H 96 H 92 H Respiratory Rate Blood Pressure 133/81 135/76 184/93 Blood Pressure [Left] Blood Pressure [Right] 07/13/19 07/13/19 07/13/19 16:28 16:53 17:08 Temperature Pulse Rate 108 H 102 H Respiratory Rate Blood Pressure 184/93 181/106 147/79 Blood Pressure [Left] Blood Pressure [Right] 07/13/19 07/13/19 07/13/19 17:22 17:37 17:52 Temperature Pulse Rate 102 H 108 H 109 H Respiratory Rate Blood Pressure 146/80 158/88 150/80 Blood Pressure [Left] Blood Pressure [Right] 07/13/19 07/13/19 07/13/19 18:08 18:23 18:52 Temperature Pulse Rate 116 H 109 H 115 H Respiratory Rate Blood Pressure 155/87 145/78 142/88 Blood Pressure [Left] Blood Pressure [Right] 07/13/19 07/13/19 07/13/19 19:07 19:22 19:38 Temperature Pulse Rate 98 H 98 H 99 H Respiratory Rate Blood Pressure 144/86 152/91 141/70 Blood Pressure [Left] Blood Pressure [Right] 07/13/19 07/13/19 07/13/19 19:52 20:07 20:22 Temperature Pulse Rate 102 H 98 H 100 H Respiratory Rate Blood Pressure 143/79 133/71 136/75 Blood Pressure [Left] Blood Pressure [Right] 07/13/19 07/13/19 07/13/19 20:27 20:30 22:07 Temperature 96.3 F L Pulse Rate 93 H 93 H 93 H Respiratory 18 Rate Blood Pressure 142/74 142/74 Blood Pressure [Left] Blood Pressure 142/74 [Right] 07/14/19 07/14/19 07/14/19 00:12 05:56 06:06 Temperature 96.2 F L Pulse Rate 90 85 85 Respiratory 18 Rate Blood Pressure 139/69 178/99 174/98 Blood Pressure [Left] Blood Pressure 139/69 [Right] 07/14/19 07/14/19 07/14/19 06:12 06:19 06:20 Temperature 96.8 F L Pulse Rate 85 89 90 Respiratory 18 Rate Blood Pressure 174/98 182/85 167/96 Blood Pressure [Left] Blood Pressure 174/98 [Right] 07/14/19 07/14/19 06:27 06:40 Temperature Pulse Rate 88 89 Respiratory Rate Blood Pressure 166/89 157/87 Blood Pressure [Left] Blood Pressure [Right] Vitals as above RRR LCTAB Soft, NT, FH24cm Pelvic deferred Ext: no edema, DTR2/4 bilaterally Active Medications Generic Name Dose Route Start Last Admin Trade Name Dallasq PRN Reason Stop Dose Admin Acetaminophen 650 mg 07/10/19 17:52 07/13/19 01:25 Tylenol PO 650 mg Q4H PRN Administration Pain MILD(1-3)/Fever >100.5/MAO Al Hydrox/Mg Hydrox/Simethicone 30 ml 07/10/19 17:52 Alum-Mag Hydrox-Simeth [id number]/5ml PO Q6H PRN Indigestion Aspirin 81 mg 07/11/19 15:00 07/13/19 09:56 Baby Aspirin PO 81 mg QDAY NOELLE Administration Docusate Sodium 100 mg 07/10/19 17:52 09/04/19 08:56 Colace PO 100 mg Q12H PRN Administration Constipation Hydralazine HCl 10 mg 07/13/19 03:25 07/13/19 16:28 Apresoline IV 10 mg Q30MIN PRN Administration Blood Pressure Magnesium Sulfate 40 gm in 1,000 mls @ 50 mls/hr 07/10/19 19:00 07/11/19 20:33 Magnesium Sulfate 40gm/1000ml IV Infused DIRECT NOELLE Infusion 2 GM/HR Labetalol HCl 300 mg 07/10/19 22:00 07/13/19 09:56 Normodyne PO 300 mg BID NOELLE Administration Multivitamins/Iron/Calcium 1 each 07/11/19 10:00 07/13/19 09:56 Vitamin PO 1 each QDAY NOELLE Administration Nifedipine 30 mg 07/10/19 19:00 07/13/19 09:58 Procardia Xl PO 30 mg QDAY NOELLE Administration Ondansetron HCl 4 mg 07/10/19 17:52 Zofran IV Q6H PRN Nausea And Vomiting Zolpidem Tartrate 5 mg 07/10/19 17:52 Ambien PO QHS PRN Sleep Abnormal Lab Results 07/12/19 Unknown Urine Total Volume 3000 Urine Creatinine 61.7 H Ur Creatinine 24 Hour 1.9 Ur Total Protein 24 Hr 210.00 H Urine Total Protein 7 A: CHTN with suspected Superimposed Pre-eclampsia P: BP's continue to be elevated 160-178/98 Continue to be labile on Labetalol 300mg BID and Nifedipine 30mg QD, will increase Labetalol to 400mg BID. Overall status reassuring for gestational age. Appreciate [facility] recommendations. Monitor closely, overall maternal status stable. Christel Alcantar MD Patient reports: other (patient denies headache, visual disturbances, epigastric pain, leakage of fluid, vaginal bleeding, contractions.) Objective - Vital Signs Vital Signs: Vital Signs - 12hr 07/13/19 07/13/19 07/13/19 19:22 19:38 19:52 Temperature Pulse Rate 98 H 99 H 102 H Respiratory Rate Blood Pressure 152/91 141/70 143/79 Blood Pressure [Right] 07/13/19 07/13/19 07/13/19 20:07 20:22 20:27 Temperature Pulse Rate 98 H 100 H 93 H Respiratory Rate Blood Pressure 133/71 136/75 142/74 Blood Pressure [Right] 07/13/19 07/13/19 07/14/19 20:30 22:07 00:12 Temperature 96.3 F L 96.2 F L Pulse Rate 93 H 93 H 90 Respiratory 18 18 Rate Blood Pressure 142/74 139/69 Blood Pressure 142/74 139/69 [Right] 07/14/19 07/14/19 07/14/19 05:56 06:06 06:12 Temperature 96.8 F L Pulse Rate 85 85 85 Respiratory 18 Rate Blood Pressure 178/99 174/98 174/98 Blood Pressure 174/98 [Right] 07/14/19 07/14/19 07/14/19 06:19 06:20 06:27 Temperature Pulse Rate 89 90 88 Respiratory Rate Blood Pressure 182/85 167/96 166/89 Blood Pressure [Right] 07/14/19 06:40 Temperature Pulse Rate 89 Respiratory Rate Blood Pressure 157/87 Blood Pressure [Right] - Labs Labs: Abnormal Labs 07/10/19 07/10/19 07/11/19 16:26 16:26 09:37 MCH 26 L RDW 20.2 H Creatinine 0.6 L Magnesium 4.70 H ALT 5 L Urine Creatinine Ur Total Protein 24 Hr 07/11/19 07/12/19 07/12/19 20:31 00:34 Unknown MCH RDW Creatinine Magnesium 4.50 H 2.80 H ALT Urine Creatinine 61.7 H Ur Total Protein 24 Hr 210.00 H Laboratory Results - last 24 hr 07/12/19 Unknown Urine Total Volume 3000 Urine Creatinine 61.7 H Ur Creatinine 24 Hour 1.9 Ur Total Protein 24 Hr 210.00 H Urine Total Protein 7
[2019-07-14] MEDS: BABY ASPIRIN PO SCH (10:37)
[2019-07-14] MEDS: NORMODYNE PO SCH ×2 (10:38→21:30)
[2019-07-14] MEDS: PRENATAL VITAMIN PO SCH (10:38)
[2019-07-14] MEDS: TYLENOL PO PRN (10:39)
[2019-07-14] MEDS: PROCARDIA XL PO SCH (10:39)
[2019-07-14] MEDS: COLACE PO PRN (10:39)
[2019-07-14 14:16] LABS: Hematocrit 31.8 % (30.3-42.9); Hemoglobin 10.4 gm/dl (10.1-14.3); Mean Corpuscular HGB Conc 33 % (30-34); Mean Corpuscular Volume 81 fl (79-97); Platelet Count 252 K/mm3 (140-440); Red Blood Count 3.91 M/mm3 (3.65-5.03)
[2019-07-14 14:36] LABS: Alanine Aminotransferase 8 units/L (7-56); Albumin 3.3 g/dL (3.9-5); BUN/Creatinine Ratio 20; Blood Urea Nitrogen 10 mg/dL (7-17); Calcium 9.1 mg/dL (8.4-10.2); Hemolysis Index 3
[2019-07-14] MEDS: AMBIEN PO PRN (21:38)
[2019-07-15] MEDS: BABY ASPIRIN PO SCH (09:59)
[2019-07-15] MEDS: PRENATAL VITAMIN PO SCH (09:59)
[2019-07-15] MEDS: PROCARDIA XL PO SCH (09:59)
[2019-07-15] MEDS: NORMODYNE PO SCH ×2 (09:59→21:07)
--- NOTE | 2019-07-15 11:55 | Progress Note ---
Assessment and Plan - Patient Problems (1) 24 weeks gestation of Onset Date: 07/15/19 Current Visit: Yes Status: Acute Plan to address problem: A: IUP @ 24 6/7 weeks CHTN- managed on Labetalol 400mg BID, Nifedipine ER 30mg once daily Labile BPs today- 130s-170s/60s-100s Denies Preeclampsia symptoms 24 hour urine protein-210, normal Plts- 254, AST/ALT 12/5, Uric Acid 4.5, LDH 175 (07/10/19) S/P Magneisum Sulfate S/P Betamethasone x 2 S/P NICU consult Preeclampsia hx PTL/D hx history x 2 P: Continue present management as per [facility] With worsening Preeclampsia symptoms and poorly controlled blood pressures, consider delivery. (2) Advanced maternal age (AMA) in Onset Date: 07/15/19 Current Visit: Yes Status: Chronic (3) Previous section Onset Date: 07/15/19 Current Visit: Yes Status: Chronic Subjective - Subjective Date of service: 07/15/19 Principal diagnosis: IUP @ 24 6/7 weeks; Chronic hypertension; Previous C/S x 2 Interval history: Patient is a 34 year old black female , LMP 01/22/19, EDC 10/29/19 at 24 6/7 weeks gestation who was sent from the office for elevated BP. She has a history of chronic HTN and has been on labetolol 200 mg BID. In the office, her BP [id number]/102-119. In the triage, her BP was 168/90. She denied any headache, visual changes or RUQ pain, any contraction, fluid leakage or bleeding. She reports movement. She is co-managed with [facility] for CHTN and advanced maternal age. Sonogram showed BPP 8/8, YOVANI 11.4, EFW 691 gm. Her toxemia labs were normal. 24-hr urine was 210mg She is s/p IV Magnesium sulfate; s/p Steroids and currently on Labetolol 400 mg PO BID, Nifedipine 30 mg PO QD. Her BP has been stable overnight except for elevated 142/102 @ 0529. This AM, she denies any headache, visual changes or RUQ pain. Patient reports: movement normal, other (patient denies headache, visual disturbances, epigastric pain, leakage of fluid, vaginal bleeding, contractions.), no new complaints, no loss of fluid, no vaginal bleeding, no contractions Objective - Vital Signs Vital Signs: Vital Signs - 12hr 07/14/19 07/15/19 07/15/19 23:58 00:08 00:18 Temperature Pulse Rate 104 H 103 H 108 H Respiratory Rate Blood Pressure 168/100 172/98 179/93 07/15/19 07/15/19 07/15/19 00:28 00:59 01:29 Temperature Pulse Rate 105 H 106 H 106 H Respiratory Rate Blood Pressure 165/92 139/65 136/63 07/15/19 07/15/19 07/15/19 01:59 02:29 02:59 Temperature Pulse Rate 100 H 99 H 105 H Respiratory Rate Blood Pressure 133/70 132/66 138/72 07/15/19 07/15/19 07/15/19 03:29 03:59 04:29 Temperature Pulse Rate 107 H 98 H 107 H Respiratory Rate Blood Pressure 178/88 137/75 195/101 07/15/19 07/15/19 07/15/19 04:59 05:29 05:37 Temperature Pulse Rate 100 H 105 H 96 H Respiratory Rate Blood Pressure 165/86 142/102 147/87 07/15/19 07/15/19 07/15/19 05:59 06:29 07:44 Temperature Pulse Rate 95 H 100 H 87 Respiratory Rate Blood Pressure 157/90 165/89 149/86 07/15/19 07/15/19 07/15/19 07:45 09:59 10:45 Temperature Pulse Rate 99 H 93 H Respiratory 18 Rate Blood Pressure 146/95 190/98 07/15/19 07/15/19 07/15/19 10:46 10:48 11:02 Temperature 98.2 F Pulse Rate 96 H 87 Respiratory 18 Rate Blood Pressure 167/90 137/81 07/15/19 07/15/19 11:16 11:32 Temperature Pulse Rate 94 H 90 Respiratory Rate Blood Pressure 142/75 136/77 - Exam Uterus: Present: normal FHR: category 1 Uterine Contraction Pattern: Absent - Labs Labs: Abnormal Labs 07/10/19 07/10/19 07/11/19 16:26 16:26 09:37 MCH 26 L RDW 20.2 H Potassium Creatinine 0.6 L Glucose Magnesium 4.70 H ALT 5 L Albumin Urine Creatinine Ur Total Protein 24 Hr 07/11/19 07/12/19 07/12/19 20:31 00:34 Unknown MCH RDW Potassium Creatinine Glucose Magnesium 4.50 H 2.80 H ALT Albumin Urine Creatinine 61.7 H Ur Total Protein 24 Hr 210.00 H 07/14/19 07/14/19 13:57 13:57 MCH 27 L RDW 20.0 H Potassium 3.3 L Creatinine 0.5 L Glucose 110 H Magnesium ALT Albumin 3.3 L Urine Creatinine Ur Total Protein 24 Hr Laboratory Results - last 24 hr 07/14/19 07/14/19 07/14/19 13:57 13:57 13:57 WBC 8.6 RBC 3.91 Hgb 10.4 Hct 31.8 MCV 81 MCH 27 L MCHC 33 RDW 20.0 H Plt Count 252 Sodium 137 Potassium 3.3 L Chloride 102.2 Carbon Dioxide 22 Anion Gap 16 BUN 10 Creatinine 0.5 L Estimated GFR > 60 BUN/Creatinine Ratio 20 Glucose 110 H Uric Acid 4.0 Calcium 9.1 Total Bilirubin < 0.20 AST 10 ALT 8 Alkaline Phosphatase 47 Total Protein 6.5 Albumin 3.3 L Albumin/Globulin Ratio 1.0
[2019-07-15] MEDS ORDERED: AMBIEN ONE (22:54)
[2019-07-15] MEDS ORDERED: AMBIEN PO PRN (23:45)
[2019-07-16] MEDS: NORMODYNE PO SCH (10:29)
[2019-07-16] MEDS: BABY ASPIRIN PO SCH (10:31)
[2019-07-16] MEDS: PROCARDIA XL PO SCH (10:31)
[2019-07-16] MEDS: PRENATAL VITAMIN PO SCH (10:31)
[2019-07-16 13:18] VITALS: BP 137/77
--- NOTE | 2019-07-16 13:39 | Progress Note ---
Assessment and Plan - Patient Problems (1) 24 weeks gestation of Onset Date: 07/15/19 Current Visit: Yes Status: Acute (2) Pre-eclampsia superimposed on chronic hypertension Current Visit: No Status: Acute Plan to address problem: S/P Magnesium sulfate and Celestone. Dr. Nagel from [facility] saw the patient and recommended discharging home today. She has appointment to F/U with [facility] on 07/19 and with [facility] in 2 days. Toxemia precautions were given to her. She will monitor BP. Continue labetolol 400 PO BID and nefedipine 30 mg PO QD as outpatient. (3) Previous section Onset Date: 07/15/19 Current Visit: Yes Status: Chronic (4) Advanced maternal age (AMA) in Onset Date: 07/15/19 Current Visit: Yes Status: Chronic (5) Late care Current Visit: Yes Status: Acute (6) Anemia Current Visit: Yes Status: Acute Qualifiers: Anemia type: iron deficiency Subjective - Subjective Date of service: 07/16/19 Principal diagnosis: IUP @ 24 6/7 weeks; Chronic hypertension; Previous C/S x 2 Interval history: Patient is a 34 year old , LMP 01/22/19, EDC 10/29/19 at 24 weeks and 6 days gestation who was admitted for elevated BP. She has a history of chronic HTN and has been on lebetolol 200 mg BID. In the office, her BP was 168-190/102- 119. In the triage, her BP was 168/90. She denies any headache, visual changes or RUQ pain, any contraction, fluid leakage or bleeding. She reports movement. She is co-managed with [facility] for CHTN and advanced maternal age. Sonogram on admission showed BPP 8/8, YOVANI 11.4, EFW 691 gm. Her toxemia labs were normal. 24-hr urine protein was 210. S/P magnesium sulfate on 07/11, currently on labetolol 400 mg PO BID and nifedipine 30 mg PO QD. Celestone for FLM 2 doses have been given. Her BP has been elevated but stable in the 130's/70's for the most part. This AM, she denies any headache, visual changes or RUQ pain. She reports movement. [facility] and NICU consults were done. Patient reports: movement normal, other (patient denies headache, visual disturbances, epigastric pain, leakage of fluid, vaginal bleeding, contractions.), no new complaints, no loss of fluid, no vaginal bleeding, no contractions Objective - Vital Signs Vital Signs: Vital Signs - 12hr 07/16/19 07/16/19 07/16/19 01:43 02:13 02:43 Temperature Pulse Rate 96 H 95 H 98 H Blood Pressure 127/74 143/85 154/82 07/16/19 07/16/19 07/16/19 03:13 03:43 04:13 Temperature Pulse Rate 88 96 H 96 H Blood Pressure 155/82 133/77 155/95 07/16/19 07/16/19 07/16/19 04:43 05:13 05:43 Temperature Pulse Rate 100 H 88 93 H Blood Pressure 132/81 152/90 150/86 07/16/19 07/16/19 07/16/19 06:13 06:43 07:13 Temperature Pulse Rate 90 99 H 90 Blood Pressure 144/84 134/86 160/88 07/16/19 07/16/19 07/16/19 07:35 07:36 07:43 Temperature Pulse Rate 86 85 87 Blood Pressure 177/99 150/84 151/88 07/16/19 07/16/19 07/16/19 08:13 08:43 09:13 Temperature Pulse Rate 86 87 86 Blood Pressure 160/83 168/104 150/92 07/16/19 07/16/19 07/16/19 09:43 10:13 10:20 Temperature 99.4 F Pulse Rate 88 87 Blood Pressure 141/78 142/82 07/16/19 07/16/19 07/16/19 10:29 10:31 11:33 Temperature Pulse Rate 93 H 90 91 H Blood Pressure 178/109 159/86 142/89 07/16/19 07/16/19 07/16/19 12:08 12:09 12:33 Temperature Pulse Rate 98 H 97 H 95 H Blood Pressure 163/100 134/74 134/79 07/16/19 13:17 Temperature Pulse Rate 96 H Blood Pressure 137/77 - Exam Cardiovascular: Normal S1, Normal S2 Lungs: Clear to auscultation Vulva: both: normal FHR: category 1 Uterine Contraction Monitor Mode: External Uterine Contraction Pattern: Absent Deep Tendon Reflex Grade: Normal +2 - Labs Labs: Abnormal Labs 07/10/19 07/10/19 07/11/19 16:26 16:26 09:37 MCH 26 L RDW 20.2 H Potassium Creatinine 0.6 L Glucose Magnesium 4.70 H ALT 5 L Albumin Urine Creatinine Ur Total Protein 24 Hr 07/11/19 07/12/19 07/12/19 20:31 00:34 Unknown MCH RDW Potassium Creatinine Glucose Magnesium 4.50 H 2.80 H ALT Albumin Urine Creatinine 61.7 H Ur Total Protein 24 Hr 210.00 H 07/14/19 07/14/19 13:57 13:57 MCH 27 L RDW 20.0 H Potassium 3.3 L Creatinine 0.5 L Glucose 110 H Magnesium ALT Albumin 3.3 L Urine Creatinine Ur Total Protein 24 Hr - Results US- obstetric: report reviewed
--- NOTE | 2019-07-16 13:46 | Consultation ---
History of Present Illness Consult date: 07/16/19 Requesting physician: KARLA HOWE History of present illness: [facility] MFM 07/16/19 Followed for CHTN with labile BP's Denies MAO's [place] or RUQ Pain Denies Swelling Labs 05/15/19 Plts at 254 AST/ALT at 12/5 UA at 4.5 24 Hour Urine at 210 BP's high 163/100 per nurse most recent sitting up at 137/77 BP's better controlled Abd gravid nt no ruq pain ext NT , no edema, DTR 1-2/4 and no clonus Past History Past Medical History: hypertension, migraines, other (schizophrenia) Past Surgical History: section, D&C [employer] History: herpes Family/Genetic History: none - Obstetrical History : 7 Medications and Allergies Allergies Allergy/AdvReac Type Severity Reaction Status Date / Time No Known Allergies Allergy Verified 11/14/13 21:30 Home Medications Medication Instructions Recorded Confirmed Last Taken Type Vit Calc,Iron,Folic 1 each PO DAILY #30 tablet 10/08/17 07/12/19 07/10/19 09:00 Rx [ Vitamins] Labetalol [Labetalol 200mg TAB] 300 mg PO BID #60 tablet 10/25/17 07/11/19 07/10/19 09:00 Rx 300 MG NIFEdipine XL [Procardia Xl] 30 mg PO QDAY #30 tablet 10/25/17 07/11/19 Unknown Rx Active Meds: Active Medications Acetaminophen (Tylenol) 650 mg PO Q4H PRN PRN Reason: Pain MILD(1-3)/Fever >100.5/MAO Last Admin: 07/14/19 10:39 Dose: 650 mg Documented by: Al Hydrox/Mg Hydrox/Simethicone (Alum-Mag Hydrox-Simeth [id number]/5ml) 30 ml PO Q6H PRN PRN Reason: Indigestion Aspirin (Baby Aspirin) 81 mg PO QDAY NOELLE Last Admin: 07/16/19 10:31 Dose: 81 mg Documented by: Docusate Sodium (Colace) 100 mg PO Q12H PRN PRN Reason: Constipation Last Admin: 07/14/19 10:39 Dose: 100 mg Documented by: Hydralazine HCl (Apresoline) 10 mg IV Q30MIN PRN PRN Reason: Blood Pressure Last Admin: 07/14/19 23:00 Dose: 10 mg Documented by: Magnesium Sulfate (Magnesium Sulfate 40gm/1000ml) 40 gm in 1,000 mls @ 50 mls/hr IV DIRECT [facility] Last Infusion: 07/11/19 20:33 Dose: Infused Documented by: Labetalol HCl (Normodyne) 400 mg PO BID [facility] Last Admin: 07/16/19 10:29 Dose: 400 mg Documented by: Multivitamins/Iron/Calcium ( Vitamin) 1 each PO QDAY [facility] Last Admin: 07/16/19 10:31 Dose: 1 each Documented by: Nifedipine (Procardia Xl) 30 mg PO QDAY [facility] Last Admin: 07/16/19 10:31 Dose: 30 mg Documented by: Ondansetron HCl (Zofran) 4 mg IV Q6H PRN PRN Reason: Nausea And Vomiting Zolpidem Tartrate (Ambien) 5 mg PO QHS PRN PRN Reason: Sleep - Vital Signs Vital signs: Vital Signs Pulse BP 92 H 178/95 07/10/19 16:09 07/10/19 16:09 Temp Pulse Resp BP Pulse Ox 99.4 F 96 H 16 137/77 98 07/16/19 10:20 07/16/19 13:17 07/15/19 20:45 07/16/19 13:17 07/10/19 16:33 Results Result Diagrams: 07/14/19 13:57 07/14/19 13:57 All other labs normal. Assessment and Plan Impression 1. [place] IUP at 24 6/7 weeks 2. CHTN On Labetalol and Nifedipine 3. Asymptomatic 4. Occ Labile BP 5. S/P Steroids and Mg 6. Prior C/S X 2 7. Mild Anemia 8. MO Recommendations 1. Discussed [facility] Dr. Howe 2. May discharge home (patient wants to go home and has help at home) with [facility] instructions - call for S/S of [facility] or DFM's 3. To Follow up with [facility] later this week () 4. [facility] labs q 1 to 2 weeks 5. Iron BID 6. Restricted activity 7. Get BP's taken at least twice a week with BP machine or at [facility]
== END 2019-07-16 14:45 | disposition home or self-care (01) | DRG 781 ==
LOC: TRG 15:43 → LD 17:53 → TRG 17:53 → OBSVTOIN 17:53 → LD 18:36
PROVIDERS: ADMIT Obstetrics & Gynecology; ATTEND Obstetrics & Gynecology
DX: O11.2 Pre-existing hypertension with pre-eclampsia, second trimester (principal); Z3A.24 24 weeks gestation of pregnancy; O99.352 Diseases of the nervous system complicating pregnancy, second trimester; O99.012 Anemia complicating pregnancy, second trimester; D50.9 Iron deficiency anemia, unspecified; O99.212 Obesity complicating pregnancy, second trimester; E66.01 Morbid (severe) obesity due to excess calories; G43.909 Migraine, unspecified, not intractable, without status migrainosus
CPT/HCPCS: 36415; 76816; 76819; 76820; 80053; 80307; 81001; 82565; 82570; 83615; 83735; 84156; 84450; 84460; 84550; 85027; G0378; J0360; J0702; J3475; J7120

== ENCOUNTER 2019-09-14 12:30 | Observation (INO) | payer MEDICAID ==
[2019-09-14] MEDS ORDERED: ACETAMINOPHEN 325 MG TAB PO PRN ×2 (12:37→18:10)
[2019-09-14] MEDS ORDERED: DOCUSATE SODIUM 100 MG CAP PO PRN ×2 (12:37→18:10)
[2019-09-14] MEDS ORDERED: LACTATED RINGERS 1,000 ML IV SCH (13:00)
[2019-09-14 14:23] LABS: Bilirubin,Urine NEG (Negative); Blood,Urine NEG (Negative); Color,Urine Straw (Yellow); Mucus,Urine FEW /HPF; Protein,Urine <15 mg/dL mg/dL (Negative); Urobilinogen,Urine < 2.0 mg/dL (<2.0)
[2019-09-14 14:39] LABS: Basophils % (Auto) 0.2 % (0.0-1.8); Eosinophils # (Auto) 0.1 K/mm3 (0.0-0.4); Eosinophils % (Auto) 0.8 % (0.0-4.3); Hematocrit 32.2 % (30.3-42.9); Hemoglobin 10.7 gm/dl (10.1-14.3); Lymphocytes # (Auto) 1.3 K/mm3 (1.2-5.4); Lymphocytes % (Auto) 17.5 % (13.4-35.0); Mean Corpuscular HGB Conc 33 % (30-34); Mean Corpuscular Volume 81 fl (79-97); Monocytes # (Auto) 0.7 K/mm3 (0.0-0.8); Platelet Count 260 K/mm3 (140-440); Red Blood Count 3.99 M/mm3 (3.65-5.03); Red Cell Distribution Width 16.2 % (13.2-15.2)
[2019-09-14 15:06] LABS: Alanine Aminotransferase 5 units/L (7-56); Albumin 3.3 g/dL (3.9-5); BUN/Creatinine Ratio 8; Blood Urea Nitrogen 3 mg/dL (7-17); Calcium 8.8 mg/dL (8.4-10.2); Hemolysis Index 17; Uric Acid 3.9 mg/dL (3.5-7.6)
[2019-09-14] MEDS ORDERED: hydrALAZINE 20 MG/1 ML INJ IV PRN (18:02)
--- NOTE | 2019-09-14 20:44 | History and Physical Report ---
History of Present Illness Date of examination: 09/14/19 Date of admission: 09/14/19 12:30 Chief complaint: PT admitted to rule out preeclampsia History of present illness: PT is a at 33w 5 days today. PT was seen yesterday at [facility] and had BPs there of 160/105 and 170/103. PT with some recent issues with compliance to her BP meds (Labetalol 400 mg BID and Nifedipine 30 mg po qd). PT was advised to come to L&D but didn't come until today. Earlier today, pt notes seeing floaters but after taking her BP meds here in L&D and once her BPs improved, her visual sxs resolved. No MAO or RUQ pain. PT had a 24 hr urine prot 2 months ago of 210. PT is already Betamethasone complete from a different admission. Good FM noted. No VB or ctxs noted by pt. Since pt took her BP meds today in hospital, BPs much improved vs her BPs at [facility] Past History Past Medical History: hypertension, other (anemia, bipolar schizophrenia, HSV 2) Past Surgical History: section (x 2) Social history: no significant social history - Obstetrical History Expected Date of Delivery: 10/29/19 Actual Gestation: 33 Week(s) 4 Day(s) : 7 Para: 5 Hx # Term Pregnancies: 3 Number of Pregnancies: 2 (h/o 32 week PPROM, ho 33 week PTL) Spontaneous Abortions: 1 Number of Living Children: 5 Medications and Allergies Allergies Allergy/AdvReac Type Severity Reaction Status Date / Time No Known Allergies Allergy Verified 11/14/13 21:30 Home Medications Medication Instructions Recorded Confirmed Last Taken Type Vit Calc,Iron,Folic 1 each PO DAILY #30 tablet 10/08/17 09/14/19 09/14/19 12:00 Rx [ Vitamins] Labetalol [Labetalol 200mg TAB] 300 mg PO BID #60 tablet 10/25/17 09/14/19 09/14/19 12:00 Rx NIFEdipine XL [Procardia Xl] 30 mg PO QDAY #30 tablet 10/25/17 09/14/19 09/14/19 12:00 Rx Active Meds: Active Medications Acetaminophen (Tylenol) 650 mg PO Q4H PRN PRN Reason: Pain MILD(1-3)/Fever >100.5/MAO Acetaminophen (Tylenol) 650 mg PO Q4H PRN PRN Reason: Pain MILD(1-3)/Fever >100.5/MAO Docusate Sodium (Colace) 100 mg PO Q12H PRN PRN Reason: Constipation Docusate Sodium (Colace) 100 mg PO Q12H PRN PRN Reason: Constipation Hydralazine HCl (Apresoline) 10 mg IV Q30MIN PRN PRN Reason: HTN>160/110 Lactated Ringer's (Lactated Ringers) 1,000 mls @ 125 mls/hr IV DIRECT NOELLE Last Admin: 09/14/19 14:00 Dose: 125 mls/hr Documented by: Labetalol HCl (Labetalol) 400 mg PO BID NOELLE Multivitamins/Iron/Calcium ( Vitamin) 1 each PO QDAY NOELLE Multivitamins/Iron/Calcium ( Vitamin) 1 each PO QDAY NOELLE Review of Systems All systems: negative (see HPI) - Vital Signs Vital signs: Vital Signs Pulse Pulse Ox 114 H 98 09/14/19 12:58 09/14/19 12:58 Temp Pulse Resp BP Pulse Ox 98.2 F 101 H 165/99 99 09/14/19 13:10 09/14/19 20:00 09/14/19 20:00 09/14/19 16:54 - Physical Exam Cardiovascular: Regular rate Lungs: Positive: Clear to auscultation, Normal air movement Abdomen: Positive: normal appearance, soft - Obstetrical FHR: category 1 FHR comments: 140s, reactive, good LTV Uterine Contraction Pattern: Absent Results Result Diagrams: 09/14/19 14:21 09/14/19 14:21 Abnormal lab results 09/14/19 09/14/19 09/14/19 Range/Units 12:37 14:21 14:21 MCH 27 L (28-32) pg RDW 16.2 H (13.2-15.2) % [place] % (Auto) 9.0 H (0.0-7.3) % Seg Neutrophils % 72.5 H (40.0-70.0) % Chloride 107.9 H (98-107) mmol/L Carbon Dioxide 16 L (22-30) mmol/L BUN 3 L (7-17) mg/dL Creatinine 0.4 L (0.7-1.2) mg/dL ALT 5 L (7-56) units/L Albumin 3.3 L (3.9-5) g/dL Urine pH 8.0 H (5.0-7.0) All other labs normal. Assessment and Plan - Patient Problems (1) Hypertension complicating Current Visit: Yes Status: Acute Plan to address problem: PT's BPs are improved since she took her meds here in L&D. Importance of meds compliance d/w pt. Preeclamptic labs today WNL. 24 hr urine started today and will be completed tomorrow. Will observe until 24 hr urine results are back. Cont her Labetalol and Nifedipine.
[2019-09-15] MEDS ORDERED: PRENATAL VIT27-FE FUMARATE-FOLIC ACID VIT TAB PO SCH ×2 (10:00)
[2019-09-15] MEDS ORDERED: NIFEdipine XL 30 MG TAB PO SCH (10:00)
[2019-09-15 12:28] VITALS: BP 135/79
[2019-09-15 13:21] LABS: Creatinine 24 Hour,Urine 1.5 (0.8-2.8); Creatinine,Urine 80.5 mg/dL (0.1-20.0)
== END 2019-09-15 16:28 | disposition home or self-care (01) ==
LOC: INTOOBSV 12:30 → LD 12:30
PROVIDERS: ADMIT Obstetrics & Gynecology; ATTEND Obstetrics & Gynecology
DX: O16.3 Unspecified maternal hypertension, third trimester (principal); O14.93 Unspecified pre-eclampsia, third trimester; Z3A.33 33 weeks gestation of pregnancy; Z98.891 History of uterine scar from previous surgery
CPT/HCPCS: 36415; 80053; 81001; 82565; 82570; 84550; 85025; 85027; 86850; 86900; 86901; 99284; G0378; G0379; J7120

== ENCOUNTER 2019-10-08 12:42 | Inpatient (IN) | payer MEDICAID ==
[2019-10-08] MEDS ORDERED: MAGNESIUM SULFATE 4 GM/100 ML BAG IV ONE (13:18)
[2019-10-08] MEDS ORDERED: FAMOTIDINE 20 MG/2 ML INJ IV ONE (13:21)
[2019-10-08] MEDS ORDERED: BICITRA ORAL LIQD 30ML PO ONE (13:21)
[2019-10-08] MEDS ORDERED: METOCLOPRAMIDE 10 MG/2 ML INJ IV ONE (13:21)
--- NOTE | 2019-10-08 13:28 | History and Physical Report ---
History of Present Illness Date of examination: 10/08/19 Date of admission: 10/08/19 Chief complaint: Hypertensive Emergency History of present illness: Hypertensive emergency at term previous c/section x2 Multiplarity 34yo at 37+0/7 weeks, hypertensive emergency with BP 220/119 presents for evaluation. Patient given labetalol 20mg IV and Magnesium Sulfate was started. Marmolejo catheter placed to gravity and OR team notified for stat c/section with BT L Hx of schizophrenia and bipolar not on meds: stable Anemia H/O sectionx2, desires BTL H/O PTD HSV II Late PNC Labs: O/pos, antibody negative Pap NILM Rubella immune VDRL nonreactive HBsAg NR HIV NR PTL 253K Varicella Immune HSV-2 GC/Chlamydia negative Trich negative Vit D 19.5 MSFAP Negative Past History Past Medical History: hypertension Past Surgical History: section [employer] History: abnormal PAP smear Social history: no significant social history - Obstetrical History : 6 Medications and Allergies Allergies Allergy/AdvReac Type Severity Reaction Status Date / Time No Known Allergies Allergy Verified 11/14/13 21:30 Home Medications Medication Instructions Recorded Confirmed Last Taken Type Vit Calc,Iron,Folic 1 each PO DAILY #30 tablet 10/08/17 09/14/19 09/14/19 12:00 Rx [ Vitamins] NIFEdipine XL [Procardia Xl] 30 mg PO QDAY #30 tablet 10/25/17 09/14/19 09/14/19 12:00 Rx labetaloL [Labetalol 200mg TAB] 300 mg PO BID #60 tablet 10/25/17 09/14/19 09/14/19 12:00 Rx Active Meds: Active Medications Citric Acid/Sodium Citrate (Bicitra) 30 ml PO ONCE ONE Stop: 10/08/19 13:22 Famotidine (Pepcid) 20 mg IV ONCE ONE Stop: 10/08/19 13:22 Magnesium Sulfate (Magnesium Sulfate 4gm/100ml) 4 gm in 100 mls @ 25 mls/hr IV ONCE ONE Stop: 10/08/19 17:17 Magnesium Sulfate (Magnesium Sulfate 40gm/1000ml) 40 gm in 1,000 mls @ 50 mls/hr IV DIRECT NOELLE Oxytocin/Sodium Chloride (Pitocin/Ns 20 Unit/1000ml Drip) 20 units in 1,000 mls @ 0 mls/hr IV TITR NOELLE Lactated Ringer's (Lactated Ringers) 1,000 mls @ 2,250 mls/hr IV PREOP NOELLE Stop: 10/09/19 14:27 Cefazolin Sodium (Ancef/Sterile Water 2 Gm/20 Ml) 2 gm in 20 mls @ 80 mls/hr IV PREOP NR; Protocol Labetalol HCl (Labetalol) 20 mg IV ONCE ONE Stop: 10/08/19 13:10 Metoclopramide HCl (Reglan) 10 mg IV ONCE ONE Stop: 10/08/19 13:22 - Vital Signs Vital signs: Vital Signs Pulse BP 117 H 213/131 10/08/19 12:53 10/08/19 12:53 Temp Pulse Resp BP Pulse Ox 98.5 F 102 H 214/119 10/08/19 12:57 10/08/19 13:18 10/08/19 13:18 - Physical Exam Breasts: Positive: deferred Cardiovascular: Regular rate Lungs: Positive: Clear to auscultation Abdomen: Positive: normal appearance Genitourinary (Female): Positive: normal external genitalia Extremities: Positive: normal Deep Tendon Reflex Grade: Normal but brisk +3 Results Result Diagrams: 10/08/19 13:05 All other labs normal. Assessment and Plan Hypertensive Emergency Previous c/sectionx2 Multiparity Plan: TO OR for stat c/section Labatalol IV per ACOG protocol for hypertensive emergency Magnesium Sulfate 4gm bolus then 2gm/hr IV marmolejo NICU notified Informed consent obtained Plan for STAT c/section with bilateral tubal ligation Christel Alcantar MD
[2019-10-08 13:35] LABS: Basophils % (Auto) 0.3 % (0.0-1.8); Eosinophils # (Auto) 0.1 K/mm3 (0.0-0.4); Eosinophils % (Auto) 1.6 % (0.0-4.3); Hemoglobin 11.2 gm/dl (10.1-14.3); Lymphocytes # (Auto) 1.5 K/mm3 (1.2-5.4); Lymphocytes % (Auto) 18.2 % (13.4-35.0); Mean Corpuscular HGB Conc 33 % (30-34); Mean Corpuscular Volume 79 fl (79-97); Monocytes # (Auto) 0.7 K/mm3 (0.0-0.8); Monocytes % (Auto) 8.2 % (0.0-7.3); Platelet Count 300 K/mm3 (140-440); Red Blood Count 4.32 M/mm3 (3.65-5.03); Red Cell Distribution Width 16.2 % (13.2-15.2)
[2019-10-08] MEDS ORDERED: SODIUM CHLORIDE 0.9% 500 ML 500 ML IV SCH (13:53)
--- NOTE | 2019-10-08 13:55 | Anesthesia Consultation ---
Anesthesia Consult and Med Hx Date of service: 10/08/19 - Airway Anesthetic Teeth Evaluation: Poor ROM Head & Neck: Adequate Mental/Hyoid Distance: Adequate Mallampati Class: Class III Intubation Access Assessment: Probably Good - Pulmonary Exam CTA: Yes - Cardiac Exam Cardiac Exam: RRR - Pre-Operative Health Status ASA Pre-Surgery Classification: ASA3, Emergency Proposed Anesthetic Plan: Spinal - Pulmonary Hx Smoking: No Hx Asthma: No Hx Respiratory Symptoms: No SOB: No COPD: No Home Oxygen Therapy: No Hx Pneumonia: No Hx Sleep Apnea: No - Cardiovascular System Hx Hypertension: Yes (CHRONIC HTN WITH SUPERIMPOSED PRE-ECLAMPSIA) Hx Coronary Artery Disease: No Hx Heart Attack/AMI: No Hx Angina: No Hx Percutaneous Transluminal Coronary Angioplasty (PTCA): No Hx Cardia Arrhythmia: No Hx Pacemaker: No Hx Internal Defibrillator: No Hx Valvular Heart Disease: No Hx Heart Murmur: No Hx Peripheral Vascular Disease: No - Central Nervous System Hx Neuromuscular Disorder: No Hx Seizures: No CVA: No Hx Back Pain: No Hx Psychiatric Problems: Yes (bipolar, schizophrenia) - Gastrointestinal Hx Ulcer: No Hx Gastroesophageal Reflux Disease: No - Endocrine Hx Renal Disease: No Hx End Stage Renal Disease: No Hx Cirrhosis: No Hx Liver Disease: No Hx Insulin Dependent Diabetes: No Hx Non-Insulin Dependent Diabetes: No Hx Thyroid Disease: No Hx Hypothyroidism: No Hx Hyperthyroidism: No - Hematic Hx Anemia: Yes Hx Sickle Cell Disease: No - Other Systems Hx Alcohol Use: No Hx Substance Use: No Hx Cancer: No Hx Obesity: Yes (BMI 37.8)
[2019-10-08] MEDS ORDERED: LACTATED RINGERS 1,000 ML IV SCH (14:00)
[2019-10-08] MEDS ORDERED: ceFAZolin/Water 2 GM/20 ML 2 GM/20 ML SYRINGE IV NR (14:00)
[2019-10-08] MEDS ORDERED: OXYTOCIN 20 UNIT/1000ML DRIP 20 UNITS/1,000 ML BAG IV SCH ×2 (14:00→16:00)
[2019-10-08] MEDS ORDERED: ONDANSETRON 4 MG/2 ML INJ IV PRN ×2 (14:00→15:32)
[2019-10-08] MEDS ORDERED: HYDROmorphone 1 MG/1 ML INJ IV PRN (14:00)
--- NOTE | 2019-10-08 14:00 | Anesthesia Day of Surgery ---
Anesthesia Day of Surgery - Day of Surgery Patient Examined: Yes Patient H&P Reviewed: Yes Patient is NPO: Yes Beta Blockers: No Cardiac Clearance: No Pulmonary Clearance: No Maxwell's Test: N/A
[2019-10-08] MEDS ORDERED: WATER FOR IRRIG STERILE 1,500 ML BOTTLE IR ONE (14:12)
[2019-10-08] MEDS ORDERED: ceFAZolin/STERILE WATER 2 GM/20 ML SYRINGE IV ONE (14:12)
[2019-10-08] MEDS ORDERED: SODIUM CHLORIDE 0.9% IRR 1,500 ML BOTTLE IR ONE (14:12)
[2019-10-08] MEDS ORDERED: KETAMINE/STERILE WATER 50 MG/ML SYRINGE ONE (14:41)
[2019-10-08] MEDS ORDERED: PROPOFOL 200 MG/20 ML VIAL IV ONE (14:41)
[2019-10-08] MEDS ORDERED: ROCURONIUM 50 MG/5 ML INJ IV ONE (14:58)
[2019-10-08] MEDS ORDERED: OXYTOCIN 10 UNIT/1 ML INJ ONE (14:59)
[2019-10-08] MEDS ORDERED: ONDANSETRON 4 MG/2 ML INJ ONE (14:59)
[2019-10-08] MEDS ORDERED: NEOSTIGMINE 10MG/10 ML INJ MDV ONE (14:59)
[2019-10-08] MEDS ORDERED: GLYCOPYRROLATE 0.4 MG/2 ML INJ ONE (14:59)
[2019-10-08] MEDS ORDERED: dexAMETHasone 20 MG/5 ML VIAL ONE (15:02)
[2019-10-08] MEDS ORDERED: KETOROLAC 30 MG/1 ML INJ ONE (15:02)
[2019-10-08] MEDS ORDERED: SUCCINYLCHOLINE CHLORIDE 200 MG/10 ML INJ MDV ONE (15:03)
[2019-10-08] MEDS ORDERED: LIDOCAINE MPF (2%) 20 MG/1 ML VIAL 5 ML ONE (15:04)
[2019-10-08] MEDS ORDERED: MIDAZOLAM 2 MG/2 ML INJ ONE (15:05)
[2019-10-08] MEDS ORDERED: PROMETHAZINE 25 MG RECT SUPP PR PRN (15:32)
[2019-10-08] MEDS ORDERED: MAGNESIUM HYDROXIDE (MOM) ORAL LIQD UDC PO PRN (15:32)
[2019-10-08] MEDS ORDERED: LANOLIN/ZINC/DIMETHICONE (LANSINOH) 7 GM TP PRN (15:32)
[2019-10-08] MEDS ORDERED: WITCH HAZEL/ GLYCERIN PAD TP PRN (15:32)
[2019-10-08] MEDS ORDERED: NALOXONE 0.4 MG/1 ML INJ IV PRN (15:32)
--- NOTE | 2019-10-08 15:43 | Procedure Note ---
OB Delivery Note - Section Preop diagnosis: other (Hypertesnive Emergency, Multiparity) Postop diagnosis: same section procedure: repeat low transverse, bilateral tubal ligation Complications: none Narrative: Date of procedure:[10/08/19] Pre-operative diagnosis: [IUP At 37+0/7 weeks, Hypertensive Emergency, Multiparity] Post-operative diagnosis: [Same] Procedure name(s): [Emergent Repeat section via pfannenstiel incision, Modified Jean-Pierre Bilateral Tubal Ligation] Surgeon: [Nida Alcantar MD] Light Armored Vehicle Officer: [Scrub] Anesthesia: [GET] EBL: [500ml] Urine output: [100ml] Fluids: [1100ml] Findings: [normal uterus, tubes and ovaries bilaterally; viable male with weight 2326gms, 7,8.] Drains: Waddell to grqavity Complications: none Procedure: Patient was taking to the operating room after informed consent obtained. She was placed in left lateral supine position with a leftward tilt. Patient was then prepped and draped in sterile fashion after GET anesthesia. A time out was verified. A pfannenstiel skin incision was made with the scalpel, superior to the previous incision scar and carried down to the underlying layer of fascia with the scalpel. The fascia was then incised in the midline sharply and this incision was extended laterally with the curved Cotter scissors. The superior aspect of the fascia was grasped with Sumit clamps tented upward and dissected off of the anterior rectus muscles with the Cotter scissors. In similar fashion the inferior aspect of the fascia was grasped with Sumit clamps tented upward and dissected off of the anterior rectus muscles. The rectus muscles were then bluntly divided in the midline. The peritoneum was identified and entered atraumatically, sharply. The bladder blade was placed. A lower transverse uterine incision was made with the scalpel and extended laterally bluntly. The infant's head was then delivered atraumatically. The anterior shoulder and remainder of delivered without difficulty. Loose Nuchal Cord x2 The umbilical cord was clamped x2. The cord was cut. The infant was then placed in sterile bassinet. The cord gases and blood were then collected. The placenta was manually extracted in its entirety. The uterus was exteriorized and cleared of all clots and debris. The uterine incision was closed using 0 Vicryl in a running locking fashion. A second imbricating layer of the same suture was then created. Attention was then turned to the fallopian tubes. A knuckle of the fallopian tube was suture ligated 2 and transected. Portion of tube was then handed off for pathology. This was done bilaterally The posterior cul-de-sac was copiously irrigated. The uterus was returned to the abdomen. The gutters were also irrigated. The peritoneum closed with 2-0 vicryl. The an terior rectus muscles were reapproximated using 2-0 Vicryl. The anterior rectus fascia was reapproximated using 0 Vicryl in a running fashion. The subcuticular fat was reapproximated using 2-0 Vicryl in a interrupted fashion. The skin was reapproximated with austyn. The patient tolerated the procedure well. Sponge lap and needle counts were all correct x3. Patient was taken to the recovery room awake and in stable condition. There were no complications. Elaine ARMSTRONG
[2019-10-08 16:29] LABS: Alanine Aminotransferase 5 units/L (7-56); Albumin 3.3 g/dL (3.9-5); BUN/Creatinine Ratio 10; Blood Urea Nitrogen 4 mg/dL (7-17); Calcium 8.1 mg/dL (8.4-10.2); Hemolysis Index 16; Uric Acid 4.1 mg/dL (3.5-7.6)
[2019-10-08] MEDS: hydrALAZINE 20 MG/1 ML INJ IV PRN ×2 (16:39→21:18)
[2019-10-08] MEDS: HYDROmorphone 1 MG/1 ML INJ IV PRN ×2 (17:30→21:47)
[2019-10-08] MEDS: MAGNESIUM SULFATE 40GM/1000ML 40 GM/1,000 ML BAG IV SCH (19:40)
--- NOTE | 2019-10-08 23:11 | Event Note ---
Date: 10/08/19 Patient stable from a postoperative standpoint Urine output >75ml/hr, clear BP's average 170/100, plan for increase of Magnesium Sulfate to 3gm/hr with Hydralazine 20mgIV PRN BP>160/110. Labs WNL UDS not sent as ordered in triage and OR. Maternal status reassuring overall Continue to monitor closely Christel Alcantar MD
[2019-10-09] MEDS: HYDROmorphone 1 MG/1 ML INJ IV PRN ×2 (03:23→07:43)
[2019-10-09 04:07] LABS: Bilirubin,Urine NEG (Negative); Blood,Urine SM (Negative); Color,Urine Yellow (Yellow); Hyaline Casts,Urine 1 /LPF; Mucus,Urine FEW /HPF; Protein,Urine <15 mg/dL mg/dL (Negative); Urobilinogen,Urine < 2.0 mg/dL (<2.0)
[2019-10-09] MEDS ORDERED: LACTATED RINGERS 1,000 ML IV SCH (05:00)
[2019-10-09 05:56] LABS: Hematocrit 28.2 % (30.3-42.9); Hemoglobin 9.1 gm/dl (10.1-14.3)
[2019-10-09] MEDS: MAGNESIUM SULFATE 40GM/1000ML 40 GM/1,000 ML BAG IV SCH (08:20)
[2019-10-09] MEDS ORDERED: ACETAMINOPHEN 325 MG TAB PO PRN (12:30)
--- NOTE | 2019-10-09 12:44 | Progress Note ---
Assessment and Plan - Patient Problems (1) Post-operative state Current Visit: Yes Status: Acute (2) Pre-eclampsia superimposed on chronic hypertension Current Visit: No Status: Acute Plan to address problem: Will complete 24 hrs of MgSO4 post . Was started on labetalol and JENNIFER. Subjective - Subjective Date of service: 10/09/19 Principal diagnosis: Preeclampsia Interval history: Status post delivery Day 1. On MgSO4 for preeclampsia. BPs were stable. Patient was comfortable and wanted to eat, get out of her bed. Patient reports: appetite normal, pain well controlled [place]: doing well Objective - Vital Signs Latest vital signs: Vital Signs Temp Pulse Resp BP BP Pulse Ox 10/09/19 12:11 100 H 136/90 10/09/19 11:41 101 H 145/98 10/09/19 11:26 107 H 18 138/92 10/09/19 11:11 107 H 138/92 10/09/19 10:41 101 H 125/89 10/09/19 10:11 97 H 129/90 10/09/19 09:41 100 H 114/88 10/09/19 09:11 96 H 132/89 10/09/19 08:45 98.6 F 104 H 18 143/94 99 10/09/19 08:41 100 H 127/84 10/09/19 08:11 100 H 137/91 10/09/19 07:56 98.6 F 100 H 16 137/91 10/09/19 07:43 18 10/09/19 07:41 105 H 138/98 10/09/19 07:29 107 H 132/94 10/09/19 07:25 107 H 141/97 10/09/19 07:11 107 H 143/97 10/09/19 06:41 106 H 141/97 10/09/19 06:11 102 H 135/96 10/09/19 05:42 103 H 127/90 10/09/19 05:35 97.8 F 10/09/19 05:07 100 H 143/96 10/09/19 04:57 100 H 150/92 10/09/19 04:47 98 H 150/89 10/09/19 04:37 101 H 143/90 10/09/19 04:27 99 H 150/89 10/09/19 04:17 100 H 151/91 10/09/19 04:07 101 H 140/94 10/09/19 03:50 100 H 156/107 10/09/19 03:29 112 H 159/102 10/09/19 03:23 20 10/09/19 02:29 107 H 137/96 10/09/19 01:29 107 H 125/89 10/09/19 00:26 102 H 140/76 10/08/19 23:56 101 H 148/94 10/08/19 23:26 109 H 145/89 10/08/19 22:56 102 H 130/90 10/08/19 22:26 107 H 132/76 10/08/19 21:55 108 H 148/81 10/08/19 21:50 106 H 149/82 10/08/19 21:47 16 10/08/19 21:45 103 H 136/78 10/08/19 21:40 110 H 139/78 10/08/19 21:35 108 H 142/82 10/08/19 21:30 109 H 158/98 10/08/19 21:25 97 H 164/103 10/08/19 21:20 89 169/111 10/08/19 21:18 96 H 182/116 10/08/19 21:09 96 H 182/116 10/08/19 21:05 96 H 181/107 10/08/19 20:35 104 H 165/105 10/08/19 20:05 93 H 136/97 10/08/19 19:40 97.8 F 88 16 137/95 10/08/19 19:35 94 H 156/96 10/08/19 19:21 86 137/95 10/08/19 19:00 86 144/93 10/08/19 18:45 86 148/93 10/08/19 18:30 86 155/88 10/08/19 18:15 85 155/86 10/08/19 18:00 88 143/88 10/08/19 17:45 85 134/77 10/08/19 17:30 86 147/94 10/08/19 17:15 85 140/87 10/08/19 16:40 97.4 F L 70 18 158/100 100 10/08/19 16:39 69 187/106 10/08/19 16:25 76 18 186/114 93 10/08/19 16:10 73 22 190/122 94 10/08/19 15:55 77 20 195/123 95 10/08/19 15:50 81 20 183/129 94 10/08/19 15:44 97.3 F L 88 20 202/137 98 10/08/19 14:03 101 H 198/110 10/08/19 13:58 111 H 174/114 10/08/19 13:53 109 H 182/121 10/08/19 13:49 105 H 195/111 10/08/19 13:43 106 H 226/125 10/08/19 13:41 107 H 219/116 10/08/19 13:38 107 H 219/116 10/08/19 13:33 105 H 204/114 10/08/19 13:28 104 H 213/116 10/08/19 13:23 111 H 202/112 10/08/19 13:18 102 H 214/119 10/08/19 13:13 108 H 228/125 10/08/19 13:00 121 H 203/126 10/08/19 12:57 98.5 F 10/08/19 12:53 117 H 213/131 Intake and Output 10/08/19 10/09/19 10/09/19 23:59 07:59 15:59 Intake Total 365.0 1037.50 38.333 Output Total 850 750 175 Balance -485.0 287.50 -136.667 Intake: IV 365.0 1037.50 38.333 Lactated Ringers 1,000 ml 211.25 @ 75 mls/hr IV TITR NOELLE Rx#:[id number] MAGNESIUM SULFATE 40GM/ 142.5 528.75 38.333 1000ML 40 gm In 1,000 ml @ 2 GM/HR 50 mls/hr IV DIRECT NOELLE Rx#:[id number] PITOCin/NS 20 UNIT/1000ML 212.5 297.5 DRIP 20 units In 1,000 ml @ As Directed IV TITR NOELLE Rx#:[id number] Right Forearm 10 Output: Urine 850 750 175 Indwelling Catheter 750 750 175 Other: Total, Output Amount 100 250 175 - Exam Breasts: Present: deferred Lungs: Present: Normal air movement Abdomen: Present: normal appearance, soft, normal bowel sounds Extremities: Present: normal Deep Tendon Reflex Grade: Normal +2 Incision: Present: normal, dry, intact - Labs Labs: Abnormal lab results 10/08/19 10/08/19 10/08/19 Range/Units 13:05 13:05 15:50 Hgb (10.1-14.3) gm/dl Hct (30.3-42.9) % MCH 26 L (28-32) pg RDW 16.2 H (13.2-15.2) % [place] % (Auto) 8.2 H (0.0-7.3) % Seg Neutrophils % 71.7 H (40.0-70.0) % Carbon Dioxide 17 L (22-30) mmol/L BUN 4 L (7-17) mg/dL Creatinine 0.4 L (0.7-1.2) mg/dL Glucose 133 H (65-100) mg/dL Calcium 8.1 L (8.4-10.2) mg/dL Magnesium (1.7-2.3) mg/dL ALT 5 L (7-56) units/L Lactate Dehydrogenase 256 H (91-180) units/L Albumin 3.3 L (3.9-5) g/dL Crossmatch See Detail 10/09/19 10/09/19 10/09/19 Range/Units 00:19 05:27 05:27 Hgb 9.1 L (10.1-14.3) gm/dl Hct 28.2 L (30.3-42.9) % MCH (28-32) pg RDW (13.2-15.2) % [place] % (Auto) (0.0-7.3) % Seg Neutrophils % (40.0-70.0) % Carbon Dioxide (22-30) mmol/L BUN (7-17) mg/dL Creatinine (0.7-1.2) mg/dL Glucose (65-100) mg/dL Calcium (8.4-10.2) mg/dL Magnesium 7.20 H 7.70 H (1.7-2.3) mg/dL ALT (7-56) units/L Lactate Dehydrogenase (91-180) units/L Albumin (3.9-5) g/dL Crossmatch
[2019-10-09] MEDS: HYDROcodone/ACETAMINOPHEN 5-325 MG TAB PO PRN ×2 (14:02→22:18)
[2019-10-09] MEDS: IBUPROFEN 800 MG TAB PO PRN (14:59)
[2019-10-10] MEDS: IBUPROFEN 800 MG TAB PO PRN ×2 (00:43→20:33)
[2019-10-10] MEDS: HYDROcodone/ACETAMINOPHEN 5-325 MG TAB PO PRN ×2 (05:13→15:28)
--- NOTE | 2019-10-10 14:18 | Progress Note ---
Subjective - Subjective Date of service: 10/10/19 Principal diagnosis: Preeclampsia Interval history: POD#2 Doing well AAOx2 tolerating PO ambulatory afebrile no BM, no Flatus Vital Signs Temp 97.8 F 10/10/19 08:16 Pulse 87 10/10/19 08:16 Resp 18 10/10/19 08:16 BP 102/62 10/10/19 08:16 Pulse Ox 95 10/10/19 08:16 Intake & Output 10/09/19 10/10/19 10/10/19 23:59 11:59 23:59 Intake Total 200 480 Output Total 375 Balance -175 480 Intake: Oral 200 Intake, Free Water 480 Output: Urine 375 Indwelling Catheter 200 Uretheral (Waddell) 175 Other: Total, Intake Amount 200 Total, Output Amount 200 Voiding Method Toilet PE: VSS RRR LCTAB ABD: soft, NT Incision C/D/I Ext: +1 edema, DTR's WNL, negative Idalia's sign b/l Laboratory Last Values WBC 8.5 K/mm3 (4.5-11.0) 10/08/19 13:05 RBC 4.32 M/mm3 (3.65-5.03) 10/08/19 13:05 Hgb 9.1 gm/dl (10.1-14.3) L 10/09/19 05:27 Hct 28.2 % (30.3-42.9) L 10/09/19 05:27 MCV 79 fl (79-97) 10/08/19 13:05 MCH 26 pg (28-32) L 10/08/19 13:05 MCHC 33 % (30-34) 10/08/19 13:05 RDW 16.2 % (13.2-15.2) H 10/08/19 13:05 Plt Count 300 K/mm3 (140-440) 10/08/19 13:05 Lymph % (Auto) 18.2 % (13.4-35.0) 10/08/19 13:05 [place] % (Auto) 8.2 % (0.0-7.3) H 10/08/19 13:05 Eos % (Auto) 1.6 % (0.0-4.3) 10/08/19 13:05 Baso % (Auto) 0.3 % (0.0-1.8) 10/08/19 13:05 Lymph # 1.5 K/mm3 (1.2-5.4) 10/08/19 13:05 [place] # 0.7 K/mm3 (0.0-0.8) 10/08/19 13:05 Eos # 0.1 K/mm3 (0.0-0.4) 10/08/19 13:05 Baso # 0.0 K/mm3 (0.0-0.1) 10/08/19 13:05 Seg Neutrophils % 71.7 % (40.0-70.0) H 10/08/19 13:05 Seg Neutrophils # 6.1 K/mm3 (1.8-7.7) 10/08/19 13:05 POC ABG pH 7.357 (7.35-7.45) 10/08/19 15:18 POC ABG pCO2 37.0 (35-45) 10/08/19 15:18 POC ABG HCO3 20.8 (22-26 mml/L) 10/08/19 15:18 POC ABG Total CO2 22 (23-27mmol/L) 10/08/19 15:18 POC ABG O2 Sat 56 10/08/19 15:18 POC ABG Base Excess -5 ((-2) - (+3)mmol/L) 10/08/19 15:18 FiO2 21 % 10/08/19 15:18 Sodium 138 mmol/L (137-145) 10/08/19 15:50 Potassium 3.9 mmol/L (3.6-5.0) 10/08/19 15:50 Chloride 105.0 mmol/L (98-107) 10/08/19 15:50 Carbon Dioxide 17 mmol/L (22-30) L 10/08/19 15:50 Anion Gap 20 mmol/L 10/08/19 15:50 BUN 4 mg/dL (7-17) L 10/08/19 15:50 Creatinine 0.4 mg/dL (0.7-1.2) L 10/08/19 15:50 Estimated GFR > 60 ml/min 10/08/19 15:50 BUN/Creatinine Ratio 10 % 10/08/19 15:50 Glucose 133 mg/dL (65-100) H 10/08/19 15:50 Uric Acid 4.1 mg/dL (3.5-7.6) 10/08/19 15:50 Calcium 8.1 mg/dL (8.4-10.2) L 10/08/19 15:50 Magnesium 6.90 mg/dL (1.7-2.3) H 10/09/19 19:08 Total Bilirubin 0.20 mg/dL (0.1-1.2) 10/08/19 15:50 AST 14 units/L (5-40) 10/08/19 15:50 ALT 5 units/L (7-56) L 10/08/19 15:50 Alkaline Phosphatase 124 units/L (35-129) 10/08/19 15:50 Lactate Dehydrogenase 256 units/L (91-180) H 10/08/19 15:50 Total Protein 7.0 g/dL (6.3-8.2) 10/08/19 15:50 Albumin 3.3 g/dL (3.9-5) L 10/08/19 15:50 Albumin/Globulin Ratio 0.9 % 10/08/19 15:50 Urine Color Yellow (Yellow) 10/09/19 03:10 Urine Turbidity Clear (Clear) 10/09/19 03:10 Urine pH 5.0 (5.0-7.0) 10/09/19 03:10 Ur Specific [place] 1.013 (1.003-1.030) 10/09/19 03:10 Urine Protein <15 mg/dl mg/dL (Negative) 10/09/19 03:10 Urine Glucose (UA) Neg mg/dL (Negative) 10/09/19 03:10 Urine Ketones Neg mg/dL (Negative) 10/09/19 03:10 Urine Blood Sm (Negative) 10/09/19 03:10 Urine Nitrite Neg (Negative) 10/09/19 03:10 Urine Bilirubin Neg (Negative) 10/09/19 03:10 Urine Urobilinogen < 2.0 mg/dL (<2.0) 10/09/19 03:10 Ur Leukocyte Esterase Neg (Negative) 10/09/19 03:10 Urine WBC (Auto) 3.0 /HPF (0.0-6.0) 10/09/19 03:10 Urine RBC (Auto) 4.0 /HPF (0.0-6.0) 10/09/19 03:10 U Epithel Cells (Auto) < 1.0 /HPF (0-13.0) 10/09/19 03:10 Hyaline Casts 1 /LPF 10/09/19 03:10 Urine Mucus Few /HPF 10/09/19 03:10 Blood Type O POSITIVE 10/08/19 13:05 Antibody Screen Negative 10/08/19 13:05 Crossmatch See Detail 10/08/19 13:05 POD#2 Severe Preeclampsia/Hypertensive Emergency at term Previous c/sectionx2 Multiparity Plan: Patient stable on PO antihypertensives routine and postoperative care pathology reviewed: benign bilateral fallopian tubes baby doing well Maternal status reassuring at bedside Christel Alcantar MD Objective - Vital Signs Latest vital signs: Vital Signs Temp Pulse Resp BP BP Pulse Ox 10/10/19 08:16 97.8 F 87 18 102/62 95 10/10/19 00:42 97.2 F L 89 20 116/72 100 10/09/19 22:23 96 H 114/70 10/09/19 16:59 98.6 F 100 H 22 137/99 100 10/09/19 16:24 144/93 10/09/19 16:21 101 H 144/93 10/09/19 16:11 100 H 136/90 10/09/19 15:41 101 H 138/90 10/09/19 15:11 100 H 135/92 10/09/19 14:59 22 10/09/19 14:41 100 H 133/90 Intake and Output 10/09/19 10/10/19 10/10/19 23:59 07:59 15:59 Intake Total 200 240 240 Output Total 175 Balance 25 240 240 Intake: Oral 200 Intake, Free Water 240 240 Output: Urine 175 Uretheral (Waddell) 175 Other: Total, Intake Amount 200 Voiding Method Toilet - Labs Labs: Abnormal lab results 10/09/19 Range/Units 19:08 Magnesium 6.90 H (1.7-2.3) mg/dL
[2019-10-11] MEDS: HYDROcodone/ACETAMINOPHEN 5-325 MG TAB PO PRN ×2 (02:56→09:20)
[2019-10-11] MEDS: SIMETHICONE 80 MG CHEW TAB PO PRN ×2 (02:59→16:31)
[2019-10-11] MEDS: IBUPROFEN 800 MG TAB PO PRN (09:19)
--- NOTE | 2019-10-11 11:39 | Progress Note ---
Assessment and Plan A: POD#3 s/p Repeat c/s with BTL Preeclampsia (s/p MgSo4; Labetalol 200mg BID) VSS Pain well controlled Stable P: Continue routine PP/PO orders Abdominal binder Continue Labetalol 200mg PO BID Anticipate discharge home today Follow-up in office 1 week Subjective - Subjective Date of service: 10/11/19 Principal diagnosis: POD#3 s/p Repeat c/s with BTL; Preeclampsia Patient reports: appetite normal, voiding normally, pain well controlled, flatus, ambulating normally, no bowel movement : doing well, other (Breast/bottle) Objective - Vital Signs Latest vital signs: Vital Signs Temp Pulse Resp BP BP Pulse Ox 10/11/19 09:20 20 10/11/19 09:19 20 10/11/19 09:11 97.7 F 105 H 18 149/88 96 10/11/19 02:02 98.3 F 95 H 20 125/85 10/10/19 22:09 99 H 136/82 10/10/19 22:08 104 H 136/82 98 10/10/19 15:43 98.5 F 98 H 18 145/76 95 Intake and Output 10/10/19 10/11/19 10/11/19 23:59 07:59 15:59 Intake Total 1200 360 240 Balance 1200 360 240 Intake: Oral 480 Intake, Free Water 720 360 240 Other: Total, Intake Amount 480 Voiding Method Toilet # Voids Void 4 1 1 - Exam Breasts: Present: normal, Cardiovascular: Present: Regular rate, Normal S1, Normal S2, No murmurs Lungs: Present: Clear to auscultation, Normal air movement Abdomen: Present: normal appearance, soft, tenderness (as expected post-op), normal bowel sounds. Absent: distention Vulva: both: normal Uterus: Present: firm, fundal height at umbilicus Extremities: Present: normal Deep Tendon Reflex Grade: Normal +2 Incision: Present: normal, dry, intact, dressed (Steri strips CDI) - Labs Labs: Abnormal lab results 10/08/19 Range/Units 13:05 Crossmatch See Detail
--- NOTE | 2019-10-11 11:43 | Discharge Summary ---
Providers - Providers Date of Admission: 10/08/19 12:43 Date of discharge: 10/11/19 Attending physician: LOUISE LAU MD Primary care physician: LOUISE LAU MD Hospitalization Reason for admission: IUP at term Delivery: Procedure: bilateral tubal ligation, repeat low transverse Procedure details: See H&P and operative note Incision: normal, dry, intact, dressed (Steri Strips CDI) complications: none Discharge diagnosis: IUP at term delivered baby: male Condition at discharge: Good Disposition: DC-01 TO HOME OR SELFCARE Plan - Discharge Medications Prescriptions: labetaloL [Labetalol 200mg TAB] 200 mg PO BID #60 tablet Ibuprofen [Motrin 800 MG tab] 800 mg PO Q8HR PRN #30 tablet PRN Reason: Pain, Mild (1-3) oxyCODONE /ACETAMINOPHEN [Percocet 5/325] 1 tab PO Q6HR PRN #20 tablet PRN Reason: Pain - Provider Discharge Summary Activity: routine, no sex for 6 weeks, no heavy lifting 4 weeks, no strenuous exercise Diet: routine Instructions: routine Additional instructions: [] Smoking cessation referral if applicable(refer to patient education folder for contact #) [] Refer to [facility]'s [facility] Booklet Call your doctor immediately for: * Fever > 100.5 * Heavy vaginal bleeding ( >1 pad per hour) * Severe persistent headache * Shortness of breath * Reddened, hot, painful area to leg or breast * Drainage or odor from incision. * Keep incision clean and dry at all times and follow doctor's instructions regarding bathing/showering Take Labetalol 200mg PO twice daily Follow-up in office in 1 week for incision and B/P check - Follow up plan Follow up: LOUISE LAU MD [Primary Care Provider] - 7 Days
[2019-10-11 16:29] VITALS: BP 137/57
== END 2019-10-11 17:05 | disposition home or self-care (01) | DRG 765 ==
LOC: TRG 12:42 → LD 12:43 → OB 10-09 16:52
PROVIDERS: ADMIT Obstetrics & Gynecology; ATTEND Obstetrics & Gynecology
PROC: 10D00Z1 Extraction of Products of Conception, Low, Open Approach (ICD-10-PCS; principal; 2019-10-08)
PROC: 0UB70ZZ Excision of Bilateral Fallopian Tubes, Open Approach (ICD-10-PCS; 2019-10-08)
PROC: 4A033R1 Measurement of Arterial Saturation, Peripheral, Percutaneous Approach (ICD-10-PCS; 2019-10-08)
DX: O34.211 Maternal care for low transverse scar from previous cesarean delivery (principal); I16.1 Hypertensive emergency; O10.02 Pre-existing essential hypertension complicating childbirth; Z3A.37 37 weeks gestation of pregnancy; Z37.0 Single live birth; O11.4 Pre-existing hypertension with pre-eclampsia, complicating childbirth; O99.214 Obesity complicating childbirth
CPT/HCPCS: 36415; 80053; 81001; 82565; 82803; 83615; 83735; 84550; 85014; 85018; 85025; 86850; 86900; 86901; 86920; 88302; G0378; J0330; J0360; J0690; J1100; J1170; J1885; J2250; J2405; J2590; J2704; J2710; J2765; J3475; J7120